=== PATIENT | male | born 1960 | race Hispanic/Latino ===

== ENCOUNTER 2019-04-07 22:22 | Emergency (ER) | payer SELFPAY ==
--- OUTSIDE RECORDS SUMMARY | 2019-04-07 22:24 | XMS REPORT ---
:1960 [facility] [address] [place] [address] Dr. Leavitt [address] [place] [id number] Care Team Providers Name Role Phone Unavailable Unavailable Unavailable Problems This patient has no known problems. Allergies, Adverse Reactions, Alerts This patient has no known allergies or adverse reactions. Medications This patient has no known medications.
[2019-04-07 23:08] LABS: Basophils % 1.3 % (0-1.3); Eosinophils % 6.5 % (0-4.4); Hematocrit 42.6 % (39.6-49.0); Lymphocytes % 19.8 % (15.3-44.8); MPV 9.8 fL (7.6-11.3); Monocytes % 11.9 % (3.3-12.3); RBC Red Blood Cell Count 4.45 M/uL (4.33-5.43)
[2019-04-07 23:18] LABS: Albumin 2.7 g/dL (3.4-5.0); Bilirubin Direct 0.5 mg/dL (0-0.2); Bilirubin Total 1.1 mg/dL (0.2-1.0); Potassium 3.8 mmol/L (3.5-5.1); Protein, Total 8.1 g/dL (6.4-8.2)
[2019-04-07] MEDS ORDERED: ONDANSETRON 4 MG/2 ML VIAL ONE (23:46)
[2019-04-07] MEDS ORDERED: MORPHINE 4 MG/ML SYR ONE (23:46)
[2019-04-08 00:07] LABS: Blood Morphology Comment NOT SEEN (NOT SEEN); Platelet Estimate DECR; Urine White Blood Cell Casts OK
--- NOTE | 2019-04-08 01:29 | ER ---
Nurse's Notes [facility] Name: Jas Styles Age: 59 yrs Sex: Male : 1960 Arrival Date: 04/07/2019 Time: 22:25 Bed 19 Private MD: Diagnosis: 8 mm stone at left UVJ with moderate left hydroutrteronephrosis. 4 cm mass right hepatic lobe Presentation: 04/07 22:28 Presenting complaint: EMS states: patient was newly diagnosed 3 months ago with liver mg2 CA (2 spots). now he is complaining of bilateral LQ pain but more on the right. Transition of care: patient was not received from another setting of care. Onset of symptoms was January 2019. Risk Assessment: Do you want to hurt yourself or someone else? Patient reports no desire to harm self or others. Initial Sepsis Screen: Does the patient meet any 2 criteria? No. Patient's initial sepsis screen is negative. Does the patient have a suspected source of infection? No. Patient's initial sepsis screen is negative. Care prior to arrival: None. 22:28 Method Of Arrival: EMS: [facility] mg2 22:28 Acuity: SADE 3 mg2 Historical: - Allergies: 22:32 No Known Allergies; mg2 - Home Meds: 22:32 None [Active]; mg2 - PMHx: 22:32 liver CA; liver cirrhosis; hepatitis B and C; mg2 - PSHx: 22:32 spinal surgery-cadaver bone was placement; mg2 - Immunization history:: Flu vaccine is not up to date. - Social history:: Smoking status: Patient/guardian denies using tobacco, Patient uses alcohol, only on a social basis. Patient/guardian denies using street drugs, IV drugs. - Ebola Screening: : No symptoms or risks identified at this time. Screenin:48 Abuse screen: Denies threats or abuse. Nutritional screening: No deficits noted. tl2 Tuberculosis screening: No symptoms or risk factors identified. Fall Risk None identified. Assessment: 22:48 General: Appears in no apparent distress. comfortable, Behavior is calm, cooperative, tl2 appropriate for age. Pain: Complains of pain in right upper quadrant and right lower quadrant. Neuro: Level of Consciousness is awake, alert, obeys commands, Oriented to person, place, time, situation. Respiratory: Airway is patent Respiratory effort is even, unlabored, Respiratory pattern is regular, symmetrical. GI: Bowel sounds present X 4 quads. Abd is soft Abdomen is tender to palpation in right upper quadrant and right lower quadrant. : No signs and/or symptoms were reported regarding the genitourinary system. Derm: Skin is pink, warm \T\ dry. 04/08 00:00 Reassessment: Patient appears in no apparent distress at this time. Patient and/or tl2 family updated on plan of care and expected duration. Pain level reassessed. Patient is alert, oriented x 3, equal unlabored respirations, skin warm/dry/pink. Patient states feeling better. 01:43 Reassessment: Patient appears in no apparent distress at this time. Patient and/or tl2 family updated on plan of care and expected duration. Pain level reassessed. Patient is alert, oriented x 3, equal unlabored respirations, skin warm/dry/pink. pt verbalized understanding of discharge instructions, need for follow up and prescription usage. Vital Signs: 04/07 22:30 BP 148 / 92; Pulse 74; Resp 18; Temp 98.8; Pulse Ox 96% ; Weight 95.25 kg; Height 5 ft. mg2 10 in. (177.80 cm); Pain 8/10; 04/08 00:16 BP 139 / 83; Pulse 75; Resp 18; Pulse Ox 96% on R/A; tl2 01:43 BP 130 / 88; Pulse 78; Resp 18; Pulse Ox 97% on R/A; tl2 04/07 22:30 Body Mass Index 30.13 (95.25 kg, 177.80 cm) mg2 ED Course: 04/07 22:25 Patient arrived in ED. tl2 22:30 Triage completed. mg2 22:32 Arm band placed on. mg2 22:47 Megha Mcfarland, ASHELY is Primary Nurse. tl2 22:48 Patient has correct armband on for positive identification. Bed in low position. Call tl2 light in reach. Side rails up X 1. 22:48 Inserted saline lock: 22 gauge in right antecubital area, using aseptic technique. tl2 Blood collected. 23:09 Russell Carroll MD is Attending Physician. reginaldo 04/08 00:10 CT completed. Patient tolerated procedure well. Patient moved to CT via stretcher. Patient moved back from CT. 01:23 Barbara Fitch MD is Referral Physician. pkl 01:43 No provider procedures requiring assistance completed. IV discontinued, intact, tl2 bleeding controlled, No redness/swelling at site. Pressure dressing applied. Administered Medications: 04/07 23:34 Drug: morphine 4 mg Route: IVP; Site: right antecubital; mg2 04/08 00:00 Follow up: Response: No adverse reaction; Pain is decreased tl2 04/07 23:34 Drug: Zofran 4 mg Route: IVP; Site: right antecubital; mg2 04/08 00:00 Follow up: Response: No adverse reaction tl2 Outcome: 01:27 Discharge ordered by MD. pkl 01:43 Discharged to home ambulatory, with family. tl2 01:43 Condition: stable 01:43 Discharge instructions given to patient, Instructed on discharge instructions, follow up and referral plans. medication usage, Demonstrated understanding of instructions, follow-up care, medications, Prescriptions given X 2. 01:44 Patient left the ED. tl2 Signatures: Russell Carroll MD MD pkl Kulwinder Arora Megha Mcfarland RN RN tl2 Harpreet Russo RN RN mg2
--- NOTE | 2019-04-08 01:30 | EDPHYS ---
Physician Documentation [facility] Name: Jas Styles Age: 59 yrs Sex: Male : 1960 Arrival Date: 04/07/2019 Time: 22:25 Bed 19 Private MD: ED Physician Russell Carroll HPI: 04/07 23:26 This 59 yrs old Male presents to ER via EMS with complaints of Abd Pain > 50 pkl y/o. 23:26 The patient presents with abdominal pain in the lower abdomen. Onset: The pkl symptoms/episode began/occurred today. Patient diagnosed 3 months with liver cancer. 23:35 The symptoms do not radiate. Associated signs and symptoms: none. pkl Historical: - Allergies: 22:32 No Known Allergies; mg2 - Home Meds: 22:32 None [Active]; mg2 - PMHx: 22:32 liver CA; liver cirrhosis; hepatitis B and C; mg2 - PSHx: 22:32 spinal surgery-cadaver bone was placement; mg2 - Immunization history:: Flu vaccine is not up to date. - Social history:: Smoking status: Patient/guardian denies using tobacco, Patient uses alcohol, only on a social basis. Patient/guardian denies using street drugs, IV drugs. - Ebola Screening: : No symptoms or risks identified at this time. ROS: 23:35 Eyes: Negative for injury, pain, redness, and discharge, ENT: Negative for injury, pkl pain, and discharge, Neck: Negative for injury, pain, and swelling, Cardiovascular: Negative for chest pain, palpitations, and edema, Respiratory: Negative for shortness of breath, cough, wheezing, and pleuritic chest pain. 23:35 Abdomen/GI: Positive for abdominal pain, of the right lower quadrant and left lower quadrant. 23:35 Back: Negative for acute changes. 23:35 : Negative for urinary symptoms. 23:35 MS/extremity: Negative for acute changes. 23:35 Skin: Negative for rash. 23:35 Neuro: Negative for altered mental status. Exam: 23:35 Head/Face: Normocephalic, atraumatic. Eyes: Pupils equal round and reactive to light, pkl extra-ocular motions intact. Lids and lashes normal. Conjunctiva and sclera are non-icteric and not injected. Cornea within normal limits. Periorbital areas with no swelling, redness, or edema. ENT: Nares patent. No nasal discharge, no septal abnormalities noted. Tympanic membranes are normal and external auditory canals are clear. Oropharynx with no redness, swelling, or masses, exudates, or evidence of obstruction, uvula midline. Mucous membranes moist. Neck: Trachea midline, no thyromegaly or masses palpated, and no cervical lymphadenopathy. Supple, full range of motion without nuchal rigidity, or vertebral point tenderness. No Meningismus. Chest/axilla: Normal chest wall appearance and motion. Nontender with no deformity. No lesions are appreciated. Cardiovascular: Regular rate and rhythm with a normal S1 and S2. No gallops, murmurs, or rubs. Normal PMI, no JVD. No pulse deficits. Respiratory: Lungs have equal breath sounds bilaterally, clear to auscultation and percussion. No rales, rhonchi or wheezes noted. No increased work of breathing, no retractions or nasal flaring. 23:35 Abdomen/GI: Bowel sounds: normal, Palpation: soft, mild abdominal tenderness, in the right lower quadrant and left lower quadrant. 23:35 Back: Exam negative for acute changes. 23:35 : Exam negative for acute changes. 23:35 Musculoskeletal/extremity: Exam is negative for acute changes. 23:35 Skin: Exam negative for rash. 23:35 Neuro: Orientation: is normal, Mentation: is normal, Cranial nerves: grossly normal, Motor: is normal. Vital Signs: 22:30 BP 148 / 92; Pulse 74; Resp 18; Temp 98.8; Pulse Ox 96% ; Weight 95.25 kg; Height 5 ft. mg2 10 in. (177.80 cm); Pain 8/10; 04/08 00:16 BP 139 / 83; Pulse 75; Resp 18; Pulse Ox 96% on R/A; tl2 01:43 BP 130 / 88; Pulse 78; Resp 18; Pulse Ox 97% on R/A; tl2 04/07 22:30 Body Mass Index 30.13 (95.25 kg, 177.80 cm) mg2 MDM: 04/07 23:09 Patient medically screened. pkl 04/08 01:22 Data reviewed: vital signs, nurses notes, lab test result(s), radiologic studies, CT pkl scan. 04/07 22:47 Order name: Basic Metabolic Panel; Complete Time: 23:22 tl2 04/07 22:47 Order name: CBC with Diff; Complete Time: 00:31 tl2 04/07 22:47 Order name: Creatinine for Radiology; Complete Time: 23:22 tl2 04/07 22:47 Order name: Hepatic Function; Complete Time: 23:22 tl2 04/07 22:47 Order name: Lipase; Complete Time: 23:22 tl2 04/07 23:11 Order name: CBC Smear Scan; Complete Time: 00:31 EDMS 04/07 22:47 Order name: IV Saline Lock; Complete Time: 22:48 tl2 04/07 22:47 Order name: Labs collected and sent; Complete Time: 22:48 tl2 04/07 23:24 Order name: CT Abd/Pelvis - IV Contrast Only pkl Administered Medications: 04/07 23:34 Drug: morphine 4 mg Route: IVP; Site: right antecubital; mg2 04/08 00:00 Follow up: Response: No adverse reaction; Pain is decreased tl2 04/07 23:34 Drug: Zofran 4 mg Route: IVP; Site: right antecubital; mg2 04/08 00:00 Follow up: Response: No adverse reaction tl2 Disposition: 04/08/19 01:27 Discharged to Home. Impression: 8 mm stone at left UVJ with moderate left hydroutrteronephrosis. 4 cm mass right hepatic lobe. - Condition is Stable. - Prescriptions for Tylenol- Codeine #3 300-30 mg Oral Tablet - take 2 tablet by ORAL route every 6 hours As needed; 30 tablet. Flomax 0.4 mg Oral Capsule, Sust. Release 24 hr - take 1 capsule by ORAL route once daily 1/2 hour following the same meal each day; 15 capsule. - Medication Reconciliation Form, Thank You Letter, Antibiotic Education, Prescription Opioid Use form. - Follow up: Barbara Fitch MD; When: 2 - 3 days; Reason: Re-evaluation by your physician. - Problem is new. - Symptoms have improved. Signatures: Dispatcher [employer] Russell Ross MD MD pkl Knox, Taylor, RN RN tl2 Harpreet Russo RN RN mg2 Corrections: (The following items were deleted from the chart) 01:44 01:27 04/08/2019 01:27 Discharged to Home. Impression: 8 mm stone at left UVJ with tl2 moderate left hydroutrteronephrosis. 4 cm mass right hepatic lobe. Condition is Stable. Forms are Medication Reconciliation Form, Thank You Letter, Antibiotic Education, Prescription Opioid Use. Follow up: Barbara Fitch; When: 2 - 3 days; Reason: Re-evaluation by your physician. Problem is new. Symptoms have improved. pkl
[2019-04-08 04:05] VITALS: TEMP 98.8
[2019-04-08 04:07] VITALS: BP 130/88; O2SAT 97
--- NOTE | 2019-04-08 11:07 | RAD REPORT ---
EXAM DESCRIPTION: CT ABDOMEN PELVIS WITH IV CONTRAST CLINICAL HISTORY: Abdominal pain. Recent history of liver cancer. COMPARISON: None. TECHNIQUE: CT scan of the abdomen and pelvis was performed with IV contrast. This exam was performed according to our departmental dose-optimization program, which includes automated exposure control, adjustment of the mA and/or kV according to patient size and/or use of iterative reconstruction techn ique. FINDINGS: The lung bases are clear without pleural or pericardial effusions. There is a small hiatal hernia. The liver has a cirrhotic morphology with a 4 cm mass in the right hepatic lobe. Spleen is enlarged m easuring 15 cm. Gastric varices are noted. Multiple gallstones are present. The pancreas, adrenal gla nds, and right kidney are normal. There is a 8 mm obstructing stone at the left UVJ with moderate lef t hydroureteronephrosis and forniceal rupture. There is also a mildly delayed left-sided nephrogram. Additional punctate nonobstructing stones in both kidneys. The pelvic organs are normal. No small bowel obstruction. The appendix is normal. There is no evidence of diverticulitis. No intrap eritoneal free fluid or free air is identified. Multiple prominent retroperitoneal lymph nodes. Degenerative changes throughout the spine with ankylosis of L1-L2 and L3-L4. Partial ankylosis of the right sacroiliac joint. No aortic dissection. Small fat-containing umbilical hernia. IMPRESSION: 1. 8 mm stone at the left UVJ with moderate left-sided obstruction with forniceal rupt ure. 2. Cirrhotic liver with 4 cm mass in the right hepatic lobe. 3. Sequela of portal hypertension including splenomegaly and gastric varices Electronically signed by: Elvis Romero MD 04/08/2019 12:46 AM CDT Due to temporary technical issues with the PACS/Fluency reporting system, reports are being signed by the in house radiologist as a courtesy to ensure prompt reporting. The interpreting radiologist is f ully responsible for the content of the report.
== END 2019-04-08 01:44 | disposition home or self-care (01) ==
LOC: ER 22:22
DX: N13.2 Hydronephrosis with renal and ureteral calculous obstruction (principal); C22.8 Malignant neoplasm of liver, primary, unspecified as to type; R16.0 Hepatomegaly, not elsewhere classified
CPT/HCPCS: 36415; 74177; 80048; 80076; 83690; 85025; 96374; 96375; 99284; J2405; Q9967

== ENCOUNTER 2019-07-12 01:55 | Emergency (ER) | payer SELFPAY ==
[2019-07-12] MEDS ORDERED: NA CHLORIDE 0.9% 500 ML ONE (03:15)
[2019-07-12] MEDS ORDERED: ONDANSETRON 4 MG/2 ML VIAL ONE (03:15)
[2019-07-12] MEDS ORDERED: NA CHLORIDE 0.9% 1,000 ML ONE (03:15)
[2019-07-12] MEDS ORDERED: MORPHINE 4 MG/ML SYR ONE (03:15)
[2019-07-12] MEDS ORDERED: FAMOTIDINE 20 MG/2 ML VIAL IV ONE (03:15)
[2019-07-12 03:46] LABS: Protime INR 1.26
[2019-07-12 03:51] LABS: Absolute Lymphocytes (CBC) 0.5 K/uL (0.7-4.9); Basophils % 0.6 % (0-1.3); Hematocrit 37.9 % (39.6-49.0); Lymphocytes % 18.5 % (15.3-44.8); MPV 9.9 fL (7.6-11.3); RBC Red Blood Cell Count 3.94 M/uL (4.33-5.43)
[2019-07-12 04:03] LABS: ALT/SGPT 105 U/L (12-78); AST/SGOT 97 U/L (15-37); Albumin 2.9 g/dL (3.4-5.0); Alkaline Phosphatase 251 U/L (45-117); BUN Blood Urea Nitrogen 18 mg/dL (7-18); Bicarbonate 26 mmol/L (21-32); Bilirubin Total 1.7 mg/dL (0.2-1.0); Glucose Level 127 mg/dL (74-106); Lipase 369 U/L (73-393); Magnesium 1.9 mg/dL (1.8-2.4); NT PRO-BNP 69 pg/mL (<125); Potassium 3.1 mmol/L (3.5-5.1); Protein, Total 7.5 g/dL (6.4-8.2); Sodium Level 145 mmol/L (136-145); Troponin (Emerg Dept Use Only) < 0.02 ng/mL (0.0-0.045)
[2019-07-12] MEDS ORDERED: POTASSIUM 25 MEQ EFFERV TAB ONE (04:25)
[2019-07-12 04:49] LABS: Blood Morphology Comment NOT SEEN (NOT SEEN); Platelet Estimate DECR; Urine White Blood Cell Casts OK
--- NOTE | 2019-07-12 06:06 | ER ---
Nurse's Notes [facility] Name: Jas Styles Age: 59 yrs Sex: Male : 1960 Arrival Date: 07/12/2019 Time: 02:03 Bed 7 Private MD: Diagnosis: Abdominal tenderness;Unspecified cirrhosis of liver-hepatitis b and c, liver cancer, hepatocellular carcinoma;Cholecystitis;Hypokalemia Presentation: 07/12 02:03 Presenting complaint: Patient states: that he is having upper abd pain that started fc approx 3 hrs ago. Denies any nausea or vomiting. Hx of liver CA. Transition of care: patient was not received from another setting of care. Onset of symptoms was July 11, 2019 at 23:00. Risk Assessment: Do you want to hurt yourself or someone else? Patient reports no desire to harm self or others. Initial Sepsis Screen: Does the patient meet any 2 criteria? No. Patient's initial sepsis screen is negative. Does the patient have a suspected source of infection? No. Patient's initial sepsis screen is negative. Care prior to arrival: None. 02:03 Method Of Arrival: EMS: [facility] 02:03 Acuity: SADE 3 fc Historical: - Allergies: 02:07 No Known Allergies; fc - Home Meds: 02:07 None [Active]; fc - PMHx: 02:07 hepatitis B and C; LIVER CA; Liver cirrhosis; fc - PSHx: 02:07 spinal surgery-cadaver bone was placement; fc - Immunization history:: Last tetanus immunization: unknown, Flu vaccine is not up to date. - Social history:: Smoking status: Patient uses tobacco products, denies chronic smoking, but will smoke occasionally, Patient uses alcohol, only on a social basis. street drugs, cocaine. - Ebola Screening: : Patient negative for fever greater than or equal to 101.5 degrees Fahrenheit, and additional compatible Ebola Virus Disease symptoms Patient denies exposure to infectious person Patient denies travel to an Ebola-affected area in the 21 days before illness onset. - Family history:: not pertinent. Screenin:06 Abuse screen: Denies threats or abuse. Nutritional screening: No deficits noted. fc Tuberculosis screening: No symptoms or risk factors identified. Fall Risk None identified. Assessment: 02:07 General: Appears in no apparent distress. Behavior is calm, cooperative, appropriate ea for age. Pain: Complains of pain in right upper quadrant and left upper quadrant. Neuro: Level of Consciousness is awake, alert, obeys commands, Oriented to person, place, time, situation. Cardiovascular: Patient's skin is warm and dry. Respiratory: Airway is patent Respiratory effort is even, unlabored, Respiratory pattern is regular, symmetrical. Derm: Skin is dry, Skin is normal, Skin temperature is warm. Musculoskeletal: Circulation, motion, and sensation intact. 02:07 Reassessment: Pt requested that we contact his daughter Pavithra at [phone]. This fc was done and a message left. 03:30 Reassessment: Patient and/or family updated on plan of care and expected duration. Pain ea level reassessed. Patient is alert, oriented x 3, equal unlabored respirations, skin warm/dry/pink. 04:33 Reassessment: Patient and/or family updated on plan of care and expected duration. Pain ea level reassessed. Patient is alert, oriented x 3, equal unlabored respirations, skin warm/dry/pink. Pt taken to CT. 05:11 Reassessment: Patient and/or family updated on plan of care and expected duration. Pain ea level reassessed. Patient is alert, oriented x 3, equal unlabored respirations, skin warm/dry/pink. 06:25 Reassessment: Patient and/or family updated on plan of care and expected duration. Pain ea level reassessed. Attempted to call Pavithra at [phone], voice message left, awaiting for call back. 07:20 Reassessment: Patient appears in no apparent distress at this time. Patient and/or sg family updated on plan of care and expected duration. Pain level reassessed. Patient is alert, oriented x 3, equal unlabored respirations, skin warm/dry/pink. pt reports " did the [facility] nurse talk to my daughter? I know she said she had to leave a message but what did my daughter say?" pt informed that a voicemail was left, no conversation was had between the daughter and the nurse at this time, awaiting a call back. pt stated understanding. 07:35 Reassessment: pt daughter contacted, left a voicemail, pt awaiting transportation to home. 07:40 Reassessment: Patient appears in no apparent distress at this time. Patient and/or sg family updated on plan of care and expected duration. Pain level reassessed. Patient is alert, oriented x 3, equal unlabored respirations, skin warm/dry/pink. Reassessment: pt reports " the doctor never told me what was wrong. informed pt that is now gone for the day." pt given discharge information and given thorough instructions on medication usage, follow up, decrease use of ETOH/[facility]. pt stated understanding, reports " what time is it? My daughter should be up for work already." pt informed another Voicemail for Pavithra was left and that no call back at this time. pt requesting to wait for transport in the lobby. pt ambulatory to ER [facility] with pharmacy technician inpatient Chari. Pt observed having a steady gait at this time. General: Appears in no apparent distress. Behavior is cooperative, appropriate for age. Neuro: Level of Consciousness is awake, alert, obeys commands, Oriented to person, place, time, situation. Derm: Skin is dry, Skin is normal, Skin temperature is warm. Musculoskeletal: Circulation, motion, and sensation intact. Range of motion: intact in all extremities. Vital Signs: 02:03 BP 105 / 72; Pulse 70; Resp 18; Temp 98.0(TE); Pulse Ox 100% on R/A; Weight 86.18 kg fc (R); Height 5 ft. 10 in. (177.80 cm) (R); Pain 10/10; 04:33 BP 146 / 99; Pulse 69; Resp 18; Pulse Ox 99% on R/A; ea 05:40 BP 136 / 93; Pulse 58; Resp 18; Pulse Ox 99% on R/A; ea 06:35 BP 119 / 98; Pulse 60; Resp 18; Pulse Ox 98% on R/A; ea 07:24 BP 129 / 79; Pulse 70; Resp 16; Pulse Ox 100% on R/A; sg 02:03 Body Mass Index 27.26 (86.18 kg, 177.80 cm) ED Course: 02:03 Patient arrived in ED. fc 02:03 Arm band placed on Patient placed in an exam room, on a stretcher. fc 02:04 Ellie Khan, ASHELY is Primary Nurse. ea 02:05 Triage completed. fc 02:06 Patient has correct armband on for positive identification. Placed in gown. Bed in low fc position. Call light in reach. Side rails up X2. Pulse ox on. NIBP on. 02:40 Robi Jaime MD is Attending Physician. denise 03:09 Lipase Sent. ea 03:35 Inserted saline lock: 20 gauge in right antecubital area, using aseptic technique. oe Blood collected. 03:51 XRAY Chest (1 view) In Process Unspecified. EDMS 05:13 CT Abd/Pelvis - PO and IV Contrast In Process Unspecified. EDMS 06:05 Dave Banks MD is Referral Physician. denise 07:36 No provider procedures requiring assistance completed. IV discontinued, intact, sg bleeding controlled, No redness/swelling at site. Pressure dressing applied. Administered Medications: 03:30 Drug: Zofran 4 mg Route: IVP; Site: right antecubital; ea 04:21 Follow up: Response: No adverse reaction; Nausea is decreased ea 03:38 Drug: NS 0.9% 500 ml Route: IV; Rate: bolus; Site: right antecubital; ea 07:00 Follow up: Response: No adverse reaction; IV Status: Completed infusion; IV Intake: sg 500ml 03:38 Drug: NS 0.9% 1000 ml Route: IV; Rate: 125 ml/hr; Site: right antecubital; ea 07:37 Follow up: Response: No adverse reaction; IV Status: Order to discontinue infusion; IV sg Intake: 375ml 03:38 Drug: Pepcid 20 mg Route: IVP; Site: right antecubital; ea 04:20 Follow up: Response: No adverse reaction ea 03:38 Drug: morphine 4 mg {Note: RASS 0.} Route: IVP; Site: right antecubital; ea 04:21 Follow up: Response: No adverse reaction; Pain is decreased; RASS: Alert and Calm (0) ea 04:29 Drug: Potassium Effervescent Tablet 25 mEq Route: PO; ea 06:25 Follow up: Response: No adverse reaction ea Intake: 07:00 IV: 500ml; Total: 500ml. sg 07:37 IV: 375ml; Total: 875ml. sg Outcome: 06:05 Discharge ordered by . denise 07:36 Discharged to home ambulatory. sg 07:36 Condition: good 07:36 Discharge instructions given to patient, Instructed on discharge instructions, follow up and referral plans. medication usage, safety practices, Demonstrated understanding of instructions, follow-up care, medications, Prescriptions given X 4. 07:40 Patient left the ED. sg Signatures: Dispatcher [employer] EDMarlon Dumont RN RN Robi Schafer MD MD cha Chretien, Felicia, RN RN fc Espinosa, Orlando oe Antunez, Elena, RN RN ea
--- NOTE | 2019-07-12 06:06 | EDPHYS ---
Physician Documentation [facility] Name: Jas Styles Age: 59 yrs Sex: Male : 1960 Arrival Date: 07/12/2019 Time: 02:03 Bed 7 Private MD: ED Physician Robi Jaime HPI: 07/12 03:02 This 59 yrs old Male presents to ER via EMS with complaints of Liver pain. [facility] 03:02 The patient presents with abdominal pain in the upper abdomen, abdominal distention in denise the upper abdomen, in the lower abdomen. Onset: The symptoms/episode began/occurred 3 day(s) ago. The symptoms do not radiate. Associated signs and symptoms: Pertinent positives: right upper quad pain. The symptoms are described as crampy, steady. Modifying factors: The symptoms are alleviated by nothing, the symptoms are aggravated by nothing. Severity of pain: At its worst the pain was moderate in the emergency department the pain is unchanged. The patient has not experienced similar symptoms in the past. Historical: - Allergies: 02:07 No Known Allergies; fc - Home Meds: 02:07 None [Active]; fc - PMHx: 02:07 hepatitis B and C; LIVER CA; Liver cirrhosis; fc - PSHx: 02:07 spinal surgery-cadaver bone was placement; fc - Immunization history:: Last tetanus immunization: unknown, Flu vaccine is not up to date. - Social history:: Smoking status: Patient uses tobacco products, denies chronic smoking, but will smoke occasionally, Patient uses alcohol, only on a social basis. street drugs, cocaine. - Ebola Screening: : Patient negative for fever greater than or equal to 101.5 degrees Fahrenheit, and additional compatible Ebola Virus Disease symptoms Patient denies exposure to infectious person Patient denies travel to an Ebola-affected area in the 21 days before illness onset. - Family history:: not pertinent. ROS: 03:02 Constitutional: Negative for fever, chills, and weight loss, Eyes: Negative for injury, denise pain, redness, and discharge, ENT: Negative for injury, pain, and discharge, Neck: Negative for injury, pain, and swelling, Cardiovascular: Negative for chest pain, palpitations, and edema, Respiratory: Negative for shortness of breath, cough, wheezing, and pleuritic chest pain, Back: Negative for injury and pain, : Negative for injury, bleeding, discharge, and swelling, MS/Extremity: Negative for injury and deformity, Skin: Negative for injury, rash, and discoloration, Neuro: Negative for headache, weakness, numbness, tingling, and seizure, Psych: Negative for depression, anxiety, suicide ideation, homicidal ideation, and hallucinations, Allergy/Immunology: Negative for hives, rash, and allergies, Endocrine: Negative for neck swelling, polydipsia, polyuria, polyphagia, and marked weight changes, Hematologic/Lymphatic: Negative for swollen nodes, abnormal bleeding, and unusual bruising. 03:02 Abdomen/GI: Positive for abdominal pain, of the epigastric area and right upper quadrant. Exam: 03:02 Constitutional: This is a well developed, well nourished patient who is awake, alert, denise and in no acute distress. Head/Face: Normocephalic, atraumatic. Eyes: Pupils equal round and reactive to light, extra-ocular motions intact. Lids and lashes normal. Conjunctiva and sclera are non-icteric and not injected. Cornea within normal limits. Periorbital areas with no swelling, redness, or edema. ENT: Nares patent. No nasal discharge, no septal abnormalities noted. Tympanic membranes are normal and external auditory canals are clear. Oropharynx with no redness, swelling, or masses, exudates, or evidence of obstruction, uvula midline. Mucous membranes moist. Neck: Trachea midline, no thyromegaly or masses palpated, and no cervical lymphadenopathy. Supple, full range of motion without nuchal rigidity, or vertebral point tenderness. No Meningismus. Chest/axilla: Normal chest wall appearance and motion. Nontender with no deformity. No lesions are appreciated. Cardiovascular: Regular rate and rhythm with a normal S1 and S2. No gallops, murmurs, or rubs. Normal PMI, no JVD. No pulse deficits. Respiratory: Lungs have equal breath sounds bilaterally, clear to auscultation and percussion. No rales, rhonchi or wheezes noted. No increased work of breathing, no retractions or nasal flaring. Back: No spinal tenderness. No costovertebral tenderness. Full range of motion. Male : Normal genitalia with no discharge or lesions. Skin: Warm, dry with normal turgor. Normal color with no rashes, no lesions, and no evidence of cellulitis. MS/ Extremity: Pulses equal, no cyanosis. Neurovascular intact. Full, normal range of motion. Neuro: Awake and alert, GCS 15, oriented to person, place, time, and situation. Cranial nerves II-XII grossly intact. Motor strength 5/5 in all extremities. Sensory grossly intact. Cerebellar exam normal. Normal gait. Psych: Awake, alert, with orientation to person, place and time. Behavior, mood, and affect are within normal limits. 03:02 Abdomen/GI: Inspection: abdomen appears normal, Bowel sounds: normal, Palpation: mild abdominal tenderness, moderate abdominal tenderness, in the right upper quadrant. Vital Signs: 02:03 BP 105 / 72; Pulse 70; Resp 18; Temp 98.0(TE); Pulse Ox 100% on R/A; Weight 86.18 kg fc (R); Height 5 ft. 10 in. (177.80 cm) (R); Pain 10/10; 04:33 BP 146 / 99; Pulse 69; Resp 18; Pulse Ox 99% on R/A; ea 05:40 BP 136 / 93; Pulse 58; Resp 18; Pulse Ox 99% on R/A; ea 06:35 BP 119 / 98; Pulse 60; Resp 18; Pulse Ox 98% on R/A; ea 07:24 BP 129 / 79; Pulse 70; Resp 16; Pulse Ox 100% on R/A; sg 02:03 Body Mass Index 27.26 (86.18 kg, 177.80 cm) MDM: 02:40 Patient medically screened. [facility] 03:05 Data reviewed: vital signs, nurses notes, lab test result(s), EKG, radiologic studies, [facility] CT scan, plain films. 07/12 03:01 Order name: Basic Metabolic Panel; Complete Time: 04:19 [facility] 07/12 03:01 Order name: CBC with Diff; Complete Time: 06:04 [facility] 07/12 03:01 Order name: LFT's; Complete Time: 04:19 [facility] 07/12 03:01 Order name: Magnesium; Complete Time: 04:19 [facility] 07/12 03:01 Order name: NT PRO-BNP; Complete Time: 04:19 [facility] 07/12 03:01 Order name: PT-INR; Complete Time: 04:19 [facility] 07/12 03:01 Order name: Troponin (emerg Dept Use Only); Complete Time: 04:19 [facility] 07/12 03:01 Order name: XRAY Chest (1 view) [facility] 07/12 03:01 Order name: Lipase; Complete Time: 04:19 [facility] 07/12 03:02 Order name: AMMONIA; Complete Time: 04:19 [facility] 07/12 03:02 Order name: CT Abd/Pelvis - PO and IV Contrast 07/12 04:50 Order name: CBC Smear Scan; Complete Time: 06:04 EDMS 07/12 03:01 Order name: EKG; Complete Time: 03:02 [facility] 07/12 03:01 Order name: Cardiac monitoring; Complete Time: 03:53 [facility] 07/12 03:01 Order name: EKG - Nurse/Tech; Complete Time: 04:45 [facility] 07/12 03:01 Order name: IV Saline Lock; Complete Time: 03:52 [facility] 07/12 03:01 Order name: Labs collected and sent; Complete Time: 03:39 [facility] 07/12 03:01 Order name: O2 Per Protocol; Complete Time: 03:39 [facility] 07/12 03:01 Order name: O2 Sat Monitoring; Complete Time: 03:39 [facility] 07/12 04:21 Order name: PO challenge: juice/oj; Complete Time: 04:35 [facility] Administered Medications: 03:30 Drug: Zofran 4 mg Route: IVP; Site: right antecubital; ea 04:21 Follow up: Response: No adverse reaction; Nausea is decreased ea 03:38 Drug: NS 0.9% 500 ml Route: IV; Rate: bolus; Site: right antecubital; ea 07:00 Follow up: Response: No adverse reaction; IV Status: Completed infusion; IV Intake: sg 500ml 03:38 Drug: NS 0.9% 1000 ml Route: IV; Rate: 125 ml/hr; Site: right antecubital; ea 07:37 Follow up: Response: No adverse reaction; IV Status: Order to discontinue infusion; IV sg Intake: 375ml 03:38 Drug: Pepcid 20 mg Route: IVP; Site: right antecubital; ea 04:20 Follow up: Response: No adverse reaction ea 03:38 Drug: morphine 4 mg {Note: RASS 0.} Route: IVP; Site: right antecubital; ea 04:21 Follow up: Response: No adverse reaction; Pain is decreased; RASS: Alert and Calm (0) ea 04:29 Drug: Potassium Effervescent Tablet 25 mEq Route: PO; ea 06:25 Follow up: Response: No adverse reaction ea Disposition: 07/12/19 06:05 Discharged to Home. Impression: Abdominal tenderness, Unspecified cirrhosis of liver - hepatitis b and c, liver cancer, hepatocellular carcinoma, Cholecystitis, Hypokalemia. - Condition is Stable. - Discharge Instructions: Abdominal Pain, Adult, Potassium Content of Foods, Hepatitis B, Hepatitis C, Nausea and Vomiting, Adult, Abdominal Pain, Adult, [id number], Hepatitis B, Ptqx-ax-Lhaa, Hepatitis C, Tqjm-po-Qama, Hepatomegaly, Hypokalemia, Hepatomegaly, Nkkk-[id number]-Lsvm, Liver Cancer. - Prescriptions for Bentyl 20 mg Oral Tablet - take 1 tablet by ORAL route every 6 hours As needed; 20 tablet. Pepcid 20 mg Oral Tablet - take 1 tablet by ORAL route every 12 hours for 10 days; 20 tablet. Tylenol- Codeine #3 300-30 mg Oral Tablet - take 2 tablets by ORAL route every 6 hours As needed; 20 tablet. Zofran 4 mg Oral Tablet - take 1 tablet by ORAL route every 12 hours As needed; 20 tablet. Lactulose 10 gram/15 mL Oral Solution - take 20 milliliter by ORAL route once daily; 200 milliliter. - Medication Reconciliation Form, Thank You Letter, Antibiotic Education, Prescription Opioid Use form. - Follow up: Private Physician; When: 2 - 3 days; Reason: Recheck today's complaints, Continuance of care, Re-evaluation by your physician. Follow up: Dave Banks MD; When: 2 - 3 days; Reason: Recheck today's complaints, Continuance of care, Re-evaluation by your physician. - Problem is new. - Symptoms have improved. Signatures: Dispatcher [employer] EDMS Marlon Houston RN RN sg Anderson, Corey, MD MD cha Chretien, Felicia, RN RN fc Antunez, Elena, RN RN ea Corrections: (The following items were deleted from the chart) 07:40 06:05 07/12/2019 06:05 Discharged to Home. Impression: Abdominal tenderness; sg Unspecified cirrhosis of liver - hepatitis b and c, liver cancer, hepatocellular carcinoma; Cholecystitis; Hypokalemia. Condition is Stable. Discharge Instructions: Abdominal Pain, Adult, Nausea and Vomiting, Adult, Abdominal Pain, Adult, Mzaq-dt-Sszg, Hepatomegaly, Hepatomegaly, Apfb-[id number], Liver Cancer, Potassium Content of Foods, Hypokalemia. Prescriptions for Bentyl 20 mg Oral Tablet - take 1 tablet by ORAL route every 6 hours As needed; 20 tablet, Pepcid 20 mg Oral Tablet - take 1 tablet by ORAL route every 12 hours for 10 days; 20 tablet, Tylenol-Codeine #3 300-30 mg Oral Tablet - take 2 tablets by ORAL route every 6 hours As needed; 20 tablet, Zofran 4 mg Oral Tablet - take 1 tablet by ORAL route every 12 hours As needed; 20 tablet. and Forms are Medication Reconciliation Form, Thank You Letter, Antibiotic Education, Prescription Opioid Use. Follow up: Private Physician; When: 2 - 3 days; Reason: Recheck today's complaints, Continuance of care, Re-evaluation by your physician. Follow up: Dave Banks; When: 2 - 3 days; Reason: Recheck today's complaints, Continuance of care, Re-evaluation by your physician. Problem is new. Symptoms have improved. denise
[2019-07-12 07:46] VITALS: TEMP 98
[2019-07-12 07:50] VITALS: BP 129/79; O2SAT 100
--- NOTE | 2019-07-12 07:50 | EKG ---
Test Date: 2019-07-12 Test Time: 03:58:24 Survey Party Chief: RUT MEASUREMENT RESULTS: Intervals: Rate: 79 OR: 140 QRSD: 86 QT: 440 QTc: 504 [place]: P: 52 OR: 140 QRS: 5 T: 13 INTERPRETIVE STATEMENTS: Sinus rhythm with occasional premature atrial complexes Prolonged QT Abnormal ECG Compared to ECG 08/29/2015 19:59:41 Prolonged QT interval now present Electronically Signed On 07-12-19 07:49:56 CDT by Micheal Lisa
--- NOTE | 2019-07-12 08:19 | RAD REPORT ---
EXAM DESCRIPTION: Dion Single View07/12/2019 3:51 am CLINICAL HISTORY: Cough COMPARISON: 2014 FINDINGS: The lungs appear clear of acute infiltrate. The heart is normal size IMPRESSION: No acute abnormalities displayed
--- NOTE | 2019-07-12 10:08 | RAD REPORT ---
EXAM DESCRIPTION: CT - Abdomen Pelvis W Contrast - 07/12/2019 7:06 am CLINICAL HISTORY: ABD PAIN COMPARISON: None. TECHNIQUE: CT ABDOMEN PELVIS WITH IV CONTRAST on 07/12/2019 3:02 AM CDT This exam was performed according to our departmental dose-optimization program, which includes autom ated exposure control, adjustment of the mA and/or kV according to patient size and/or use of iterati ve reconstruction technique. FINDINGS: Lower lungs are clear. Abdomen: Liver is cirrhotic in morphology. There is a low-density indeterminate lesion involving the right lobe of the liver measuring 4.0 cm. There is no biliary dilatation. There is a small hiatal her federico. Gallbladder contains multiple gallstones. Spleen is enlarged measuring 15.1 cm. Adrenal glands a re normal. Left kidney contains at least three punctate calculi without hydronephrosis. Right kidney contains five calculi measuring up to 2 mm. There is minimal dilatation of the right renal collecting system without a clear obstructing lesion. There are distal paraesophageal varices. Abdominal aorta is normal in course and caliber without aneurysm. There is no free air. There is no r etroperitoneal adenopathy. Pelvis: There is no bowel obstruction. Urinary bladder is unremarkable. There is no free fluid. Appen mgay is normal. Skeleton: There are no acute osseous findings. No suspicious bony lesions. IMPRESSION: Bilateral nephrolithiasis with mild fullness of the right renal collecting system with n o clear obstructing lesion. Hepatic cirrhosis with an indeterminate 4 cm right hepatic lobe mass. Recommend MRI. Cholelithiasis and splenomegaly. Electronically signed by: Isac Valencia MD 07/12/2019 5:25 AM CDT Due to temporary technical issues with the PACS/Fluency reporting system, reports are being signed by the in house radiologist as a courtesy to ensure prompt reporting. The interpreting radiologist is f ully responsible for the content of the report.
== END 2019-07-12 07:40 | disposition home or self-care (01) ==
LOC: ER 01:55
DX: K81.9 Cholecystitis, unspecified (principal); E87.6 Hypokalemia; B19.10 Unspecified viral hepatitis B without hepatic coma; B19.20 Unspecified viral hepatitis C without hepatic coma; C22.7 Other specified carcinomas of liver; C22.0 Liver cell carcinoma; Z72.0 Tobacco use
CPT/HCPCS: 36415; 71045; 74177; 80048; 80076; 82140; 83690; 83735; 83880; 84484; 85025; 85610; 93005; 96361; 96374; 96375; 99284; J2405; J7030; J7040; Q9967

== ENCOUNTER 2019-10-31 14:35 | Emergency (ER) | payer OTHER, SELFPAY ==
[2019-10-31] MEDS ORDERED: MORPHINE 4 MG/ML SYR ONE (15:21)
[2019-10-31] MEDS ORDERED: ONDANSETRON 4 MG/2 ML VIAL ONE (15:21)
[2019-10-31] MEDS ORDERED: NA CHLORIDE 0.9% 1,000 ML ONE (15:21)
[2019-10-31 16:02] LABS: Basophils % 0.7 % (0-1.3); Hematocrit 41.2 % (39.6-49.0); Lymphocytes % 23.3 % (15.3-44.8); MPV 10.3 fL (7.6-11.3); RBC Red Blood Cell Count 4.42 M/uL (4.33-5.43)
[2019-10-31 16:24] LABS: ALT/SGPT 95 U/L (12-78); AST/SGOT 99 U/L (15-37); Albumin 2.6 g/dL (3.4-5.0); Alkaline Phosphatase 306 U/L (45-117); BUN Blood Urea Nitrogen 13 mg/dL (7-18); Bicarbonate 29 mmol/L (21-32); Bilirubin Direct 0.5 mg/dL (0-0.2); Glucose Level 90 mg/dL (74-106); Lipase 352 U/L (73-393); Potassium 3.9 mmol/L (3.5-5.1); Protein, Total 7.8 g/dL (6.4-8.2); Sodium Level 148 mmol/L (136-145)
--- NOTE | 2019-10-31 17:04 | RAD REPORT ---
EXAM DESCRIPTION: CTAbdomen Pelvis W Contrast - 10/31/2019 4:48 pm CLINICAL HISTORY: Abdominal pain. ABD PAIN COMPARISON: Abdomen Pelvis W Contrast dated 07/12/2019; Abdomen Pelvis W Contrast dated 9 TECHNIQUE: Biphasic CT imaging of the abdomen and pelvis was performed with 100 ml non-ionic IV cont rast. All CT scans are performed using dose optimization technique as appropriate and may include automated exposure control or mA/KV adjustment according to patient size. FINDINGS: The lung bases are clear.Trace left pleural effusion. Small hiatal hernia. Esophageal vari renetta also evident. Prominent liver cirrhosis pattern is present. A circumscribed rounded mass is identified in the super olateral right lobe of the liver measuring 4.3 x 4.0 cm. Additional vague slightly hyperdense mass in the right lobe of the liver slightly more anteriorly measuring 3.3 x 2.9 cm is present. Rounded slig htly hyperdense mass is identified inferior right lobe liver measuring 3.3 x 3.0 cm. Cholelithiasis. Prominent splenomegaly is noted. Pancreas is within normal limits. Nodularity left adrenal gland is s een, unchanged. The right adrenal gland is normal. Punctate bilateral nephrolithiasis is seen without hydronephrosis. No bowel obstruction, free air, free fluid or abscess. Mildly thickened and small bowel loops along t he left abdomen noted. Mild sigmoid diverticulosis coli without diverticulitis. The appendix is sabi l. No evidence of significant lymphadenopathy. No suspicious bony findings. IMPRESSION: Moderate hepatic cirrhosis is present with multiple liver lesions identified. These may represent regenerating nodules, however correlation with alpha fetoprotein levels would be advised. Cholelithiasis. Punctate bilateral renal calculi without hydronephrosis. Splenomegaly. Mildly thickened small bowel loops on the left abdomen may represent enteritis or portal enteropathy.
[2019-10-31 17:07] LABS: Blood Morphology Comment NOTED (NOT SEEN); Platelet Estimate DECR; Poikilocytosis 1+; Urine White Blood Cell Casts OK
--- NOTE | 2019-10-31 17:24 | ER ---
Nurse's Notes [facility] Name: Jas Styles Age: 59 yrs Sex: Male : 1960 Arrival Date: 10/31/2019 Time: 14:41 Bed 7 Private MD: Diagnosis: Cholelithiasis;Unspecified cirrhosis of liver;Liver cancer Presentation: 10/31 14:53 Presenting complaint: Patient states: Epigastric pain x 2 hours ago. Denies fever, NVD. rb1 Transition of care: patient was not received from another setting of care. Onset of symptoms was October 31, 2019 at 13:00. Risk Assessment: Do you want to hurt yourself or someone else? Patient reports no desire to harm self or others. 14:53 Method Of Arrival: Ambulatory rb1 14:53 Acuity: SADE 3 rb1 15:10 Initial Sepsis Screen: Does the patient meet any 2 criteria? No. Patient's initial hb sepsis screen is negative. Does the patient have a suspected source of infection? No. Patient's initial sepsis screen is negative. Care prior to arrival: None. Triage Assessment: 14:55 General: Appears in no apparent distress. comfortable, Behavior is calm, cooperative. rb1 Pain: Complains of pain in epigastric area Pain does not radiate. Pain currently is 9 out of 10 on a pain scale. Neuro: Level of Consciousness is awake, alert, obeys commands, Oriented to person, place, time, situation. Respiratory: Airway is patent Respiratory effort is even, unlabored, Respiratory pattern is regular, symmetrical. GI: No signs and/or symptoms were reported involving the gastrointestinal system. Derm: Skin is pink, warm \T\ dry. Historical: - Allergies: 14:55 No Known Allergies; rb1 - PMHx: 14:55 hepatitis B and C; LIVER CA; Liver cirrhosis; rb1 - PSHx: 14:55 spinal surgery-cadaver bone was placement; rb1 - Immunization history:: Adult Immunizations not up to date. - Coronavirus screen:: The patient has NOT traveled to [place], [place], or [place] in the past 14 days. The patient has NOT had contact with known/suspected case of Coronavirus?. - Social history:: Smoking status: Patient reports the use of cigarette tobacco products, smokes one-half pack cigarettes per day. - Ebola Screening: : Patient negative for fever greater than or equal to 101.5 degrees Fahrenheit, and additional compatible Ebola Virus Disease symptoms. Screenin:00 Abuse screen: Denies threats or abuse. Denies injuries from another. Nutritional hb screening: No deficits noted. Tuberculosis screening: No symptoms or risk factors identified. Fall Risk None identified. Assessment: 15:00 General: Appears in no apparent distress. Behavior is calm, cooperative. Pain: Pain hb currently is 9 out of 10 on a pain scale. Neuro: Level of Consciousness is awake, alert, obeys commands, Oriented to person, place, time, situation. Cardiovascular: Heart tones S1 S2 present Capillary refill < 3 seconds Patient's skin is warm and dry. Respiratory: Airway is patent Respiratory effort is even, unlabored, Respiratory pattern is regular, symmetrical, Breath sounds are clear bilaterally. GI: Abdomen is non-distended, Bowel sounds present X 4 quads. Abd is soft and non tender X 4 quads. Reports upper abdominal pain. : No signs and/or symptoms were reported regarding the genitourinary system. EENT: No signs and/or symptoms were reported regarding the EENT system. Derm: Skin is intact, is healthy with good turgor, Skin is pink, warm \T\ dry. Musculoskeletal: No signs and/or symptoms reported regarding the musculoskeletal system. 16:00 Reassessment: Patient appears in no apparent distress at this time. Patient and/or hb family updated on plan of care and expected duration. Pain level reassessed. Patient is alert, oriented x 3, equal unlabored respirations, skin warm/dry/pink. 17:00 Reassessment: Patient appears in no apparent distress at this time. Patient and/or hb family updated on plan of care and expected duration. Pain level reassessed. Patient is alert, oriented x 3, equal unlabored respirations, skin warm/dry/pink. Vital Signs: 14:55 BP 123 / 74; Pulse 64; Resp 19; Temp 97.3(TE); Pulse Ox 100% on R/A; Weight 83.91 kg rb1 (R); Height 5 ft. 10 in. (177.80 cm) (R); Pain 9/10; 16:00 BP 119 / 76; Pulse 63; Resp 17; Pulse Ox 99% on R/A; hb 17:00 BP 126 / 84; Pulse 64; Resp 15; Pulse Ox 98% on R/A; hb 14:55 Body Mass Index 26.54 (83.91 kg, 177.80 cm) rb1 ED Course: 14:41 Patient arrived in ED. as 14:54 Triage completed. rb1 14:55 Arm band placed on right wrist. rb1 15:00 Robi Vásquez PA is PHCP. cp 15:00 Isaac Avalos MD is Attending Physician. cp 15:00 Patient has correct armband on for positive identification. Bed in low position. Call hb light in reach. Side rails up X 1. 15:13 Pavithra Garcia, RN is Primary Nurse. hb 15:26 Missed attempt(s): 20 gauge in left antecubital area. Bleeding controlled, band aid hb applied, catheter tip intact. 15:29 Radiology exam delayed due to lab results not completed at this time. (BUN/Creatinine). bq 16:04 Initial lab(s) drawn, by me, sent to lab. Inserted saline lock: 22 gauge in left jp3 antecubital area, using aseptic technique. Blood collected. 16:21 Radiology exam delayed due to lab results not completed at this time. (BUN/Creatinine). mw3 16:47 CT completed. Patient tolerated procedure well. Patient moved back from CT. bq 16:49 CT Abd/Pelvis - IV Contrast Only In Process Unspecified. EDMS 17:52 No provider procedures requiring assistance completed. IV discontinued, intact, hb bleeding controlled, No redness/swelling at site. Pressure dressing applied. Administered Medications: 15:57 Drug: NS 0.9% 1000 ml Route: IV; Rate: 1 bolus; Site: left antecubital; hb 17:15 Follow up: Response: No adverse reaction; IV Status: Completed infusion; IV Intake: hb 1000ml 15:57 Drug: morphine 2 mg Route: IVP; Site: left antecubital; hb 15:57 Drug: Zofran 4 mg Route: IVP; Site: left antecubital; hb 16:35 Follow up: Response: No adverse reaction hb 16:25 Drug: morphine 2 mg Route: IVP; Site: left antecubital; hb 17:02 Follow up: Response: No adverse reaction hb Intake: 17:15 IV: 1000ml; Total: 1000ml. hb Outcome: 17:22 Discharge ordered by . cp 17:52 Discharged to home ambulatory. hb 17:52 Condition: stable 17:52 Discharge instructions given to patient, Instructed on discharge instructions, follow up and referral plans. medication usage, Demonstrated understanding of instructions, follow-up care, medications, Prescriptions given X 2. 17:54 Patient left the ED. Signatures: Dispatcher [employer] EDMS Bre Garcia Amelia as Page, Corey, PA PA cp Barber, Rebecca, RN RN rb1 Pavithra Garcia RN RN Abby Kerns mw3 Jay Jay Riojas jp3
--- NOTE | 2019-10-31 17:24 | EDPHYS ---
Physician Documentation [facility] Name: Jas Styles Age: 59 yrs Sex: Male : 1960 Arrival Date: 10/31/2019 Time: 14:41 Bed 7 Private MD: ED Physician Isaac Avalos HPI: 10/31 15:07 This 59 yrs old Male presents to ER via Ambulatory with complaints of cp Epigastric Pain - liver ca. 15:07 The patient presents with abdominal pain in the right upper quadrant. Onset: The cp symptoms/episode began/occurred today, 2 hour(s) ago. The symptoms do not radiate. Associated signs and symptoms: Pertinent negatives: anorexia, chest pain, constipation, diarrhea, dysuria, fever, vomiting. The symptoms are described as achy. Historical: - Allergies: 14:55 No Known Allergies; rb1 - PMHx: 14:55 hepatitis B and C; LIVER CA; Liver cirrhosis; rb1 - PSHx: 14:55 spinal surgery-cadaver bone was placement; rb1 - Immunization history:: Adult Immunizations not up to date. - Coronavirus screen:: The patient has NOT traveled to [place], [place], or [place] in the past 14 days. The patient has NOT had contact with known/suspected case of Coronavirus?. - Social history:: Smoking status: Patient reports the use of cigarette tobacco products, smokes one-half pack cigarettes per day. - Ebola Screening: : Patient negative for fever greater than or equal to 101.5 degrees Fahrenheit, and additional compatible Ebola Virus Disease symptoms. ROS: 15:20 Constitutional: Negative for body aches, chills, fever, poor PO intake. cp 15:20 Eyes: Negative for injury, pain, redness, and discharge. cp Exam: 15:25 Constitutional: The patient appears in no acute distress, alert, awake, cp non-diaphoretic, non-toxic, well developed, well nourished. 15:25 Head/Face: Normocephalic, atraumatic. cp 15:25 Eyes: Periorbital structures: appear normal, Conjunctiva: normal, no exudate, no injection, Sclera: no appreciated abnormality, Lids and lashes: appear normal, bilaterally. 15:25 ENT: External ear(s): are unremarkable, Nose: is normal, Mouth: Lips: moist, Oral mucosa: pink and intact, moist, Posterior pharynx: is normal, airway is patent, no erythema, no exudate. 15:25 Chest/axilla: Inspection: normal, Palpation: is normal, no crepitus, no tenderness. 15:25 Cardiovascular: Rate: normal, Rhythm: regular, Edema: is not appreciated, JVD: is not appreciated. 15:25 Respiratory: the patient does not display signs of respiratory distress, Respirations: normal, no use of accessory muscles, no retractions, labored breathing, is not present, Breath sounds: are clear throughout, no decreased breath sounds. 15:25 Abdomen/GI: Inspection: abdomen appears normal, Bowel sounds: active, all quadrants, Palpation: soft, in all quadrants, moderate abdominal tenderness, in the epigastric area, rebound tenderness, is not appreciated, involuntary guarding, is not appreciated. 15:25 Back: pain, is absent, ROM is normal. Vital Signs: 14:55 BP 123 / 74; Pulse 64; Resp 19; Temp 97.3(TE); Pulse Ox 100% on R/A; Weight 83.91 kg rb1 (R); Height 5 ft. 10 in. (177.80 cm) (R); Pain 9/10; 16:00 BP 119 / 76; Pulse 63; Resp 17; Pulse Ox 99% on R/A; hb 17:00 BP 126 / 84; Pulse 64; Resp 15; Pulse Ox 98% on R/A; hb 14:55 Body Mass Index 26.54 (83.91 kg, 177.80 cm) rb1 MDM: 15:01 Patient medically screened. cp 16:00 Differential diagnosis: cholecystitis, Cholelithiasis, gastritis, gastroesophageal cp reflux disease, GI Bleed, pancreatitis, Peptic Ulcer Disease, Perf. Duodenal Ulcer, Perf. Gastric Ulcer. 17:21 Data reviewed: vital signs, nurses notes, lab test result(s), radiologic studies, CT cp scan, I have discussed the patient's presentation/case with the attending Emergency Department Physician; and as a result, I will discharge patient. 17:22 Counseling: I had a detailed discussion with the patient and/or guardian regarding: the cp historical points, exam findings, and any diagnostic results supporting the discharge/admit diagnosis, lab results, radiology results, the need for outpatient follow up, for definitive care, a general surgeon, oncology, to return to the emergency department if symptoms worsen or persist or if there are any questions or concerns that arise at home. 17:22 Response to treatment: the patient's symptoms have markedly improved after treatment, cp and as a result, I will discharge patient. Special discussion: Based on the patient's Hx, exam, and Dx evaluation, there is no indication for emergent surgery or inpatient Tx. It is understood by the patient/guardian that if the Sx's persist or worsen they need to return immediately for re-evaluation. 02 15:06 Order name: Basic Metabolic Panel; Complete Time: 16:26 cp 10/31 16:27 Interpretation: Normal except: NA 148; CL 115; CA 8.3. cp 10/31 15:06 Order name: CBC with Diff; Complete Time: 17:12 cp 10/31 17:12 Interpretation: Normal except: WBC 4.2; MCV 93.2; PLT 78; EOSINOPHIL % 16.5; EOSA 0.7. cp 10/31 15:06 Order name: Creatinine for Radiology; Complete Time: 16:26 cp 10/31 15:06 Order name: Hepatic Function; Complete Time: 16:26 cp 10/31 16:27 Interpretation: Normal except: AST 99; ALT 95; ALK 306; BILID 0.5; ALB 2.6; GLOB 5.2; cp A/G 0.5. 10/31 15:06 Order name: Lipase; Complete Time: 16:26 cp 10/31 16:27 Interpretation: LIP 352; Reviewed. cp 10/31 15:06 Order name: IV Saline Lock; Complete Time: 15:57 cp 10/31 15:06 Order name: Labs collected and sent; Complete Time: 15:57 cp 10/31 15:06 Order name: CT Abd/Pelvis - IV Contrast Only; Complete Time: 17:12 cp 10/31 17:08 Order name: CBC Smear Scan; Complete Time: 17:12 EDMS 10/31 17:18 Order name: PO challenge; Complete Time: 17:50 cp Administered Medications: 15:57 Drug: NS 0.9% 1000 ml Route: IV; Rate: 1 bolus; Site: left antecubital; hb 17:15 Follow up: Response: No adverse reaction; IV Status: Completed infusion; IV Intake: hb 1000ml 15:57 Drug: morphine 2 mg Route: IVP; Site: left antecubital; hb 15:57 Drug: Zofran 4 mg Route: IVP; Site: left antecubital; hb 16:35 Follow up: Response: No adverse reaction hb 16:25 Drug: morphine 2 mg Route: IVP; Site: left antecubital; hb 17:02 Follow up: Response: No adverse reaction hb Disposition: 18:30 Co-signature as Attending Physician, Isaac Avalos MD. rn Disposition: 10/31/19 17:22 Discharged to Home. Impression: Cholelithiasis, Unspecified cirrhosis of liver, Liver cancer. - Condition is Stable. - Discharge Instructions: Biliary Colic, Adult, Cholelithiasis. - Prescriptions for Zofran 4 mg Oral Tablet - take 1 tablet by ORAL route every 12 hours As needed; 20 tablet. Tramadol 50 mg Oral Tablet - take 1 tablet by ORAL route every 8 hours as needed; 20 tablet. - Medication Reconciliation Form, Thank You Letter, Antibiotic Education, Prescription Opioid Use form. - Follow up: Private Physician; When: 2 - 3 days; Reason: Recheck today's complaints. - Problem is an ongoing problem. - Symptoms have improved. Signatures: Dispatcher [employer] EDIsaac Marshall MD MD rn Robi Vásquez PA PA cp Kaitlynn Riddle RN RN rb1 Pavithra Garcia RN RN hb Corrections: (The following items were deleted from the chart) 16:27 16:26 Normal except: NA 148; CL 115. cp cp 17:12 16:27 Normal except: WBC 4.2; MCV 93.2; PLT 78; EOSINOPHIL % 16.5. cp cp 17:24 17:22 10/31/2019 17:22 Discharged to Home. Impression: Cholelithiasis. Condition is cp Stable. Forms are Medication Reconciliation Form, Thank You Letter, Antibiotic Education, Prescription Opioid Use. Follow up: Private Physician; When: 2 - 3 days; Reason: Recheck today's complaints. Problem is an ongoing problem. Symptoms have improved. cp 17:54 17:24 10/31/2019 17:22 Discharged to Home. Impression: Cholelithiasis; Unspecified hb cirrhosis of liver; Liver cancer. Condition is Stable. Discharge Instructions: Biliary Colic, Adult, Cholelithiasis. Forms are Medication Reconciliation Form, Thank You Letter, Antibiotic Education, Prescription Opioid Use. Follow up: Private Physician; When: 2 - 3 days; Reason: Recheck today's complaints. Problem is an ongoing problem. Symptoms have improved. cp
[2019-10-31 18:04] VITALS: TEMP 97.3
[2019-10-31 18:07] VITALS: BP 126/84; O2SAT 98
== END 2019-10-31 17:54 | disposition home or self-care (01) ==
LOC: ER 14:35
DX: K74.60 Unspecified cirrhosis of liver (principal); C22.9 Malignant neoplasm of liver, not specified as primary or secondary; K80.20 Calculus of gallbladder without cholecystitis without obstruction; B19.10 Unspecified viral hepatitis B without hepatic coma; B19.20 Unspecified viral hepatitis C without hepatic coma
CPT/HCPCS: 96361; 85025; 80048; 36415; 80076; 83690; 74177; 96375; 96374; 99284; Q9967; J7030; J2405

== ENCOUNTER 2019-11-19 | Emergency (ER) | payer SELFPAY ==
--- NOTE | 2019-11-19 02:46 | ER ---
Nurse's Notes [facility] Name: Jas Styles Age: 59 yrs Sex: Male : 1960 Arrival Date: 11/19/2019 Time: 02:36 Bed 6 Private MD: Diagnosis: Presentation: 11/19 02:38 Chief complaint: EMS states: PATIENT STARTED HAVING PAIN AT 2130 YESTERDAY. DENIES ANY rv NAUSEA AND VOMITING. HE THINKS IT HIS GALL BLADDER. PAIN IS POSITIONAL. Coronavirus screen: The patient has NOT traveled to [place] in the past 14 days. Proceed with normal triage procedures. The patient has NOT had contact with known and/or suspected case of Coronavirus. Proceed with normal triage procedures. Ebola Screen: No symptoms or risks identified at this time. Initial Sepsis Screen: Does the patient meet any 2 criteria? No. Patient's initial sepsis screen is negative. Does the patient have a suspected source of infection? No. Patient's initial sepsis screen is negative. Risk Assessment: Do you want to hurt yourself or someone else? Patient reports no desire to harm self or others. 02:38 Method Of Arrival: EMS: [facility] rv 02:38 Acuity: SADE 3 rv Historical: - Allergies: 02:42 No Known Allergies; rv - Home Meds: 02:42 None [Active]; rv - PMHx: 02:42 hepatitis B and C; LIVER CA; Liver cirrhosis; rv - PSHx: 02:42 None; rv - Immunization history:: Adult Immunizations unknown. - Social history:: Smoking status: Patient reports the use of cigarette tobacco products, denies chronic smoking, but will smoke occasionally, Patient uses alcohol, occasionally. street drugs, cocaine. Screenin:44 Abuse screen: Denies threats or abuse. Denies injuries from another. Nutritional rv screening: No deficits noted. Tuberculosis screening: No symptoms or risk factors identified. Fall Risk None identified. Assessment: 02:42 General: Appears in no apparent distress. Behavior is calm, cooperative. Pain: rv Complains of pain in abdomen Pain currently is 8 out of 10 on a pain scale. Neuro: Level of Consciousness is awake, alert, obeys commands, Oriented to person, place, time, situation. Cardiovascular: Patient's skin is warm and dry. Respiratory: Airway is patent. GI: Bowel sounds present X 4 quads. Abd is soft and non tender X 4 quads. 02:43 Reassessment: PATIENT ELOPED WITHOUT SIGNING THE AMA FORM FOR UNKNOWN REASON. rv Vital Signs: 02:37 BP 132 / 82; Pulse 81; Resp 18; Temp 98.8; Pulse Ox 100% ; Weight 90.72 kg; Height 5 rv ft. 10 in. (177.80 cm); Pain 8/10; 02:37 Body Mass Index 28.70 (90.72 kg, 177.80 cm) rv ED Course: 02:36 Patient arrived in ED. ds1 02:37 Darci James, RN is Primary Nurse. rv 02:41 Triage completed. rv 02:42 Arm band placed on Patient placed in the treatment room, on a stretcher, Patient rv notified of wait time. 02:44 Patient has correct armband on for positive identification. Pulse ox on. NIBP on. rv 02:44 No provider procedures requiring assistance completed. Patient did not have IV access rv during this emergency room visit. Administered Medications: No medications were administered Outcome: 02:44 Eloped from patient exam room, after seeing physician Time discovered patient gone: rv November 19, 2019 at 02:44 02:44 Condition: unchanged 02:44 Eloped from patient exam room, after seeing physician Time discovered patient gone: sg November 19, 2019 at 02:45 02:44 Condition: unchanged 02:45 Patient left the ED. rv Signatures: Marlon Houston RN RN GoldenLeatha bragg ds1 Darci James, ASHELY RN rv
== END 2019-11-19 02:45 | disposition left against medical advice (07) ==
DX: R10.9 Unspecified abdominal pain (principal)
CPT/HCPCS: 99283

== ENCOUNTER 2020-02-28 00:12 | Inpatient (IN) | payer SELFPAY ==
[2020-02-28 00:49] LABS: Basophils % 0.8 % (0-1.3); Hematocrit 38.7 % (39.6-49.0); Lymphocytes % 29.4 % (15.3-44.8); MPV 10.1 fL (7.6-11.3); RBC Red Blood Cell Count 4.17 M/uL (4.33-5.43)
[2020-02-28 00:50] LABS: Protime INR 1.25
[2020-02-28 01:02] LABS: ALT/SGPT 125 U/L (12-78); AST/SGOT 148 U/L (15-37); Albumin 2.4 g/dL (3.4-5.0); Alkaline Phosphatase 220 U/L (45-117); BUN Blood Urea Nitrogen 14 mg/dL (7-18); Bicarbonate 22 mmol/L (21-32); Bilirubin Direct 0.6 mg/dL (0-0.2); Bilirubin Total 1.1 mg/dL (0.2-1.0); Glucose Level 107 mg/dL (74-106); Lipase 325 U/L (73-393); Magnesium 1.8 mg/dL (1.8-2.4); NT PRO-BNP 16 pg/mL (<125); Potassium 3.5 mmol/L (3.5-5.1); Protein, Total 7.4 g/dL (6.4-8.2); Sodium Level 142 mmol/L (136-145); Troponin (Emerg Dept Use Only) < 0.02 ng/mL (0.0-0.045)
[2020-02-28] MEDS ORDERED: MORPHINE 2 MG/ML SYR ONE (01:08)
[2020-02-28] MEDS ORDERED: FAMOTIDINE 20 MG/2 ML VIAL IV ONE (01:09)
[2020-02-28 01:24] LABS: Blood Morphology Comment NOT SEEN (NOT SEEN); Platelet Estimate DECR; Urine White Blood Cell Casts OK
[2020-02-28 03:04] LABS: Urine Blood NEGATIVE (NEG); Urine Glucose NEGATIVE (NEG); Urine Protein NEGATIVE (NEG); Urine Specific Gravity 1.015 (1.005-1.030)
[2020-02-28] MEDS ORDERED: PIPER/TAZO/NS 3.375gm 3.375 GM/100 ML BAG ONE (03:28)
--- NOTE | 2020-02-28 03:29 | ER ---
Nurse's Notes [facility] Name: Jsa Styles Age: 60 yrs Sex: Male : 1960 Arrival Date: 02/28/2020 Time: 00:13 Bed 2 Private MD: Diagnosis: Acute appendicitis Presentation: 02/27 00:14 Chief complaint: EMS states: CHEST PAIN STARTED 11PM LAST NIGHT. PATIENT SITTING rv COMFORTABLY ON THE COUCH WHEN CHEST PAIN STARTED. NON RADIATING. DESCRIBED CONSTANT AND SHARP, 9/10 PAIN SCALE. Coronavirus screen: Proceed with normal triage. Ebola Screen: No symptoms or risks identified at this time. Initial Sepsis Screen: Does the patient meet any 2 criteria? No. Patient's initial sepsis screen is negative. Does the patient have a suspected source of infection? No. Patient's initial sepsis screen is negative. Risk Assessment: Do you want to hurt yourself or someone else? Patient reports no desire to harm self or others. Onset of symptoms was February 27, 2020 at 23:00. 00:14 Method Of Arrival: EMS: [facility] rv 00:14 Acuity: SADE 3 rv Triage Assessment: 00:19 General: Appears comfortable, Behavior is calm, cooperative. Pain: Complains of pain in rv chest Pain does not radiate. Pain currently is 8 out of 10 on a pain scale. Quality of pain is described as sharp, Pain began 1 hour ago. EENT: No signs and/or symptoms were reported regarding the EENT system. Neuro: Level of Consciousness is awake, alert, obeys commands, Oriented to person, place, time, situation. Cardiovascular: Patient's skin is warm and dry. Rhythm is regular. Respiratory: Airway is patent Respiratory effort is even, unlabored, Respiratory pattern is regular, symmetrical, Breath sounds are clear bilaterally. Derm: Skin is intact. Historical: - Allergies: 00:19 No Known Allergies; rv - Home Meds: 00:19 EPCLUSA 400MG/100MG ONCE DAILY [Active]; hydroxyzine HCl 25 mg Oral tab 1 tab 4 times rv per day [Active]; propranolol 20 mg Oral tab 1 tab 2 times per day [Active]; pantoprazole 40 mg oral TbEC 1 tab 2 times per day [Active]; Nexavar 200 mg oral tab [Active]; - PMHx: 00:19 hepatitis B and C; LIVER CA; Liver cirrhosis; rv - PSHx: 00:19 None; rv - Immunization history:: Flu vaccine is up to date. - Social history:: Smoking status: Patient reports the use of cigarette tobacco products, denies chronic smoking, but will smoke occasionally. Screenin:21 Abuse screen: Denies threats or abuse. Denies injuries from another. Nutritional rv screening: No deficits noted. Tuberculosis screening: No symptoms or risk factors identified. Fall Risk None identified. Assessment: 00:30 General: Appears in no apparent distress. comfortable, Behavior is calm, cooperative, jb4 appropriate for age. 00:30 Pain: Complains of pain in diaphragm Pain does not radiate. Pain currently is 8 out of jb4 10 on a pain scale. Quality of pain is described as pressure, Pain began 2300 Is continuous. Neuro: Level of Consciousness is awake, alert, obeys commands, Oriented to person, place, time, situation. Cardiovascular: Patient's skin is warm and dry. Rhythm is sinus rhythm. Respiratory: Airway is patent Respiratory effort is even, unlabored, Respiratory pattern is regular, symmetrical. GI: Reports upper abdominal pain. : No signs and/or symptoms were reported regarding the genitourinary system. EENT: No signs and/or symptoms were reported regarding the EENT system. Derm: Skin is intact, Skin is pink, warm \T\ dry. Musculoskeletal: Circulation, motion, and sensation intact. Range of motion: intact in all extremities. 01:15 Reassessment: Patient appears in no apparent distress at this time. Patient and/or jb4 family updated on plan of care and expected duration. Pain level reassessed. Patient is alert, oriented x 3, equal unlabored respirations, skin warm/dry/pink. 01:25 Reassessment: pt to CT. jb4 02:15 Reassessment: Patient appears in no apparent distress at this time. Patient and/or jb4 family updated on plan of care and expected duration. Pain level reassessed. Patient is alert, oriented x 3, equal unlabored respirations, skin warm/dry/pink. 03:30 Reassessment: Patient appears in no apparent distress at this time. Patient and/or jb4 family updated on plan of care and expected duration. Pain level reassessed. Patient is alert, oriented x 3, equal unlabored respirations, skin warm/dry/pink. Patient denies pain at this time. 04:30 Reassessment: Patient appears in no apparent distress at this time. Patient and/or jb4 family updated on plan of care and expected duration. Pain level reassessed. Patient is alert, oriented x 3, equal unlabored respirations, skin warm/dry/pink. Patient denies pain at this time. 04:57 Reassessment: report called to ASHELY Clark. jb4 Vital Signs: 00:14 BP 136 / 100; Pulse 70; Resp 17; Temp 99.3; Pulse Ox 100% ; Weight 86.18 kg; Height 5 rv ft. 8 in. (172.72 cm); Pain 8/10; 00:39 BP 128 / 90; Pulse 67; Resp 16; Pulse Ox 97% on R/A; rv 01:15 BP 121 / 85; Pulse 67; Resp 17; Pulse Ox 97% on R/A; jb4 02:15 BP 116 / 76; Pulse 71; Resp 11; Pulse Ox 100% on R/A; jb4 03:30 BP 125 / 85; Pulse 64; Resp 18; Pulse Ox 99% on R/A; Pain 0/10; jb4 04:30 BP 136 / 86; Pulse 69; Resp 18; Pulse Ox 98% on R/A; jb4 05:00 BP 123 / 77; Pulse 65; Resp 16; Temp 97.3(TE); Pulse Ox 98% on R/A; Pain 0/10; jb4 00:14 Body Mass Index 28.89 (86.18 kg, 172.72 cm) rv ED Course: 00:13 Patient arrived in ED. rv 00:14 Freddie Dennis MD is Attending Physician. mh7 00:15 Triage completed. rv 00:21 Arm band placed on Patient placed in the treatment room, on a stretcher, Patient rv notified of wait time. 00:21 Patient has correct armband on for positive identification. Bed in low position. Call rv light in reach. Side rails up X 1. nurse monitoring on. Pulse ox on. NIBP on. 00:21 No provider procedures requiring assistance completed. Patient maintains SpO2 rv saturation greater than 95% on room air. 00:21 Maintain EMS IV. Dressing intact. Good blood return noted. Site clean \T\ dry. Gauge \T\ rv site: G18 RIGHT AC. IV is patent, with fluids infusing freely, with good blood return. 00:23 Chauncey Lowery RN is Primary Nurse. jb4 00:36 Initial lab(s) drawn, by ED staff, sent to lab. EKG done, by ED staff, reviewed by aldo Dennis MD. 00:37 Primary Nurse role handed off by Chauncey Lowery, RN rv 00:37 Darci James RN is Primary Nurse. rv 00:41 XRAY Chest (1 view) In Process Unspecified. EDMS 01:15 Chauncey Lowery RN is Primary Nurse. jb4 01:[address] rv 01:[address]. rv 01:49 CT Abd/Pelvis - IV Contrast Only In Process Unspecified. EDMS 03:28 Juan Iglesias MD is Hospitalizing Provider. mh7 04:58 Patient admitted, IV remains in place. jb4 Administered Medications: 01:04 Drug: morphine 2 mg {Note: rass 0.} Route: IVP; Site: right antecubital; rv 01:30 Follow up: Response: No adverse reaction; Pain is decreased; RASS: Alert and Calm (0) jb4 01:04 Drug: Pepcid 20 mg Route: IVP; Site: right antecubital; rv 01:30 Follow up: Response: No adverse reaction jb4 03:30 Drug: Zosyn 3.375 grams Route: IVPB; Infused Over: 60 mins; Site: right antecubital; jb4 04:30 Follow up: Response: No adverse reaction; IV Status: Completed infusion jb4 Outcome: 03:29 Decision to Hospitalize by Provider. [facility] 04:57 Admitted to Med/surg accompanied by tech, via stretcher, room 220, with chart, Report jb4 called to ASHELY Clark 04:57 Condition: stable 04:57 Discharge instructions given to patient, Instructed on the need for admit, Demonstrated understanding of instructions. 05:04 Patient left the ED. jb4 Signatures: Dispatcher [employer] EDMS Chauncey Lowery RN RN jb4 Darci James RN RN rv Holmes, Maurice, MD MD 7
--- NOTE | 2020-02-28 03:30 | EDPHYS ---
Physician Documentation [facility] Name: Jas Styles Age: 60 yrs Sex: Male : 1960 Arrival Date: 02/28/2020 Time: 00:13 Bed 2 Private MD: ED Physician Freddie Dennis HPI: 02/27 00:37 This 60 yrs old Male presents to ER via EMS with complaints of Chest Pain. mh7 00:37 The patient or guardian reports chest pain that is located primarily in the epigastric mh7 area. Onset: today. The pain does not radiate. Associated signs and symptoms: Pertinent positives: abdominal pain, Pertinent negatives: cough, diaphoresis, dizziness, headache, lower extremity pain, lower extremity swelling, lightheadedness, nausea, near syncope, palpitations, recent travel, shortness of breath, syncope, vomiting. 00:40 The patient presents with abdominal pain in the epigastric area, in the upper abdomen. mh7 Onset: The symptoms/episode began/occurred today. The symptoms do not radiate. Associated signs and symptoms: Pertinent negatives: nausea, vomiting, and diarrhea, anorexia, blood in stools, chest pain, constipation, diarrhea, dysuria, fever, headache, hematuria, nausea, palpitations, shortness of breath, testicular pain, vomiting, vomiting blood. The symptoms are described as intermittent, vague, waxing/waning. Modifying factors: The symptoms are alleviated by nothing, the symptoms are aggravated by nothing. Severity of pain: At its worst the pain was moderate today, in the emergency department the pain has improved moderately. The patient has experienced similar episodes in the past, multiple times. Historical: - Allergies: 00:19 No Known Allergies; rv - Home Meds: 00:19 EPCLUSA 400MG/100MG ONCE DAILY [Active]; hydroxyzine HCl 25 mg Oral tab 1 tab 4 times rv per day [Active]; propranolol 20 mg Oral tab 1 tab 2 times per day [Active]; pantoprazole 40 mg oral TbEC 1 tab 2 times per day [Active]; Nexavar 200 mg oral tab [Active]; - PMHx: 00:19 hepatitis B and C; LIVER CA; Liver cirrhosis; rv - PSHx: 00:19 None; rv - Immunization history:: Flu vaccine is up to date. - Social history:: Smoking status: Patient reports the use of cigarette tobacco products, denies chronic smoking, but will smoke occasionally. ROS: 00:40 Constitutional: Negative for fever, chills, and weight loss, Eyes: Negative for injury, mh7 pain, redness, and discharge, ENT: Negative for injury, pain, and discharge, Neck: Negative for injury, pain, and swelling, Cardiovascular: Negative for chest pain, palpitations, and edema, Respiratory: Negative for shortness of breath, cough, wheezing, and pleuritic chest pain, Back: Negative for injury and pain, : Negative for injury, bleeding, discharge, and swelling, MS/Extremity: Negative for injury and deformity, Skin: Negative for injury, rash, and discoloration, Neuro: Negative for headache, weakness, numbness, tingling, and seizure, Psych: Negative for depression, anxiety, suicide ideation, homicidal ideation, and hallucinations, Allergy/Immunology: Negative for hives, rash, and allergies, Endocrine: Negative for neck swelling, polydipsia, polyuria, polyphagia, and marked weight changes, Hematologic/Lymphatic: Negative for swollen nodes, abnormal bleeding, and unusual bruising. Exam: 00:40 Constitutional: This is a well developed, well nourished patient who is awake, alert, mh7 and in no acute distress. Head/Face: Normocephalic, atraumatic. Eyes: Pupils equal round and reactive to light, extra-ocular motions intact. Lids and lashes normal. Conjunctiva and sclera are non-icteric and not injected. Cornea within normal limits. Periorbital areas with no swelling, redness, or edema. ENT: Nares patent. No nasal discharge, no septal abnormalities noted. Tympanic membranes are normal and external auditory canals are clear. Oropharynx with no redness, swelling, or masses, exudates, or evidence of obstruction, uvula midline. Mucous membranes moist. Neck: Trachea midline, no thyromegaly or masses palpated, and no cervical lymphadenopathy. Supple, full range of motion without nuchal rigidity, or vertebral point tenderness. No Meningismus. Chest/axilla: Normal chest wall appearance and motion. Nontender with no deformity. No lesions are appreciated. Cardiovascular: Regular rate and rhythm with a normal S1 and S2. No gallops, murmurs, or rubs. Normal PMI, no JVD. No pulse deficits. Respiratory: Lungs have equal breath sounds bilaterally, clear to auscultation and percussion. No rales, rhonchi or wheezes noted. No increased work of breathing, no retractions or nasal flaring. 00:40 Back: No spinal tenderness. No costovertebral tenderness. Full range of motion. Skin: Warm, dry with normal turgor. Normal color with no rashes, no lesions, and no evidence of cellulitis. MS/ Extremity: Pulses equal, no cyanosis. Neurovascular intact. Full, normal range of motion. Neuro: Awake and alert, GCS 15, oriented to person, place, time, and situation. Cranial nerves II-XII grossly intact. Motor strength 5/5 in all extremities. Sensory grossly intact. Cerebellar exam normal. Normal gait. Psych: Awake, alert, with orientation to person, place and time. Behavior, mood, and affect are within normal limits. 00:40 Abdomen/GI: Inspection: obese Bowel sounds: normal, in all quadrants, Palpation: mild abdominal tenderness, in the epigastric area, right upper quadrant and left upper quadrant, Rectal exam: the exam is deferred, because of patient request, Indicators: McBurney's point is not tender, Conway's sign is negative, Rovsing's sign is negative, Obturator sign is negative, Psoas sign is negative, Liver: is enlarged, Hernia: not appreciated. Vital Signs: 00:14 BP 136 / 100; Pulse 70; Resp 17; Temp 99.3; Pulse Ox 100% ; Weight 86.18 kg; Height 5 rv ft. 8 in. (172.72 cm); Pain 8/10; 00:39 BP 128 / 90; Pulse 67; Resp 16; Pulse Ox 97% on R/A; rv 01:15 BP 121 / 85; Pulse 67; Resp 17; Pulse Ox 97% on R/A; jb4 02:15 BP 116 / 76; Pulse 71; Resp 11; Pulse Ox 100% on R/A; jb4 03:30 BP 125 / 85; Pulse 64; Resp 18; Pulse Ox 99% on R/A; Pain 0/10; jb4 04:30 BP 136 / 86; Pulse 69; Resp 18; Pulse Ox 98% on R/A; jb4 05:00 BP 123 / 77; Pulse 65; Resp 16; Temp 97.3(TE); Pulse Ox 98% on R/A; Pain 0/10; jb4 00:14 Body Mass Index 28.89 (86.18 kg, 172.72 cm) rv MDM: 00:28 Patient medically screened. mh7 03:26 Differential diagnosis: appendicitis, bowel obstruction, cholecystitis, Cholelithiasis, mh7 diverticulitis, gastritis, Irritable bowel syndrome, pancreatitis, Peptic Ulcer Disease, Pyelonephritis, urinary tract infection. Data reviewed: vital signs, nurses notes, EMS record, lab test result(s), cardiac enzymes, CBC, electrolytes, urinalysis, EKG, radiologic studies, CT scan, plain films. Counseling: I had a detailed discussion with the patient and/or guardian regarding: the historical points, exam findings, and any diagnostic results supporting the discharge/admit diagnosis, lab results, radiology results, the need for further work-up and treatment in the hospital. Physician consultation: Chauncey Florence MD regarding admission, patient's condition, and will see patient in inpatient room, would like admission per Dr. Juan Iglesias MD. 03:51 Data interpreted: athletic monitor: rate is 64 beats/min, rhythm is normal sinus rhythm, mh7 regular, Interpretation: normal rate, normal rhythm, Pulse oximetry: on room air is 99 %. Interpretation: normal. 02/27 00:20 Order name: Basic Metabolic Panel rv 02/27 00:20 Order name: CBC with Diff rv 02/27 00:20 Order name: LFT's rv 02/27 00:20 Order name: Magnesium rv 02/27 00:20 Order name: NT PRO-BNP; Complete Time: : rv 02/27 00:20 Order name: PT-INR; Complete Time: : rv 02/27 00:20 Order name: Troponin (emerg Dept Use Only); Complete Time: 01:11 rv 02/27 00:21 Order name: Basic Metabolic Panel; Complete Time: : EDCA 02/27 00:23 Order name: CBC with Automated Diff; Complete Time: 01:59 EDMS 02/27 00:23 Order name: Liver (Hepatic) Function; Complete Time: 01:11 EDMS 02/27 00:23 Order name: Magnesium; Complete Time: : EDCA 02/27 00:43 Order name: Lipase; Complete Time: : EDCA 02/27 00:58 Order name: CBC Smear Scan; Complete Time: 01:59 EDMS 02/27 00:20 Order name: XRAY Chest (1 view) 02/27 00:20 Order name: EKG; Complete Time: 00:23 02/27 01:15 Order name: CT Abd/Pelvis - IV Contrast Only [facility] 02/27 02:34 Order name: Urine Dipstick--Ancillary (enter results); Complete Time: 03:11 2 02/27 04:41 Order name: CONS Pharmacy Consult EDMS 02/27 04:41 Order name: CONS Physician Consult EDMS 02/27 04:41 Order name: CBC with Automated Diff EDMS 02/27 04:41 Order name: Comprehensive Metabolic Panel EDMS 02/27 04:41 Order name: Comprehensive Metabolic Panel EDMS 02/27 04:41 Order name: Protime (+INR) EDMS 02/27 04:41 Order name: Protime (+INR) EDMS 02/27 04:41 Order name: PTT, Activated Partial Thromb EDMS 02/27 04:41 Order name: PTT, Activated Partial Thromb EDMS 02/27 00:20 Order name: Cardiac monitoring; Complete Time: 00:34 02/27 00:20 Order name: EKG - Nurse/Tech; Complete Time: 00:34 02/27 00:20 Order name: IV Saline Lock; Complete Time: 00:34 02/27 00:20 Order name: Labs collected and sent; Complete Time: 00:34 02/27 00:20 Order name: O2 Per Protocol; Complete Time: 00:34 02/27 00:20 Order name: O2 Sat Monitoring; Complete Time: 00:35 02/27 02:01 Order name: Urine Dipstick-Ancillary (obtain specimen); Complete Time: 02:40 [facility] 02/27 04:41 Order name: Heart Healthy EDCA 02/27 04:41 Order name: NPO EDMS Administered Medications: 01:04 Drug: morphine 2 mg {Note: rass 0.} Route: IVP; Site: right antecubital; rv 01:30 Follow up: Response: No adverse reaction; Pain is decreased; RASS: Alert and Calm (0) [facility] 01:04 Drug: Pepcid 20 mg Route: IVP; Site: right antecubital; rv 01:30 Follow up: Response: No adverse reaction jb4 03:30 Drug: Zosyn 3.375 grams Route: IVPB; Infused Over: 60 mins; Site: right antecubital; jb4 04:30 Follow up: Response: No adverse reaction; IV Status: Completed infusion jb4 Disposition: 02/28/20 03:29 Hospitalization ordered by Juan Iglesias for Observation. Preliminary diagnosis is Acute appendicitis. - Bed requested for Telemetry/MedSurg (observation). - Status is Observation. jb4 - Condition is Stable. - Problem is new. - Symptoms have improved. Signatures: Dispatcher [employer] EDCA Sofi Dela Cruz RN RN Chauncey Lowery RN RN jb4 Darci James RN RN Freddie Dennis MD MD mh7 Corrections: (The following items were deleted from the chart) 00:41 00:30 LIPASE+C.LAB.BRZ ordered. EDCA EDCA 03:33 03:29 Hospitalization Ordered by Juan Iglesias MD for Observation. Preliminary diagnosis is Acute appendicitis. Bed requested for Telemetry/MedSurg (observation). Status is Observation. Condition is Stable. Problem is new. Symptoms have improved. mh7 05:04 03:33 02/28/2020 03:29 Hospitalization Ordered by Juan Iglesias MD for Observation. jb4 Preliminary diagnosis is Acute appendicitis. Bed requested for Telemetry/MedSurg (observation). Status is Observation. Condition is Stable. Problem is new. Symptoms have improved.
[2020-02-28] MEDS ORDERED: MORPHINE 2 MG/ML SYR IV PRN (04:36)
[2020-02-28] MEDS ORDERED: ONDANSETRON 4 MG/2 ML VIAL IV PRN (04:36)
[2020-02-28] MEDS ORDERED: ACETAMINOPHEN 500 MG TAB PO PRN (04:36)
[2020-02-28] MEDS ORDERED: NA CHLORIDE 0.9% 1,000 ML IV SCH (05:00)
[2020-02-28] MEDS ORDERED: PIPER/TAZO/NS 3.375gm 3.375 GM/100 ML BAG IVPB SCH ×2 (06:00→09:00)
--- NOTE | 2020-02-28 07:45 | EKG ---
Test Date: 2020-02-28 Test Time: 00:28:01 Visual Merchandiser: RV MEASUREMENT RESULTS: Intervals: Rate: 67 WY: 112 QRSD: 92 QT: 418 QTc: 441 [place]: P: -68 WY: 112 QRS: 17 T: 29 INTERPRETIVE STATEMENTS: Unusual P axis and short [place], probable junctional rhythm Abnormal ECG Compared to ECG 07/12/2019 03:58:24 Sinus rhythm no longer present Atrial premature complex(es) no longer present Prolonged QT interval no longer present Electronically Signed On 02-28-20 07:44:30 CDT by Milton Shine
[2020-02-28 07:48] VITALS: BMI 27.3
--- NOTE | 2020-02-28 08:29 | RAD REPORT ---
EXAM DESCRIPTION: RAD - Chest Single View - 02/28/2020 12:41 am CLINICAL HISTORY: CHEST PAIN Chest pain. COMPARISON: Chest Single View dated 07/12/2019; CHEST SINGLE VIEW dated 08/29/2015; CHEST SINGLE VIEW dated 11/09/2013 FINDINGS: Portable technique limits examination quality. The lungs are grossly clear. The heart is normal in size. No displaced fractures.Cervical spine hardw are is noted. IMPRESSION: No acute intrathoracic process suspected.
--- NOTE | 2020-02-28 08:50 | RAD REPORT ---
EXAM DESCRIPTION: CT ABDOMEN PELVIS WITH IV CONTRAST CLINICAL HISTORY: ABD PAIN TECHNIQUE: Contiguous axial images obtained through the abdomen and pelvis following the uneventful administration of IV contrast. Coronal and sagittal reformatted images were provided. This exam was performed according to our departmental dose-optimization program, which includes autom ated exposure control, adjustment of the mA and/or kV according to patient size and/or use of iterati ve reconstruction technique. COMPARISON: 11/10/2019 FINDINGS: Lung bases: Minimal bibasilar subsegmental atelectasis/pleural parenchymal scar. Liver: Diffuse surface contour nodularity compatible with cirrhosis. 3 heterogeneous lesions within t he right anterior and right posterior hepatic lobes measuring 3.3 cm, 4.3 cm and 3.8 cm without signi ficant interval change. Gallbladder and biliary system: Gallstones are present. Mild gallbladder wall thickening similar to t he prior. Pancreas: Unremarkable Spleen: The spleen is mildly enlarged measuring up to 15 in maximum dimension similar to the prior. Adrenals: Unremarkable Kidneys: Normal renal cortical enhancement. Small bilateral calculi. No hydronephrosis. Bowel: Moderate stool. No obstruction. No appreciable mucosal thickening. Appendix: The appendix is enlarged measuring up to 12 mm in maximum diameter (previously 7 mm). Minim al infiltrative changes within the surrounding fat. Urinary bladder: The urinary bladder is partially decompressed. Reproductive: Unremarkable as visualized Lymph nodes: No pathologically enlarged lymph nodes. Peritoneum: No focal fluid collection. No free air. Vessels: Mild atherosclerotic disease. No abdominal aortic aneurysm. Paraesophageal varices. Recanali zation of the umbilical vein. Left abdominal varices. The main portal, splenic and superior mesenteri c veins are patent. Abdominal wall: Small bilateral fat-containing inguinal hernias. Bones: Multilevel spondylosis. Fusion at L1-L2 and L3-L4 again demonstrated. No acute fracture. IMPRESSION: 1. Findings suggestive of acute appendicitis. Minimal surrounding inflammation. No dis crete fluid collection or extraluminal gas foci. 2. Cholelithiasis. Stable mild nonspecific gallbladder wall thickening, a finding which can be seen in hepatic dysfunction, immunocompromise, hypoalbuminemia, acute or chronic cholecystitis among the diagnostic possibilities. 3. Stable indeterminate hepatic lesions as above. In the setting of cirrhosis, these may be related to regenerative nodules. The possibility of underlying malignancy is not excluded. 4. Other findings as above. THIS REPORT CONTAINS FINDINGS THAT MAY BE CRITICAL TO PATIENT CARE: The findings were verbally discu ssed via telephone conference with Dr. Freddie Dennis on 02/28/2020 2:46 AM CDT. The results were ackno wledged and understood. Electronically signed by: Henri George MD 02/28/2020 2:51 AM CDT Due to temporary technical issues with the PACS/Fluency reporting system, reports are being signed by the in house radiologist without review as a courtesy to ensure prompt reporting. The interpreting r adiologist is fully responsible for the content of the report.
[2020-02-28] MEDS ORDERED: METRONIDAZOLE 500mg IVPB 500 MG/100 ML BAG IV SCH (09:26)
[2020-02-28] MEDS ORDERED: propofoL 200 MG/20 ML VIAL IV ONE (10:16)
[2020-02-28] MEDS ORDERED: ROCURONIUM 50 MG/5 ML VIAL IV ONE (10:17)
[2020-02-28] MEDS ORDERED: MIDAZOLAM HCL 2 MG/2 ML INJ ONE (10:17)
[2020-02-28] MEDS ORDERED: FENTANYL CITR 100 MCG/2 ML ONE ×2 (10:17→12:02)
[2020-02-28] MEDS ORDERED: LIDOCAINE 1% MPF 5 ML VIAL ONE (10:17)
--- NOTE | 2020-02-28 10:59 | P.HP ---
Date of Service: 02/28/20 PC: This 60-year-old male presented with severe right lower quadrant abdominal pain for diagnosis and treatment. HPC: Patient has been having abdominal pain since yesterday. It was located in the upper portion of his abdomen but now has migrated to the right lower quadrant. PMH: Hepatitis, cirrhosis, liver cancer PSHx: NAD SOC: No known allergies SYS REVIEW: No cough, wheeze, shortness of breath. No chest pain or palpitations. Denies any urinary complaints. Good exercise tolerance O/E awake alert vital signs are stable HEENT: Not clinically jaundiced Chest: Chest movement equal bilaterally ABD: The guarding in the right lower quadrant LOCO: Intact DATA: CT scan demonstrates acute appendicitis IMPRESSION: Acute abdomen with acute appendicitis PLAN: I will take her the operating room for laparoscopic possible open appendectomy. The risks of this procedure have been discussed. The possibility of bleeding, infection, injury to bowel and surrounding structures was explained. He understands and wants to proceed.
[2020-02-28] MEDS ORDERED: KETOROLAC 30 MG/ML INJ ONE (11:03)
[2020-02-28] MEDS ORDERED: GLYCOPYRROLATE 0.2 MG/ML SYR ONE (11:03)
[2020-02-28] MEDS ORDERED: dexAMETHasone 10 MG/ML VIAL ONE (11:03)
[2020-02-28] MEDS ORDERED: NEOSTIGMINE 1 MG/ML -5 ML ONE (11:05)
[2020-02-28] MEDS ORDERED: ONDANSETRON 4 MG/2 ML VIAL ONE (11:05)
[2020-02-28] MEDS ORDERED: EPHEDRINE SULF 50 MG/ML VIAL ONE (11:05)
[2020-02-28] MEDS ORDERED: NS 0.9% VIAL 10 ML ONE (11:05)
--- NOTE | 2020-02-28 11:45 | P.OP ---
Preoperative diagnosis: Acute abdomen with appendicitis Postoperative diagnosis: The same Primary procedure: Laparoscopic appendectomy Anesthesia: General Estimated blood loss: Less than 10 cc Specimen: Appendix Operative Technique: The patient was brought to the operating room, placed supine on the table. After the induction of adequate general endotracheal anesthesia, the area of the abdomen was prepped with a DuraPrep solution, and she was draped in the usual aseptic manner. A subumbilical incision was made. This was brought down through the skin and subcutaneous tissue. The Visiport was used to create a pneumoperitoneum to approximately 12 mm of mercury. Under direct vision a 5 mm trocar was placed in the lower midline and another 5 mm in the right upper quadrant. The patient was then positioned in Trendelenburg and rolled to the left side. We were able to visualize right lower quadrant. We could see a mildly inflamed appendix with some surrounding adhesions blunt sharp dissection. The appendix was then gently dissected from the surrounding structures. The junction of the appendix with the with the cecum was identified. An opening was made in the mesentery of the appendix. The 10 mm trocar was now converted to a 12 with the camera moved to the right upper port with a 5 mm view. The linear Stapler was introduced into the peritoneal cavity. It was placed across the base of the appendix and fired. A vascular reload was then placed into the Stapler. The mesentery of the appendix was then taken down. The appendix having been was placed into an Endo-Catch, brought out through the umbilical port site. Attention was turned back towards the right lower quadrant. The area was gently irrigated with the saline solution. The effluent was aspirated. 0.25% Marcaine was aerosolize into the right lower quadrant. Attention was turned towards the umbilical trocar. Using the endo-close, 2 absorbable sutures were placed to close the defect. The patient was now returned to the neutral position on the OR table. The pneumoperitoneum was collapsed, the umbilical sutures tied, and pritesh applied to the skin. At the end of the procedure the patient was in stable condition and sent to the recovery room. Needle sponge and instrument count were correct. 1 specimen was sent for histopathology. Sterile dressings had been applied. Complications: None Transferred to: Recovery Room Condition: Good
[2020-02-28] MEDS ORDERED: NA CHLORIDE 0.9% 1,000 ML ONE (11:46)
[2020-02-28] MEDS ORDERED: HYDROCODONE/APAP 7.5/325 MG TAB PO PRN (12:02)
[2020-02-28 12:23] VITALS: O2SAT 99
--- NOTE | 2020-02-28 13:43 | P.HP ---
Certification for Inpatient Patient admitted to: Inpatient With expected LOS: >2 Midnights Patient will require the following post-hospital care: None Practitioner: I am a practitioner with admitting privileges, knowledge of patient current condition, hospital course, and medical plan of care. Services: Services provided to patient in accordance with Admission requirements found in Title 42 Section 412.3 of the Code of Federal Regulations Patient History Date of Service: 02/28/20 Reason for admission: Acute appendicitis History of Present Illness: Patient is a 60-year-old gentleman who came into the hospital with right lower quadrant abdominal pain. Pain was radiating into his umbilicus. Patient has a history of hepatocellular carcinoma with hepatitis. Patient has been following up in [place], [place], where his outpatient treatment have been occurring with oncology. Pt came into the emergency roomAs he was having severe right lower quadrant pain. He recently moved back to [place], [place]. He is getting his care transferred to [facility]. At this time, the worse the room spoke with surgery and they wanted to admit the patient for evaluation for possible laparoscopic appendectomy. Allergies No Known Allergies Allergy (Verified 02/28/20 05:45) Home Medications: Pantoprazole [Protonix Tab] 40 mg PO BID 02/28/20 Propranolol HCl 20 mg PO BID 02/28/20 Sofosbuvir/Velpatasvir [Epclusa 400 mg-100 mg Tablet] 1 each PO DAILY 02/28/20 Sorafenib Tosylate [Nexavar] 2 tab PO BID 02/28/20 hydrOXYzine HCL [Atarax] 25 mg PO QID PRN 02/28/20 - Past Medical/Surgical History Has patient received pneumonia vaccine in the past: No Diabetic: No -: hepatitis B and C -: Liver cancer -: liver cirrhosis -: neck surgery -: EGD - Family History Father Family History: Reviewed- Non-Contributory - Social History Smoking Status: Never smoker Alcohol use: No CD- Drugs: No Caffeine use: Yes Place of Residence: Home Review of Systems 10-point ROS is otherwise unremarkable Physical Examination - Vital Signs Temperature: 97.2 F Blood Pressure: 115/69 Pulse: 73 Respirations: 16 Pulse Ox (%): 98 - Physical Exam General: Alert, In no apparent distress, Oriented x3 HEENT: Atraumatic, PERRLA, Mucous membr. moist/pink, EOMI, Sclerae nonicteric Neck: Supple, 2+ carotid pulse no bruit, No LAD, Without JVD or thyroid abnormality Respiratory: Clear to auscultation bilaterally, Normal air movement Cardiovascular: Regular rate/rhythm, Normal S1 S2, No murmurs Gastrointestinal: Normal bowel sounds, Soft and benign, Non-distended, No tenderness Musculoskeletal: No clubbing, No swelling, No tenderness Integumentary: No rashes Neurological: Normal gait, Normal speech, Normal strength at 5/5 x4 extr, Normal tone, Sensation intact, Cranial nerves 3-12 intact, Normal affect Lymphatics: No axilla or inguinal lymphadenopathy - Studies Laboratory Data (last 24 hrs) 02/28/20 00:30: PT 14.7 H, INR 1.25 02/28/20 00:30: WBC 3.3 L, Hgb 13.1 L, Hct 38.7 L, Plt Count 58 L 02/28/20 00:30: Sodium 142, Potassium 3.5, BUN 14, Creatinine 0.85, Glucose 107 H, Magnesium 1.8, Total Bilirubin 1.1 H, AST 148 H, ALT 125 H, Alkaline Phosphatase 220 H, Lipase 325 02/28/20 00:29: Lipase Cancelled Assessment & Plan - Problems (Diagnosis) (1) Acute appendicitis Current Visit: Yes Status: Acute Qualifiers: Appendicitis gangrene presence: without gangrene Appendicitis perforation presence: without perforation Appendicitis abscess presence: unspecified whether abscess present (2) Hepatocellular carcinoma Current Visit: Yes Status: Acute (3) History of hepatitis Current Visit: Yes Status: Acute - Plan PLAN: -aggressive IV hydration -IV antibiotics -pain controlled -monitor for possible perforation -surgery consultation -CT abdomen pelvis pending Discharge Plan: Home Plan to discharge in: Greater than 2 days - Advance Directives Does patient have a Living Will: No Does patient have a Durable POA for Healthcare: No - Code Status/Comfort Care Code Status Assessed: Yes Code Status: Full Code Critical Care: No Time Spent Managing PTS Care (In Minutes): 45
--- NOTE | 2020-02-28 17:05 | P.DS ---
Admission Date: 02/28/20 Discharge Date: 02/28/20 Disposition: ROUTINE DISCHARGE Reason for Admission: Acute appendicitis - Problems (1) Acute appendicitis Current Visit: Yes Status: Acute Qualifiers: Appendicitis gangrene presence: without gangrene Appendicitis perforation presence: without perforation Appendicitis abscess presence: unspecified whether abscess present (2) History of hepatitis Current Visit: Yes Status: Acute Brief History of Present Illness: History of Present Illness: Patient is a 60-year-old gentleman who came into the hospital with right lower quadrant abdominal pain. Pain was radiating into his umbilicus. Patient has a history of hepatocellular carcinoma with hepatitis. Patient has been following up in [place], [place], where his outpatient treatment have been occurring with oncology. Pt came into the emergency roomAs he was having severe right lower quadrant pain. He recently moved back to [place], [place]. He is getting his care transferred to [facility]. At this time, the worse the room spoke with surgery and they wanted to admit the patient for evaluation for possible laparoscopic appendectomy. Allergies No Known Allergies Allergy (Verified 02/28/20 05:45) Home Medications: Pantoprazole [Protonix Tab] 40 mg PO BID 02/28/20 Propranolol HCl 20 mg PO BID 02/28/20 Sofosbuvir/Velpatasvir [Epclusa 400 mg-100 mg Tablet] 1 each PO DAILY 02/28/20 Sorafenib Tosylate [Nexavar] 2 tab PO BID 02/28/20 hydrOXYzine HCL [Atarax] 25 mg PO QID PRN 02/28/20 Hospital Course: Patient admitted for acute appendicitis, underwent lap appendectomy by Dr. chong. Tolerated procedure well with no immediate complication. He is tolerating p.o. now he will be discharged home with antibiotics for the next 3-5 days. Vital Signs/Physical Exam: Temp Pulse Resp BP Pulse Ox 97.2 F 73 18 115/69 95 02/28/20 13:42 02/28/20 13:42 02/28/20 15:44 02/28/20 13:42 02/28/20 15:44 General: In no apparent distress, Oriented x3 HEENT: Atraumatic, Normocephalic Neck: Supple, 2+ carotid pulse no bruit Respiratory: Clear to auscultation bilaterally, Normal air movement Musculoskeletal: No clubbing, No swelling Laboratory Data at Discharge: WBC 3.3 K/uL (4.3-10.9) L 02/28/20 00:30 Hgb 13.1 g/dL (13.6-17.9) L 02/28/20 00:30 Hct 38.7 % (39.6-49.0) L 02/28/20 00:30 Plt Count 58 K/uL (152-406) L 02/28/20 00:30 PT 14.7 SECONDS (9.5-12.5) H 02/28/20 00:30 INR 1.25 02/28/20 00:30 Sodium 142 mmol/L (136-145) 02/28/20 00:30 Potassium 3.5 mmol/L (3.5-5.1) 02/28/20 00:30 BUN 14 mg/dL (7-18) 02/28/20 00:30 Creatinine 0.85 mg/dL (0.55-1.3) 02/28/20 00:30 Glucose 107 mg/dL (74-106) H 02/28/20 00:30 Magnesium 1.8 mg/dL (1.8-2.4) 02/28/20 00:30 Total Bilirubin 1.1 mg/dL (0.2-1.0) H 02/28/20 00:30 AST 148 U/L (15-37) H 02/28/20 00:30 ALT 125 U/L (12-78) H 02/28/20 00:30 Alkaline Phosphatase 220 U/L (45-117) H 02/28/20 00:30 Lipase 325 U/L (73-393) 02/28/20 00:30 Home Medications: Levofloxacin [Levaquin] 250 mg PO BID #10 tablet 02/28/20 RX: Pantoprazole [Protonix Tab*] 40 mg PO BID 02/28/20 RX: Propranolol HCl 20 mg PO BID 02/28/20 RX: Sofosbuvir/Velpatasvir [Epclusa 400 mg-100 mg Tablet] 1 each PO DAILY 02/28/20 RX: Sorafenib Tosylate [Nexavar] 2 tab PO BID 02/28/20 RX: hydrOXYzine HCL [Atarax*] 25 mg PO QID PRN 02/28/20 metroNIDAZOLE [Flagyl] 500 mg PO BID #10 capsule 02/28/20 New Medications: metroNIDAZOLE [Flagyl] 500 mg PO BID #10 capsule Levofloxacin [Levaquin] 250 mg PO BID #10 tablet Diet: Regular Activity: Ad ciara Time spent managing pt's care (in minutes): 35
[2020-02-28 18:09] VITALS: BP 116/71; TEMP 97.6
== END 2020-02-28 18:03 | disposition home or self-care (01) | DRG 342 ==
LOC: ER 00:12 → ERHOLD 04:43 → 2ND 04:58
PROVIDERS: ADMIT Family Medicine; ATTEND Family Medicine
PROC: 0DTJ4ZZ Resection of Appendix, Percutaneous Endoscopic Approach (ICD-10-PCS; principal; 2020-02-28 10:30)
DX: K35.80 Unspecified acute appendicitis (principal); C22.7 Other specified carcinomas of liver; B19.20 Unspecified viral hepatitis C without hepatic coma; Z85.05 Personal history of malignant neoplasm of liver; Z79.899 Other long term (current) drug therapy
CPT/HCPCS: 36415; 71045; 74177; 80048; 80076; 81003; 83605; 83690; 83735; 83880; 84484; 85025; 85610; 88304; 93005; 96365; 96375; 99285; J1100; J2250; J2270; J2405; J2543; J2704; J2710; J3010; J7030; Q9967

== ENCOUNTER 2021-01-29 08:51 | Emergency (ER) | payer SELFPAY ==
--- OUTSIDE RECORDS SUMMARY | 2021-01-29 08:53 | XMS REPORT | Continuity of Care Document ---
:1960 Author Organization [facility] t Address [address] [place] [address] Care Team Providers Name Role Phone Monica Severino LMSW Attending Clinician Unavailable Doctor Unassigned, Name Attending Clinician Unavailable Care, Primary Attending Clinician Unavailable Jama Dang Attending Clinician Problems This patient has no known problems. Allergies, Adverse Reactions, Alerts This patient has no known allergies or adverse reactions. Medications This patient has no known medications. Procedures This patient has no known procedures. Encounters Start End Encounter Admission Attending Care Care Encounter Source Date/Time Date/Time Type Type Clinicians Facility Department ID 2020-03-02 2020-03-02 Patient TIFFANIE Severino [id number] 00:00:00 00:00:00 Outreach Trent Mccann [id number] [facility] [id number] 2019-05-27 2019-05-27 Orders Doctor MADELEINE [id number] 00:00:00 00:00:00 Only Unassigned, DENNIS [id number] [place] [facility] [id number] 2019-04-29 2019-05-05 Office Care, Mc HERNANDEZ 1.2.840.114 [id number] 14:02:18 10:27:35 Visit [facility] [id number] [facility] [id number] UNIT [id number] 2019-05-05 2019-05-05 Telephone Effie Anthony [id number] 00:00:00 00:00:00 [facility] [id number] [facility] [phone] [id number] 2019-04-29 2019-04-29 Orders Doctor MADELEINE [id number] 00:00:00 00:00:00 Only UnassignedDENNIS [id number]2.7.2.686 [id number] 2019-04-23 2019-04-23 Orders Doctor MADELEINE [id number] 00:00:00 00:00:00 Only UnassignedDENNIS [id number] [phone] [id number] Results This patient has no known results.
[2021-01-29 10:55] LABS: Absolute Lymphocytes (CBC) 0.7 K/uL (0.7-4.9); Basophils % 0.7 % (0-1.3); Hematocrit 37.5 % (39.6-49.0); Lymphocytes % 22.7 % (15.3-44.8); MPV 10.7 fL (7.6-11.3); RBC Red Blood Cell Count 4.03 M/uL (4.33-5.43)
[2021-01-29 11:12] LABS: Protime INR 1.1
[2021-01-29 11:29] LABS: Urine Blood 1+ (Negative); Urine Glucose Negative (Negative); Urine Protein Negative (Negative); Urine pH 6.5 (5.0-7.0)
[2021-01-29 11:36] LABS: ALT/SGPT 152 U/L (12-78); AST/SGOT 178 U/L (15-37); Albumin 2.6 g/dL (3.4-5.0); Alkaline Phosphatase 200 U/L (45-117); BUN Blood Urea Nitrogen 16 mg/dL (7-18); Bicarbonate 24 mmol/L (21-32); Bilirubin Direct 0.8 mg/dL (0-0.2); Bilirubin Total 1.7 mg/dL (0.2-1.0); Glucose Level 100 mg/dL (74-106); Potassium 3.4 mmol/L (3.5-5.1); Protein, Total 7.5 g/dL (6.4-8.2); Sodium Level 142 mmol/L (136-145)
--- NOTE | 2021-01-29 11:46 | ER ---
Nurse's Notes [facility] Name: Jas Styles Age: 61 yrs Sex: Male : 1960 Arrival Date: 01/29/2021 Time: 08:54 Bed 28 Private MD: Diagnosis: Urinary tract infection, site not specified;Hematuria, unspecified Presentation: 01/29 08:59 Chief complaint: Patient states: "I have been fighting liver cancer for the last 2 jd3 years. and here recently I have been seeing a lot more blood in my urine.". Coronavirus screen: At this time, the client does not indicate any symptoms associated with coronavirus-19. Ebola Screen: Patient negative for fever greater than or equal to 101.5 degrees Fahrenheit, and additional compatible Ebola Virus Disease symptoms. Initial Sepsis Screen: Does the patient meet any 2 criteria? No. Patient's initial sepsis screen is negative. Does the patient have a suspected source of infection? No. Patient's initial sepsis screen is negative. Risk Assessment: Do you want to hurt yourself or someone else? Patient reports no desire to harm self or others. Onset of symptoms was January 14, 2021. 08:59 Method Of Arrival: Ambulatory jd3 08:59 Acuity: SADE 3 jd3 09:01 Note recently stopped cancer and medication treatments. jd3 Historical: - Allergies: 09:01 No Known Allergies; jd3 - Home Meds: 09:01 None [Active]; jd3 - PMHx: 09:01 hepatitis B and C; LIVER CA; Liver cirrhosis; jd3 - PSHx: 09:01 None; jd3 - Immunization history:: Adult Immunizations up to date. - Social history:: Smoking status: Patient reports the use of cigarette tobacco products, denies chronic smoking, but will smoke occasionally. Screenin:32 Abuse screen: Denies threats or abuse. Denies injuries from another. Nutritional ca1 screening: No deficits noted. Tuberculosis screening: No symptoms or risk factors identified. Fall Risk IV access (20 points). Assessment: 10:32 Reassessment: Pt was from his car. Walked pt to his room. General: Appears in no ca1 apparent distress. comfortable, Behavior is calm, cooperative, appropriate for age. Pain: Denies pain. Neuro: Level of Consciousness is awake, alert, obeys commands, Oriented to person, place, time, situation. : Reports bloody urine. 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 Bloody urine been worse for 3 - 4 weeks. Derm: Skin is intact, is healthy with good turgor, Skin is normal. Musculoskeletal: Circulation, motion, and sensation intact. Capillary refill < 3 seconds. 11:30 Reassessment: Patient appears in no apparent distress at this time. Patient is alert, ca1 oriented x 3, equal unlabored respirations, skin warm/dry/pink. 11:30 Reassessment:. ca1 11:47 Reassessment: Patient was trying to go outside to get food. I explained that he can not kg leave and come back in because he has an IV. He stated that he just wanted to leave then. I informed the provider who talked to him and tried to tell him he has a UTI and needs antibiotics. Pt refused and stated that he just wanted to leave. I removed his IV. Pt refused to sign AMA paper and left. . Vital Signs: 09:01 BP 118 / 71; Pulse 79; Resp 17 S; Temp 98.0(TE); Pulse Ox 100% on R/A; Weight 83.91 kg jd3 (R); Height 5 ft. 10 in. (177.80 cm) (R); Pain 0/10; 10:35 BP 118 / 78; Pulse 76; Resp 16 S; Pulse Ox 97% ; ca1 09:01 Body Mass Index 26.54 (83.91 kg, 177.80 cm) jd3 ED Course: 08:54 Patient arrived in ED. am2 09:00 Triage completed. jd3 09:02 Arm band placed on. jd3 09:44 Robert Fulton, LORI is PHCP. pm1 09:44 Isaac Avlaos MD is Attending Physician. pm1 09:56 Tere Lou, ASHELY is Primary Nurse. ca1 10:32 Patient has correct armband on for positive identification. Bed in low position. Call ca1 light in reach. Side rails up X 1. Pulse ox on. NIBP on. Warm blanket given. 10:49 Initial lab(s) drawn, by me, sent to lab. Inserted saline lock: 20 gauge in left ca1 antecubital area, using aseptic technique. Blood collected. 11:49 IV discontinued, intact, bleeding controlled, No redness/swelling at site. Pressure kg dressing applied. Administered Medications: No medications were administered Outcome: 11:49 Patient left the ED. kg Addendum: 02/01/2021 08:53 Addendum: Culture Results: Positive urine culture. Patient was not prescribed s v antibiotics at discharge. Report given to ALEXANDER for further evaluation and then to regional production manager for follow up with patient. Phone call Attempt #1 left voicemail. Signatures: Fanny Amaya RN RN Robert Babb NP ASSISTANT MEDIA BUYER pm1 Destinee Chew am2 Terrence Bates RN RN jd3 Tere Lou RN RN ca1 Lilian Hermosillo kg Corrections: (The following items were deleted from the chart) 01/29 09:03 09:01 Pulse 79bpm; Resp 17bpm; Spontaneous; Pulse Ox 100% RA; Temp 98.0F Temporal; jd3 83.91 kg Reported; Height 5 ft. 10 in. Reported; BMI: 26.5; Pain 0/10; jd3
--- NOTE | 2021-01-29 11:46 | EDPHYS ---
Physician Documentation [facility] Name: Jas Styles Age: 61 yrs Sex: Male : 1960 Arrival Date: 01/29/2021 Time: 08:54 Bed 28 Private MD: ED Physician Isaac Avalos HPI: 01/29 10:35 This 61 yrs old Male presents to ER via Ambulatory with complaints of blood in pm1 urine. 10:35 The patient presents with urinary symptoms, Hematuria. Onset: The symptoms/episode pm1 began/occurred Present since diagnosis of liver cancer diagnosis 2 years ago. Reports worse the past few days. Modifying factors: The symptoms are alleviated by nothing, the symptoms are aggravated by nothing. Associated signs and symptoms: Pertinent negatives: abdominal pain, constipation, diarrhea, fever, nausea, vomiting, burning with urination. Severity of symptoms: in the emergency department the symptoms are actually worse. The patient has not recently seen a physician, Patient has not been getting any treatment for his cancer since diagnosis 2 years ago. He reports anxiety about going for treatment due to his drug abuse and addiction. Patient is abusing cocaine and reports last using it last night. Historical: - Allergies: 09:01 No Known Allergies; jd3 - Home Meds: 09:01 None [Active]; jd3 - PMHx: 09:01 hepatitis B and C; LIVER CA; Liver cirrhosis; jd3 - PSHx: 09:01 None; jd3 - Immunization history:: Adult Immunizations up to date. - Social history:: Smoking status: Patient reports the use of cigarette tobacco products, denies chronic smoking, but will smoke occasionally. ROS: 10:35 Constitutional: Negative for fever, chills, and weight loss, Eyes: Negative for injury, pm1 pain, redness, and discharge, ENT: Negative for injury, pain, and discharge, Neck: Negative for injury, pain, and swelling, Cardiovascular: Negative for chest pain, palpitations, and edema, Respiratory: Negative for shortness of breath, cough, wheezing, and pleuritic chest pain, Abdomen/GI: Negative for abdominal pain, nausea, vomiting, diarrhea, and constipation, Back: Negative for injury and pain. 10:35 MS/Extremity: Negative for injury and deformity, Skin: Negative for injury, rash, and discoloration. 10:35 Neuro: Negative for headache, weakness, numbness, tingling, and seizure. 10:35 : Positive for hematuria, Negative for flank pain. Exam: 10:35 Constitutional: This is a well developed, well nourished patient who is awake, alert, pm1 and in no acute distress. Head/Face: Normocephalic, atraumatic. Eyes: Pupils equal round and reactive to light, extra-ocular motions intact. Lids and lashes normal. Conjunctiva and sclera are non-icteric and not injected. Cornea within normal limits. Periorbital areas with no swelling, redness, or edema. 10:35 Back: No spinal tenderness. No costovertebral tenderness. Full range of motion. Skin: Warm, dry with normal turgor. Normal color with no rashes, no lesions, and no evidence of cellulitis. MS/ Extremity: Pulses equal, no cyanosis. Neurovascular intact. Full, normal range of motion. 10:35 Cardiovascular: Rate: normal, Rhythm: regular, Pulses: no pulse deficits are appreciated, Edema: is not appreciated. 10:35 Respiratory: Exam negative for acute changes, respiratory distress, shortness of breath, Breath sounds: are clear throughout. 10:35 Abdomen/GI: Inspection: abdomen appears normal, Palpation: abdomen is soft and non-tender, in all quadrants. 10:35 Neuro: Orientation: is normal, Mentation: is normal, Motor: is normal, moves all fours, Sensation: is normal, no obvious gross deficits, Gait: is steady, at a normal pace, without difficulty. Vital Signs: 09:01 BP 118 / 71; Pulse 79; Resp 17 S; Temp 98.0(TE); Pulse Ox 100% on R/A; Weight 83.91 kg jd3 (R); Height 5 ft. 10 in. (177.80 cm) (R); Pain 0/10; 10:35 BP 118 / 78; Pulse 76; Resp 16 S; Pulse Ox 97% ; ca1 09:01 Body Mass Index 26.54 (83.91 kg, 177.80 cm) jd3 MDM: 09:57 Patient medically screened. pm1 10:26 ED course: Patient was not present in the room until now. Patient was outside the ER. pm1 11:29 Data reviewed: vital signs. Data interpreted: Pulse oximetry: on room air is 97 %. pm1 Interpretation: normal. 11:40 Counseling: I had a detailed discussion with the patient and/or guardian regarding: lab pm1 results, Patient wants to leave the ER now because he wants to get food. I informed the patient that he has a urinary tract infection and offered to give him antibiotic treatment and a prescription. The patient refused and wants to go home now. 11:40 Refusal of service: The patient/guardian displays adequate decision making capability pm1 and despite a detailed discussion of alternatives, benefits, risks, and consequences refuses: CT Scan, Medications, further treatment and evaluation in the hospital based on ER work up. He wants to get his food and eat now. 01/29 10:35 Order name: Urine Microscopic Only pm1 01/29 10:35 Order name: Basic Metabolic Panel; Complete Time: 11:39 pm1 01/29 10:35 Order name: CBC with Diff pm1 01/29 10:35 Order name: Hepatic Function; Complete Time: 11:39 pm1 01/29 10:35 Order name: PT-INR; Complete Time: 11:30 pm1 01/29 11:00 Order name: CBC Smear Scan EDMS 01/29 10:35 Order name: Urine Dipstick-Ancillary (obtain specimen); Complete Time: 11:28 pm1 01/29 10:35 Order name: IV Saline Lock; Complete Time: 10:49 pm1 01/29 10:35 Order name: Labs collected and sent; Complete Time: 10:49 pm1 01/29 11:29 Order name: Urine Dipstick-Ancillary; Complete Time: 11:30 EDMS Administered Medications: No medications were administered Disposition: 15:57 Co-signature as Attending Physician, Isaac Avalos MD. rn Disposition: 01/29/21 11:45 Patient has left against medical advice. Impression: Urinary tract infection, site not specified, Hematuria, unspecified. - Patients states they are going to Home. - Condition is Undetermined. - Discharge Instructions: Urinary Tract Infection, Adult. Follow up: Emergency Department; When: As needed; Reason: Worsening of condition. Follow up: Private Physician; When: Upon discharge from the Emergency Department; Reason: Recheck today's complaints, Continuance of care, Re-evaluation by your physician. - Problem is new. - Symptoms are unchanged. Signatures: Dispatcher [employer] EDIsaac Marshall MD MD rn Marinas, Robert, MEDICATION AID MEDICATION AID pm1 Terrence Bates, RN RN jd3 Lilian Hermosillo kg Corrections: (The following items were deleted from the chart) 11:46 11:45 01/29/2021 11:45 Patients has left against medical advice. Impression: Urinary pm1 tract infection, site not specified. Patient states they are going to Home. Condition is Undetermined. Follow up: Emergency Department; When: As needed; Reason: Worsening of condition. Follow up: Private Physician; When: Upon discharge from the Emergency Department; Reason: Recheck today's complaints, Continuance of care, Re-evaluation by your physician. Problem is new. Symptoms are unchanged. pm1 11:49 11:46 01/29/2021 11:45 Patients has left against medical advice. Impression: Urinary kg tract infection, site not specified; Hematuria, unspecified. Patient states they are going to Home. Condition is Undetermined. Follow up: Emergency Department; When: As needed; Reason: Worsening of condition. Follow up: Private Physician; When: Upon discharge from the Emergency Department; Reason: Recheck today's complaints, Continuance of care, Re-evaluation by your physician. Problem is new. Symptoms are unchanged. pm1
[2021-01-29 12:01] VITALS: TEMP 98
[2021-01-29 12:02] VITALS: BP 118/78; O2SAT 97
[2021-01-29 12:06] LABS: Urine Bacteria >50 /HPF (NONE SEEN); Urine RBC 20-50 /HPF (NONE SEEN)
[2021-01-29 12:59] LABS: Blood Morphology Comment NOT SEEN (NOT SEEN); Platelet Estimate DECR; White Blood Cell Scan OK (OK)
== END 2021-01-29 11:49 | disposition left against medical advice (07) ==
LOC: ER 08:51
DX: N39.0 Urinary tract infection, site not specified (principal); F17.210 Nicotine dependence, cigarettes, uncomplicated; Z85.05 Personal history of malignant neoplasm of liver
CPT/HCPCS: 36415; 80048; 80076; 81003; 81015; 85025; 85610; 87077; 87086; 87088; 87186; 99283

== ENCOUNTER 2021-02-07 21:51 | Emergency (ER) | payer SELFPAY ==
--- OUTSIDE RECORDS SUMMARY | 2021-02-07 21:54 | XMS REPORT | Continuity of Care Document ---
:1960 Author Organization [facility] t Address [address] [place] [address] Care Team Providers Name Role Phone Mark ONEAL Attending Clinician Monica Severino LMSW Attending Clinician Unavailable Doctor [...] Date/Time Type Type Clinicians Facility Department ID 2021-01-29 2021-01-29 Emergency [facility] 1.2.840.114 [id number] 12:56:00 16:04:00 Lilliana Steve [id number] [place] [id number] [place] [id number] 2020-03-02 2020-03-02 Patient Maycol TIFFANIE [id number] 00:00:00 00:00:00 Outreach Trent Mccann [id number] [facility] [id number] [id number] 2019-05-27 2019-05-27 Orders Doctor SALVADOR 1.2.840.114 [id number] 00:00:00 00:00:00 Only Unassigned, DENNIS [id number] [facility] [id number] 2019-04-29 2019-05-05 Office Care, Mc HERNANDEZ [id number] 14:02:18 10:27:35 Visit [facility] [id number] [facility] [id number] UNIT [id number] 2019-05-05 2019-05-05 Telephone Effie Anthony [id number] 00:00:00 00:00:00 [facility] [id number] [facility]ALTH [id number] UNIT [id number] 2019-04-29 2019-04-29 Orders Doctor MADELEINE [id number] 00:00:00 00:00:00 Only Unassigned, DENNIS [id number] [facility] [id number] 2019-04-23 2019-04-23 Orders Doctor MADELEINE [id number] 00:00:00 00:00:00 Only Unassigned, DENNIS [id number] [facility] [id number] Results This patient has no known results.
--- NOTE | 2021-02-07 23:30 | ER ---
Nurse's Notes [facility] Name: Jas Styles Age: 61 yrs Sex: Male : 1960 Arrival Date: 02/07/2021 Time: 21:57 Bed Waiting Private MD: Diagnosis: Presentation: 02/07 22:26 Chief complaint: Patient states: has been having abd pains all day long , RUQ pain, has iw hx of liver cancer, untreated for over year, had chemo but there were a lot of side effects he didn't like. Coronavirus screen: At this time, the client does not indicate any symptoms associated with coronavirus-19. Ebola Screen: Patient negative for fever greater than or equal to 101.5 degrees Fahrenheit, and additional compatible Ebola Virus Disease symptoms Patient denies exposure to infectious person. Patient denies travel to an Ebola-affected area in the 21 days before illness onset. No symptoms or risks identified at this time. Initial Sepsis Screen: Does the patient meet any 2 criteria? No. Patient's initial sepsis screen is negative. Does the patient have a suspected source of infection? No. Patient's initial sepsis screen is negative. Risk Assessment: Do you want to hurt yourself or someone else? Patient reports no desire to harm self or others. Onset of symptoms was February 07, 2021. 22:26 Method Of Arrival: Ambulatory iw 22:26 Acuity: SADE 3 iw Historical: - Allergies: 22:31 No Known Allergies; iw - Home Meds: 22:31 None [Active]; iw - PMHx: 22:31 LIVER CA; hepatitis B and C; Liver cirrhosis; iw - PSHx: 22:31 upper spine infection; iw - Immunization history:: Adult Immunizations not up to date, Client reports having NOT received the Covid vaccine. - Social history:: Smoking status: Patient reports the use of cigarette tobacco products, denies chronic smoking, but will smoke occasionally, Patient uses alcohol, on a daily basis. street drugs, cocaine. Assessment: 23:07 Reassessment: pt not in lobby when called. iw Vital Signs: 22:26 BP 138 / 82; Pulse 81; Resp 16; Pulse Ox 100% on R/A; Weight 75.75 kg; Height 5 ft. 10 iw in. (177.80 cm); Pain 8/10; 22:26 Body Mass Index 23.96 (75.75 kg, 177.80 cm) iw ED Course: 21:57 Patient arrived in ED. bp1 22:30 Triage completed. iw 22:31 Arm band placed on. iw Administered Medications: No medications were administered Outcome: 23:30 Patient left the ED. iw Signatures: Madison Vora RN RN iw Huong Jones bp1
[2021-02-07 23:44] VITALS: BP 138/82; O2SAT 100
== END 2021-02-07 23:30 | disposition left against medical advice (07) ==
LOC: ER 21:51
DX: Z02.9 Encounter for administrative examinations, unspecified (principal)
CPT/HCPCS: 99281

== ENCOUNTER 2022-11-02 09:20 | Emergency (ER) | payer SELFPAY ==
--- OUTSIDE RECORDS SUMMARY | 2022-11-02 09:27 | XMS REPORT | Continuity of Care Document ---
:1960 Author Organization [facility] t Address [address] [place] [address] Care Team Providers Name Role Phone Effie Dang Primary Care Physician NICOLE SANTO RP Attending Clinician Unavailable Nicole Santo MD, Rp Attending Clinician 2, [facility] Infusion Chair Attending Clinician Unavailable [facility] Attending Clinician Unavailable Susu Greenberg NP Attending Clinician Doctor Unassigned, [place] Attending Clinician Unavailable SUSU GREENBERG Attending Clinician Unavailable Trent Severino LMSW Attending Clinician Unavailable Lilliana Tyler Attending Clinician Care, [facility] Primary Attending Clinician Unavailable Effie Dang E Attending Clinician SUSU GREENBERG Admitting Clinician Unavailable Payers Payer Name Policy Type Policy Number Effective Date Expiration Date Gary finn [facility] [id number] 2019 CARE 00:00:00 [facility] 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 Hepatitis Hepatitis Disease Active 2008-09 Uni vers C C 10-02 ity of 00:00: [place] 00 Medical Branch Back pain Back pain Disease Active 2008-09 Uni vers 10-02 ity of 00:00: [place] [address] [facility] Allergies, Adverse Reactions, Alerts Allergy Allergy Status Severity Reaction(s) Onset Inactive Treating Comm ents Source Name Type Date Date Clinician NO KNOWN Drug Active Univers ALLERGIE Class ity of S [facility] Social History Social Habit Start Date Stop Date Quantity Comments Source History of Current smoker [place] of tobacco use [facility] Exposure to 2022-10-08 2022-10-18 Not sure [facility] SARS-CoV-2 00:00:00 08:32:00 [facility] (event) [place] Alcohol intake 2021-06-29 2021-06-29 Current drinker Unive rsity of 00:00:00 00:00:00 of alcohol [facility] (finding) [place] Sex Ass[birth year] At [birth year] Universit y of 00:00:00 00:00:00 [facility] Smoking Status Start Date Stop Date Source Ex-smoker 2021-06-29 00:00:00 2021-06-29 00:00:00 [facility] Medications Ordered Filled Start Stop Current Ordering Indication Dosage Frequency Signature Comments Components Source Medication Medication Date Date Medication? Clinician (SIG) Name Name bevacizumab 2022- No [id number] 15mg/kg 1,200 mg [facility] -bvzr 10-18 (rounded ity of (ZIRABEV) 20:45: 22:00 from [place] 1,200 mg in 00 :00 1,204.5 mg Me dical NaCl 0.9% = 15 mg/kg Bran ch (NS) 100 mL ?80.3 kg infusion Order-spec [facility] weight), IV Infusion, ONCE, Administer over 90 Minutes, On Fri10/18/22 at 1445, For 1 dose
Sh ould be diluted in 0.9% Sodium Chloride, not D5W. May store diluted solution in refrigerat or for up to 8 hours.&nbs p;Infuse 1st infusion for 90 minutes; 2nd infusion for 60 minutes; subsequent infusions for 30 minutes if well tolerated.
atezolizuma 2022- No [id number] 1200mg 1,200 mg, Univers b 10-18 IV ity of (TECENTRIQ) 19:30: 20:29 Infusion, [place] 1,200 mg in 00 :00 ONCE, Medical NaCl 0.9% Administer Bran ch (NS) 250 mL over 60 infusion Minutes, On Fri10/18/22 at 1330, For 1 dose
In fuse the initial dose over 60 minutes, if tolerated, may infuse subsequent doses over 30 minutes.&a mp;nbsp;&n bsp; Atezolizum ab should be infused first.&nbs p; Af ter completion of infusion, wait at least 5 minutes prior to bevacizuma b infusion.< br> atropine 2022- Yes [id number] .25mg 0.25 mg, Univers injection 10-18 IV Push, ity o f 0.25 mg 19:16: 19:15 PRN, [place] 37 :37 Starting Medical on Fri Branch 10/18/22 at 1316, Until 10/19/22 at 1315, Routine, Stomach cramping, acute flushing. albuterol 2022- Yes [id number] 2.5mg 2.5 mg, Univers (PROVENTIL) 10-18 Inhalation i ty of 2.5 mg /3 19:16: 19:15 , PRN - [place] mL (0.083 37 :37 SEE Medical %) INSTRUCTIO Branch nebulizer NS, solution Starting 2.5 mg on Fri10/18/22 at 1316, Until 10/19/22 at 1315, Routine, Shortness of Breath, Wheezing, As needed for chemothera py reactions methylpredn 2022- Yes [id number] 125mg 125 mg, Univers isolone sod 10-18 Slow IV ity of succ 19:16: 19:15 Push, [place] (SOLU-MEDRO 37 :37 Administer Me dical L) over 3 Branch injection Minutes, 125 mg PRN - SEE INSTRUCTIO NS, Starting on 10/18/22 at 1316, Until 10/19/22 at 1315, Routine, As needed for chemothera py reactions EPINEPHrine 2022- Yes [id number] .3mg 0.3 mg, Univers (EPIPEN 10-18 Intramuscu ity o f AUTO-INJECT 19:16: 19:15 lar, PRN - [place] OR) 0.3 37 :37 SEE Medical mg/0.3 mL INSTRUCTIO Bran ch injection NS, 0.3 mg Starting on 10/18/22 at 1316, Until 10/19/22 at 1315, Routine, As needed for chemothera py reactions diphenhydrA 2022- Yes [id number] 50mg 50 mg, Univers MINE 10-18 Slow IV ity of (BENADRYL) 19:16: 19:15 Push, [place] injection 37 :37 Administer Medi sharon 50 mg over 2 Branch Minutes, PRN - SEE INSTRUCTIO NS, Starting on 10/18/22 at 1316, Until 10/19/22 at 1315, Routine, As needed for chemothera py reactions< br>INDICAT ION: ANAPHYLAXI S heparin 2022- Yes [id number] 500U 500 Units, Univers lock flush 10-18 IV Push, ity of (HEPARIN 19:16: 19:15 PRN, [place] LOCKFLUSH(P 37 :37 Starting Medi shaorn ORCINE)(PF) on Fri Branch ) 100 10/18/22 at unit/mL 1316, injection Until Sat 500 Units 10/19/22 at 1315, Routine FENTanyl PF 2022- No Slow IV Un john paul (SUBLIMAZE 10-10 Push, PRN, it y of (PF)) 16:28: 16:28 Starting [place] injection 49 :49 on [place] [facility] 10/10/22 at Branch 1028, Until Discontinu ed, Routine FENTanyl PF 2022- No Slow IV Un john paul (SUBLIMAZE 10-10 Push, PRN, it y of (PF)) 16:28: 16:28 Starting [place] injection 49 :49 on [facility] 10/10/22 at Branch 1028, Until Discontinu ed, Routine midazolam 2022- No IV Push, Uni vers (VERSED) 10-10 PRN, ity of injection 16:28: 16:28 Starting [place] as 42 :42 on [facility] 10/10/22 at Branch 1028, Until Discontinu ed, Routine midazolam 2022- No IV Push, Uni vers (VERSED) 10-10 PRN, ity of injection 16:28: 16:28 Starting [place]ailesh as 42 :42 on [facility] 10/10/22 at Branch 1028, Until Discontinu ed, Routine ceFAZolin 2022- No Slow IV Univ ers (ANCEF) 10-10 Push, PRN, ity o f injection 16:15: 16:15 Starting [place]ailesh as 13 :13 on [facility] 10/10/22 at Branch 1015, Until Discontinu ed, CHRIS ceFAZolin 2022- No Slow IV Univ ers (ANCEF) 10-10 Push, PRN, ity o f injection 16:15: 16:15 Starting Shailesh as 13 :13 on [facility] 10/10/22 at Branch 1015, Until Discontinu ed, CHRIS IBUPROFEN 2021-09 Yes 1{tbl} Take 1 Univ ers ORAL 2-16 tablet by ity of 10:43: mouth 2 [place] [address] ([facility]) [facility] times [place] daily as needed. omeprazole 2021-09 Yes 10mg Take 10 mg U nivers 10 mg 2-16 by mouth ity of capsule 10:43: daily. [address] IBUPROFEN 2021-09 Yes 1{tbl} Take 1 Univ ers ORAL 2-16 tablet by ity of 10:43: mouth 2 [place] [address] ([facility]) Medical times [place] daily as needed. omeprazole 2021-09 Yes 10mg Take 10 mg U nivers 10 mg 2-16 by mouth ity of capsule 10:43: daily. [address] IBUPROFEN 2021-09 Yes 1{tbl} Take 1 Univ ers ORAL 2-16 tablet by ity of 10:43: mouth 2 [place] [address] ([facility]) Medical times [place] daily as needed. omeprazole 2021-09 Yes 10mg Take 10 mg U nivers 10 mg 2-16 by mouth ity of capsule 10:43: daily. [address] IBUPROFEN 2021-09 Yes 1{tbl} Take 1 Univ ers ORAL 2-16 tablet by ity of 10:43: mouth 2 [place] [address] (two) Medical times Branch daily as needed. omeprazole 2021-09 Yes 10mg Take 10 mg U nivers 10 mg 2-16 by mouth ity of capsule 10:43: daily. [address] IBUPROFEN 2021-09 Yes 1{tbl} Take 1 Univ ers ORAL 2-16 tablet by ity of 10:43: mouth 2 [place] [address] (two) Medical times [place] daily as needed. omeprazole 2021-09 Yes 10mg Take 10 mg U nivers 10 mg 2-16 by mouth ity of capsule 10:43: daily. [address] IBUPROFEN 2021-09 Yes 1{tbl} Take 1 Univ ers ORAL 2-16 tablet by ity of 10:43: mouth 2 [place] [address] ([facility]) Medical times [place] daily as needed. omeprazole 2021-09 Yes 10mg Take 10 mg U nivers 10 mg 2-16 by mouth ity of capsule 10:43: daily. [address] IBUPROFEN 2021-09 Yes 1{tbl} Take 1 Univ ers ORAL 2-16 tablet by ity of 10:43: mouth 2 [place] [address] ([facility]) Medical times [place] daily as needed. omeprazole 2021-09 Yes 10mg Take 10 mg U nivers 10 mg 2-16 by mouth ity of capsule 10:43: daily. [address] IBUPROFEN 2021-09 Yes 1{tbl} Take 1 Univ ers ORAL 2-16 tablet by ity of 10:43: mouth 2 [place] [address] (two) Medical times [place] daily as needed. omeprazole 2021-09 Yes 10mg Take 10 mg U nivers 10 mg 2-16 by mouth ity of capsule 10:43: daily. [address] IBUPROFEN 2021-09 Yes 1{tbl} Take 1 Univ ers ORAL 2-16 tablet by ity of 10:43: mouth 2 [place] [address] (two) Medical times Branch daily as needed. omeprazole 2021-09 Yes 10mg Take 10 mg U nivers 10 mg 2-16 by mouth ity of capsule 10:43: daily. [address] IBUPROFEN 2021-09 Yes 1{tbl} Take 1 Univ ers ORAL 2-16 tablet by ity of 10:43: mouth 2 [place] [address] (two) Medical times Branch daily as needed. omeprazole 2021-09 Yes 10mg Take 10 mg U nivers 10 mg 2-16 by mouth ity of capsule 10:43: daily. [address] IBUPROFEN 2021-09 Yes 1{tbl} Take 1 Univ ers ORAL 2-16 tablet by ity of 10:43: mouth 2 [place] [address] (two) Medical times Branch daily as needed. omeprazole 2021-09 Yes 10mg Take 10 mg U nivers 10 mg 2-16 by mouth ity of capsule 10:43: daily. [address] iopamidol 2022- No [id number] 80mL 80 mL, Univers (ISOVUE 05-31 Intravenou ity o f 370-500 mL) 13:33: 13:34 s, ONCE, 1 [place] injection 00 :00 dose, On Medica l 80 mL 05/31/22 Branch at 0845, Routine omeprazole 2020-09 Yes 10mg Take 10 mg U nivers 10 mg 0-08 by mouth ity of capsule 13:06: daily. [address] omeprazole 2020-09 Yes 10mg Take 10 mg U nivers 10 mg 0-08 by mouth ity of capsule 13:06: daily. [address] omeprazole 2020-09 Yes 10mg Take 10 mg U nivers 10 mg 0-08 by mouth ity of capsule 13:06: daily. [address] omeprazole 2020-09 Yes 10mg Take 10 mg U nivers 10 mg 0-08 by mouth ity of capsule 13:06: daily. [address] omeprazole 2020-09 Yes 10mg Take 10 mg U nivers 10 mg 0-08 by mouth ity of capsule 13:06: daily. [address] omeprazole 2020-09 Yes 10mg Take 10 mg U nivers 10 mg 0-08 by mouth ity of capsule 13:06: daily. [address] IBUPROFEN 2020-09 Yes 1{tbl} Take 1 Univ ers ORAL 0-08 tablet by ity of 13:00: mouth 2 [place] [address] (two) Medical times [place] daily as needed. IBUPROFEN 2020-09 Yes 1{tbl} Take 1 Univ ers ORAL 0-08 tablet by ity of 13:00: mouth 2 [place] [address] (two) Medical times [place] daily as needed. IBUPROFEN 2020-09 Yes 1{tbl} Take 1 Univ ers ORAL 0-08 tablet by ity of 13:00: mouth 2 [place] 22 (two) Medical times Branch daily as needed. IBUPROFEN 2020-09 Yes 1{tbl} Take 1 Univ ers ORAL 0-08 tablet by ity of 13:00: mouth 2 [place] 22 (two) Medical times Branch daily as needed. IBUPROFEN 2020-09 Yes 1{tbl} Take 1 Univ ers ORAL 0-08 tablet by ity of 13:00: mouth 2 [place] 22 (two) Medical times Branch daily as needed. IBUPROFEN 2020-09 Yes 1{tbl} Take 1 Univ ers ORAL 0-08 tablet by ity of 13:00: mouth 2 [place] 22 (two) Medical times Branch daily as needed. Immunizations Ordered Filled Immunization Date Status Comments [facility] e Immunization Name Name PPD (TB) 2009-08-28 Completed University of 00:00:00 [facility] PPD (TB) 2009-08-28 Completed University of 00:00:00 [facility] PPD (TB) 2009-08-28 Completed University of 00:00:00 [facility] PPD (TB) 2009-08-28 Completed University of 00:00:00 [facility] PPD (TB) 2009-08-28 Completed University of 00:00:00 [facility] PPD (TB) 2009-08-28 Completed University of 00:00:00 [facility] PPD (TB) 2009-08-28 Completed University of 00:00:00 [facility] PPD (TB) 2009-08-28 Completed University of 00:00:00 [facility] PPD (TB) 2009-08-28 Completed University of 00:00:00 [facility] PPD (TB) 2009-08-28 Completed University of 00:00:00 [facility] PPD (TB) 2009-08-28 Completed University of 00:00:00 [facility] PPD (TB) 2009-08-28 Completed University of 00:00:00 [facility] PPD (TB) 2009-08-28 Completed University of 00:00:00 [facility] PPD (TB) 2009-08-28 Completed University of 00:00:00 [facility] PPD (TB) 2009-08-28 Completed University of 00:00:00 [facility] PPD (TB) 2009-08-28 Completed University of 00:00:00 [facility] PPD (TB) 2009-08-28 Completed University of 00:00:00 [facility] Pneumococcal 2009-08-27 Completed University o f Polysaccharide, 00:00:00 [place] Med ical PPSV23 (PNEUMOVAX) Branch Pneumococcal 2009-08-27 Completed University o f Polysaccharide, 00:00:00 [place] Med ical PPSV23 (PNEUMOVAX) Branch Pneumococcal 2009-08-27 Completed University o f Polysaccharide, 00:00:00 [place] Med ical PPSV23 (PNEUMOVAX) Branch Pneumococcal 2009-08-27 Completed University o f Polysaccharide, 00:00:00 [place] Med ical PPSV23 (PNEUMOVAX) Branch Pneumococcal 2009-08-27 Completed University o f Polysaccharide, 00:00:00 [place] Med ical PPSV23 (PNEUMOVAX) Branch Pneumococcal 2009-08-27 Completed University o f Polysaccharide, 00:00:00 [place] Med ical PPSV23 (PNEUMOVAX) Branch Pneumococcal 2009-08-27 Completed University o f Polysaccharide, 00:00:00 [place] Med ical PPSV23 (PNEUMOVAX) Branch Pneumococcal 2009-08-27 Completed University o f Polysaccharide, 00:00:00 [place] Med ical PPSV23 (PNEUMOVAX) Branch Pneumococcal 2009-08-27 Completed University o f Polysaccharide, 00:00:00 [place] Med ical PPSV23 (PNEUMOVAX) Branch Pneumococcal 2009-08-27 Completed University o f Polysaccharide, 00:00:00 [place] Med ical PPSV23 (PNEUMOVAX) Branch Pneumococcal 2009-08-27 Completed University o f Polysaccharide, 00:00:00 [place] Med ical PPSV23 (PNEUMOVAX) Branch Pneumococcal 2009-08-27 Completed University o f Polysaccharide, 00:00:00 [place] Med ical PPSV23 (PNEUMOVAX) Branch Pneumococcal 2009-08-27 Completed University o f Polysaccharide, 00:00:00 [place] Med ical PPSV23 (PNEUMOVAX) Branch Pneumococcal 2009-08-27 Completed University o f Polysaccharide, 00:00:00 [place] Med ical PPSV23 (PNEUMOVAX) Branch Pneumococcal 2009-08-27 Completed University o f Polysaccharide, 00:00:00 [place] Med ical PPSV23 (PNEUMOVAX) Branch Pneumococcal 2009-08-27 Completed University o f Polysaccharide, 00:00:00 [place] Med ical PPSV23 (PNEUMOVAX) Branch Pneumococcal 2009-08-27 Completed University o f Polysaccharide, 00:00:00 [place] Med ical PPSV23 (PNEUMOVAX) Branch Influenza Virus 2009-08-02 Completed Universit y of Vaccine 00:00:00 [facility] Influenza Virus 2009-08-02 Completed Universit y of Vaccine 00:00:00 [facility] Influenza Virus 2009-08-02 Completed Universit y of Vaccine 00:00:00 [facility] Influenza Virus 2009-08-02 Completed Universit y of Vaccine 00:00:00 [facility] Influenza Virus 2009-08-02 Completed Universit y of Vaccine 00:00:00 [facility] Influenza Virus 2009-08-02 Completed Universit y of Vaccine 00:00:00 [facility] Influenza Virus 2009-08-02 Completed Universit y of Vaccine 00:00:00 [facility] Influenza Virus 2009-08-02 Completed Universit y of Vaccine 00:00:00 [facility] Influenza Virus 2009-08-02 Completed Universit y of Vaccine 00:00:00 [facility] Influenza Virus 2009-08-02 Completed Universit y of Vaccine 00:00:00 [facility] Influenza Virus 2009-08-02 Completed Universit y of Vaccine 00:00:00 [facility] Influenza Virus 2009-08-02 Completed Universit y of Vaccine 00:00:00 [facility] Influenza Virus 2009-08-02 Completed Universit y of Vaccine 00:00:00 [facility] Influenza Virus 2009-08-02 Completed Universit y of Vaccine 00:00:00 [facility] Influenza Virus 2009-08-02 Completed Universit y of Vaccine 00:00:00 [facility] Influenza Virus 2009-08-02 Completed Universit y of Vaccine 00:00:00 [facility] Influenza Virus 2009-08-02 Completed Universit y of Vaccine 00:00:00 [facility] Vital Signs Vital Name Observation Time Observation Value Comments Source Systolic blood 2022-10-18 132 mm[Hg] University of pressure 19:13:00 [facility] Diastolic blood 2022-10-18 89 mm[Hg] University o f pressure 19:13:00 [facility] Heart rate 2022-10-18 83 /min University of 19:13:00 [facility] Body temperature 2022-10-18 36.78 Liliane University of 19:13:00 [facility] Respiratory rate 2022-10-18 18 /min University of 19:13:00 [facility] Body height 2022-10-18 170.6 cm HGT and WGT University of 19:13:00 verified [facility] RN/MP Body weight 2022-10-18 82.9 kg HGT and WGT University of :13:00 verified [facility] RN/MP BMI 2022-10-18 28.48 kg/m2 University of 19:13:00 [facility] Oxygen saturation 2022-10-18 98 /min University of in Arterial blood 19:13:00 [facility] by Pulse oximetry Branch Systolic blood 2022-10-10 129 mm[Hg] University of pressure 17:05:00 [facility] Branch Diastolic blood 2022-10-10 76 mm[Hg] University o f pressure 17:05:00 [facility] Heart rate 2022-10-10 77 /min University of 17:05:00 [facility] Respiratory rate 2022-10-10 14 /min University of 17:05:00 [facility] Oxygen saturation 2022-10-10 100 /min University of in Arterial blood 17:05:00 [facility] by Pulse oximetry Branch Body temperature 2022-10-10 36.94 Liliane University of 15:07:00 [facility] Systolic blood 2022-09-06 119 mm[Hg] University of pressure 16:43:00 [facility] Branch Diastolic blood 2022-09-06 79 mm[Hg] University o f pressure 16:43:00 [facility] Heart rate 2022-09-06 73 /min University of 16:43:00 [facility] Body temperature 2022-09-06 35.83 Liliane University of 16:43:00 [facility] Respiratory rate 2022-09-06 18 /min University of 16:43:00 [facility] Body height 2022-09-06 177.8 cm University of 16:43:00 [facility] Oxygen saturation 2022-09-06 100 /min University of in Arterial blood 16:43:00 [facility] by Pulse oximetry Branch Systolic blood 2022-05-24 125 mm[Hg] University of pressure 15:05:00 [facility] Branch Diastolic blood 2022-05-24 86 mm[Hg] University o f pressure 15:05:00 [facility] Heart rate 2022-05-24 69 /min University of 15:05:00 [facility] Body temperature 2022-05-24 36.56 Liliane University of 15:05:00 [facility] Respiratory rate 2022-05-24 17 /min University 15:05:00 [facility] Body height 2022-05-24 177.8 cm University 15:05:00 [facility] Body weight 2022-05-24 80.468 kg [facility] 15:05:00 [facility] BMI 2022-05-24 25.45 kg/m2 University 15:05:00 [facility] Oxygen saturation 2022-05-24 97 /min [facility] in Arterial blood 15:05:00 [facility] by Pulse oximetry Branch Procedures Procedure Date / Time Performing Clinician Source Performed DISCLOSURE AND CONSENT, 2022-10-18 06:01:00 Doctor Unassigned, N o [facility] MEDICAL AND SURGICAL Name Medical [facility] PROCEDURES IR CENTRALLY INSERTED 2022-10-10 17:18:18 Yari Susu [facility] DEVICE TUNNELED CATHETER [facility] WITH PORT 5 OR OLDER BASIC METABOLIC PANEL 2022-10-10 15:30:00 [facility] (NA, K, CL, CO2, [facility] GLUCOSE, BUN, CREATININE, CA) CBC WITHOUT DIFF 2022-10-10 15:30:00 Josiah, [facility] PROTHROMBIN TIME / INR 2022-10-10 15:30:00 [facility] FERRITIN SERUM 2022-09-06 18:00[facility]00 [facility] 2022-09-06 18:00:00 Susu Greenberg [facility] CAPACITY [facility] COMP. METABOLIC PANEL 2022-09-06 18:00:00 Susu Greenberg [facility] ([id number]) [facility] ALPHA FETOPROTEIN 2022-09-06 18:00[facility] 2022-09-06 18:00:00 Susu Greenberg [facility] CT ABDOMEN PELVIS W WO 2022-05-31 13:44:33 Susu Greenberg [facility] CONTRAST [facility] CT THORAX W CONTRAST 2022-05-31 13:43:14 Susu Greenberg [facility] URINALYSIS 2022-05-24 16:34:00 Susu Greenberg [facility] LACTATE DEHYDROGENASE 2022-05-24 16:11:00 Susu Greenberg [facility] FERRITIN SERUM 2022-05-24 16:11:00 Yari [facility] VITAMIN B12, LEVEL 2022-05-24 16:11:00 Susu Greenberg [facility] FOLATE 2022-05-24 16:11:00 Yari [facility] TOTAL IRON BINDING 2022-05-24 16:11:00 Susu Greenberg [facility] COMP. METABOLIC PANEL 2022-05-24 16:11:00 Yari [facility] ([id number]) [facility] ALPHA FETOPROTEIN 2022-05-24 16:11:00 Yari [facility] CBC WITH DIFF 2022-05-24 16:11:00 Yari [facility] DISCLOSURE AND CONSENT, 2021-10-18 06:01:00 Doctor Unassigned, N o [facility] MEDICAL AND SURGICAL Name Medical Bra [facility] PROCEDURES Encounters Start End Encounter Admission Attending Care Care Encounter Source Date/Time Date/Time Type Type Clinicians Facility Department ID 2021-07-22 Emergency [facility] [id number] Univers 18:08:41 ity [facility] 2022-11-11 2022-11-11 Outpatient R NICOLE SANTO [facility] [id number] Univers 08:00:00 08:00:00 ity [facility] 2022-10-31 2022-10-31 Telephone Nicole Santo [id number] Univers 00:00:00 00:00:00 Rp H [id number] it y of BUILDING [id number] Shailesh as [id number] [facility] sharon 080 Branch 2022-10-18 2022-10-18 Nurse 2, [facility] Infusion Chair UNIVERSIT [id number] Univers 10:30:00 13:30:00 Visit Nicole Santo Rp Y HEALTH [id number] ity of CLINICS [id number] [place] [id number] [facility] sharon [address] 2022-10-18 2022-10-18 Outpatient R JIM NICOLE [facility] [id number] Univers 10:30:00 10:30:00 ity of [facility] 2022-10-18 2022-10-18 Therapeutic Sales Specialist [facility] UNIVERSIT 1.2.840.114 [id number] Univers 08:00:00 08:15:00 Visit Susu Greenberg Y HEALTH 350.1.13.10 ity of [place] [phone] [facility] [address] 2022-10-18 2022-10-18 Orders Doctor MADELEINE 1.2.840.114 [id number] Univers 00:00:00 00:00:00 Only Unassigned, DENNIS 350.1.13.10 ity of [place] [facility] 4.2.7.2.686 Shailesh as [phone] [facility] [address] 2022-10-10 2022-10-10 Outpatient R YARI SUSU [facility] [id number] Univers 08:36:29 23:59:00 ity of [facility] 2022-10-10 2022-10-10 Hospital Susu Greenberg UNIVERSIT 1.2.840.114 [id number] Univers 08:30:00 23:59:00 Encounter Y HEALTH 350.1.13.10 [place] [phone] [facility] [address] 2022-09-27 2022-09-27 Outpatient R JIM ARGENTINARosa [facility] [id number] Univers 08:00:00 08:00:00 ity of [facility] 2022-09-10 2022-09-10 Nichole Santo Argentinarosa MORENO 1.2.840.114 [id number] Univers 00:00:00 00:00:00 Rp H 350.1.13.10 it y of BUILDING 4.2.7.2.686 Shailesh as [id number] [facility] [address] [place] 2022-09-06 2022-09-06 Outpatient R JIM ARGENTINARosa [facility] [id number] Univers 10:20:00 12:04:10 ity of [facility] 2022-09-06 2022-09-06 Office Nicole Santo 1.2.840.114 [id number] Univers 10:20:00 12:04:10 Visit Rp H 350.1.13.10 it y of [facility] 4.2.7.2.686 Shailesh as [phone] [address] 2022-07-05 2022-07-05 Outpatient R JIM [facility] 1042 [id number] Univers 09:20:00 09:20:00 ity of [facility] 2022-06-18 2022-06-18 Patient Maycol TIFFANIE 1.2.840.114 [id number] Univers 00:00:00 00:00:00 Outreach Trent Anderson H 350.1.13.10 ity of [facility] 4.2.7.2.686 Shailesh as [id number] [address] 2022-05-31 2022-05-31 [facility] Greenberg [facility] 1.2.840.114 [id number] Univers 08:07:46 23:59:00 Encounter [place] 350.1.13.10 ity of [place] [id number] [address] 2022-05-31 2022-05-31 Outpatient R NORMA GREENBERGI [facility] [id number] Univers 08:07:32 08:06:00 ity of [facility] 2022-05-31 2022-05-31 [facility] Greenberg [facility] 1.2.840.114 [id number] Univers 08:00:00 08:06:00 Encounter [place] 350.1.13.10 ity of [place] [id number] [address] 2022-05-24 2022-05-24 Outpatient R JIM [facility] 1041 [id number] Univers 09:40:00 14:17:15 ity of [facility] 2022-05-24 2022-05-24 Office Nicole Santo 1.2.840.114 [id number] Univers 09:40:00 14:17:15 Visit Rp H 350.1.13.10 it y of BUILDING 4.2.7.2.686 Shailesh as [phone] [place] [address] [place] 2022-05-24 2022-05-24 Outpatient R JIM ARGENTINARosa [facility] 1041 [id number] Univers 09:40:00 09:40:00 ity of [facility] 2022-05-08 2022-05-08 Telephone [place] Santorosa MORENO 1.2.840.114 [id number] Univers 00:00:00 00:00:00 Rp H 350.1.13.10 it y of BUILDING 4.2.7.2.686 [place]esh as [id number] [place] [address] [place] 2021-10-18 2021-10-18 Orders Doctor MADELEINE 1.2.840.114 [id number] Univers 00:00:00 00:00:00 Only Unassigned, DENNIS 350.1.13.10 ity of [place] [address].2.7.2.686 Shailesh as [phone] [place] [address] [address] 2021-08-29 2021-08-29 Telephone [place] Santorosa MORENO 1.2.840.114 [id number] Univers 00:00:00 00:00:00 Rp H 350.1.13.10 it y of BUILDING 4.2.7.2.686 Shailesh as [id number] [address] 2021-08-24 2021-08-24 Telephone [place] Santorosa MORENO 1.2.840.114 [id number] Univers 00:00:00 00:00:00 Rp H 350.1.13.10 it y of [place]ILD[place] 4.2.7.2.686 Shailesh as [phone] [address] 2021-07-11 2021-07-11 Outpatient SUSU COX [facility] [id number] Univers 08:45:00 08:45:00 ity of [facility] 2021-07-11 2021-07-11 Outpatient SUSU COX [facility] 1035 [id number] Univers 00:00:00 00:00:00 ity of [facility] 2021-06-29 2021-06-29 Office Nicole Santo 1.2.840.114 [id number] Univers 12:28:09 14:16:39 Visit Rp H 350.1.13.10 it y of [facility] 4.2.7.2.686 Shailesh as [phone] [place] [address] [address] 2021-06-29 2021-06-29 Outpatient R NICOLE SANTO [facility] [id number] [id number] Univers 12:00:00 12:00:00 ity of [facility] 2021-06-29 2021-06-29 Orders Doctor MADELEINE 1.2.840.114 [id number] Univers 00:00:00 00:00:00 Only Unassigned, DENNIS 350.1.13.10 ity of [place] [facility] 4.2.7.2.686 Shailesh as [phone] [address] 2021-06-15 2021-06-15 Orders Doctor MADELEINE 1.2.840.114 [id number] Univers 00:00:00 00:00:00 Only Unassigned, DENNIS 350.1.13.10 ity of [place] [facility] 4.2.7.2.686 Shailesh as [id number] [address] 2021-05-16 2021-05-16 Orders Doctor MADELEINE 1.2.840.114 [id number] Univers 00:00:00 00:00:00 Only Unassigned, DENNIS 350.1.13.10 ity of [place] [facility] 4.2.7.2.686 Shailesh as [phone] [address] 2021-01-29 2021-01-29 Emergency [facility] 1.2.840.114 [id number] 12:56:00 16:04:00 Lilliana Steve 350.1.13.10 [place] 4.2.7.2.686 [place] [phone] [facility] 2021-01-29 2021-01-29 [facility] 1.2.840.114 [id number] Univers 12:56:00 16:04:00 Lilliana Steve 350.1.13.10 i ty of [place].2.[place] [facility] [id number] [place] [address] [place] 2020-03-02 2020-03-02 Patient TIFFANIE Severino 1.2.840.114 [id number] 00:00:00 00:00:00 Outreach Trent Anderson H 350.1.13.10 [facility] 4.2.7.2.686 [phone] [facility] 2020-03-02 2020-03-02 Patient TIFFANIE Severino 1.2.840.114 [id number] [facility] 00:00:00 00:00:00 Outreach Chermarilee Perezy H 350.1.13.10 ity of [facility] 4.2.7.2.686 Shailesh as [phone] [address] 2019-05-27 2019-05-27 Orders Doctor MADELEINE 1.2.840.114 [id number] 00:00:00 00:00:00 Only Unassigned, DENNIS 350.1.13.10 [place] [facility] 4.2.7.2.[id number] [facility] 2019-05-27 2019-05-27 Orders Doctor MADELEINE 1.2.840.114 [id number] [facility] 00:00:00 00:00:00 Only Unassigned, DENNIS 350.1.13.10 ity of [place] [facility] 4.2.7.2.686 Shailesh as [phone] [facility] [address] 2019-04-29 2019-05-05 Office Care, Ang BRAZORIA 1.2.840.114 [id number] 14:02:18 10:27:35 Visit [facility] 350.1.13.10 HEALTH 4.2.7.2.686 UNIT [id number] [facility] 2019-04-29 2019-05-05 Office Care, Ang Primary BRAZORIA 1.2.840 .114 [id number] [facility] 14:02:18 10:27:35 Visit Effie Anthony [facility] 350.1.13.10 ity of [place] [id number] [facility] [address] 2019-05-05 2019-05-05 Telephone Effie Anthony MARY 1.2.840.114 [id number] 00:00:00 00:00:00 E [facility] 350.1.13.10 HEALTH 4.2.7.2.686 UNIT [id number] 362 2019-05-05 2019-05-05 Telephone Effie Anthony 1.2.840.114 [id number] Univers 00:00:00 00:00:00 E [facility] 350.1.13.10 it y of [place] [id number] [address] 2019-04-29 2019-04-29 Orders Doctor MADELEINE 1.2.840.114 [id number] 00:00:00 00:00:00 Only Unassigned, DENNIS 350.1.13.10 [place] [facility] 4.2.7.2.686 [id number] 009 2019-04-29 2019-04-29 Orders Doctor MADELEINE 1.2.840.114 [id number] Univers 00:00:00 00:00:00 Only Unassigned, DENNIS 350.1.13.10 ity of [place] [facility]OS[facility] 4.2.7.2.686 Shailesh as [phone] [facility] [address] 2019-04-23 2019-04-23 Orders Doctor MADELEINE 1.2.840.114 [id number] 00:00:00 00:00:00 Only Unassigned, DENNIS 350.1.13.10 [place] [facility] 4.2.7.2.686 [id number] 009 2019-04-23 2019-04-23 Orders Doctor MADELEINE 1.2.840.114 [id number] Univers 00:00:00 00:00:00 Only Unassigned, DENNIS 350.1.13.10 ity of [place] [facility] 4.2.7.2.686 Shailesh as [phone] [address] Results Test Description Test Time Test Comments Results Result Comments Source ALPHA FETOPROTEIN 2022-09-06 19:50:01 Test Item Value Reference Range Interpretation Comme nts AFP (test code = 19.5 ng/mL See_Comment H [Automated message] The [id number]) system which ge nerated this result tra nsmitted reference range : <=7.5. The reference r daniele was not used to int erpret this result as sabi l/abnormal. ADALBERTO (test code = ADALBERTO) Biotin has been reported to cause a negative bias, interpret results relative to patient's use of biotin. Lab Interpretation (test Abnormal code = 72112-1) [facility] [id number] 19:50:01 Test Item Value Reference Range Interpretation Comments FERRITIN (test code = 62.1 ng/mL 18.0-464.0 5594819450) ADALBERTO (test code = ADALBERTO) Biotin has been reported to cause a negative bias, interpret results relative to patient's use of biotin. Lab Interpretation (test Normal code = 01954-2) [facility] [id number] 19:50:01 Test Item Value Reference Range Interpretation Comments AFP (test code = 19.5 ng/mL See_Comment H [Automated 2129213185) message] The system which generated this result transmitted reference range : <=7.5. The reference range was not used to interpret this result as normal/abnormal . ADALBERTO (test code = ADALBERTO) Biotin has been reported to cause a negative bias, interpret results relative to patient's use of biotin. Lab Interpretation Abnormal (test code = 94299-7) [facility] [id number] 19:50:01 Test Item Value Reference Range Interpretation Comments FERRITIN (test code = 62.1 ng/mL 18.0-464.0 2266219436) ADALBERTO (test code = ADALBERTO) Biotin has been reported to cause a negative bias, interpret results relative to patient's use of biotin. Lab Interpretation (test Normal code = 45298-8) [facility] [id number] 19:20:37 Test Item Value Reference Range Interpretation Comments TIBC (test code = 7783722462) 421 ug/dL 250-410 H Lab Interpretation (test code = Abnormal 28177-1) [facility] IRON BINDING [id number] 19:20:37 Test Item Value Reference Range Interpretation Comments TIBC (test code = 6613830814) 421 ug/dL 250-410 H Lab Interpretation (test code = Abnormal 23855-8) [facility] MET[facility]OLIC PANEL ([id number])2022-09-06 19:11:36 Test Item Value Reference Range Interpretation Comments NA (test code = 141 mmol/L 135-145 2093522437) K (test code = 3.9 mmol/L 3.5-5.0 3737271480) CL (test code = 109 mmol/L 98-108 H 1531316399) CO2 TOTAL (test code = 22 mmol/L 23-31 L 4735757468) AGAP (test code = 2-16 6759114728) BUN (test code = 16 mg/dL 7-23 4339004652) GLUCOSE (test code = 103 mg/dL 70-110 2405001183) CREATININE (test code = 0.58 mg/dL 0.60-1.25 L 7264415614) TOTAL BILI (test code = 1.7 mg/dL 0.1-1.1 H 5964487184) CALCIUM (test code = 8.4 mg/dL 8.6-10.6 L 8442070297) T PROTEIN (test code = 8.4 g/dL 6.3-8.2 H 1193364456) ALBUMIN (test code = 3.3 g/dL 3.5-5.0 L 9671733269) ALK PHOS (test code = 291 U/L 34-122 H 3723754742) ALTv (test code = 82 U/L 5-50 H 1742-6) AST(SGOT) (test code = 163 U/L 13-40 H 0546262813) eGFR (test code = mL/min/1.73m2 2016619593) ADALBERTO (test code = ADALBERTO) Association of Glomerular Filtration Rate (GFR) and Staging of Kidney Disease* + --+ --+ ------+| GFR (mL/min/1.73 m2) ?| With Kidney Damage ?| ?Without Kidney Damage+ --------+ --------+ +| ?>90 ?| ?Stage one ?| ? Normal ?+ ---+ ---+ -------+| ?60-89 ?| ?Stage two ?| ? Decreased GFR ? + --+ --+ ------+| ?30-59 ?| ?Stage three ?| ? Stage three ? + --+ --+ ------+| ?15-29 ?| ?Stage four ? | ? Stage four ?+ ---+ ---+ -------+| ?<15 (or dialysis) ? ?| ?Stage five ? | ? Stage five ?+ ---+ ---+ -------+ *Each stage assumes the associated GFR level has been in effect for at least three months. ?Stages 1 to 5, with or without kidney disease, indicate chronic kidney disease. Notes: Determination of stages one and two (with eGFR >59mL/min/1.73 m2) requires estimation of kidney damage for at least three months as defined by structural or functional abnormalities of the kidney, manifested by either:Pathological abnormalities or Markers of kidney damage (including abnormalities in the composition of the blood or urine or abnormalities in imaging tests). Lab Interpretation Abnormal (test code = 59637-5) [facility]. METABOLIC PANEL ([id number])2022-09-06 19:11:36 Test Item Value Reference Range Interpretation Comments NA (test code = 141 mmol/L 135-145 1365082170) K (test code = 3.9 mmol/L 3.5-5.0 9002660295) CL (test code = 109 mmol/L 98-108 H 0333282853) CO2 TOTAL (test code = 22 mmol/L 23-31 L 4671155801) AGAP (test code = 2-16 8323852347) BUN (test code = 16 mg/dL 7-23 0229125294) GLUCOSE (test code = 103 mg/dL 70-110 8913928676) CREATININE (test code = 0.58 mg/dL 0.60-1.25 L 8825338750) TOTAL BILI (test code = 1.7 mg/dL 0.1-1.1 H 1134628830) CALCIUM (test code = 8.4 mg/dL 8.6-10.6 L 2138277196) T PROTEIN (test code = 8.4 g/dL 6.3-8.2 H 7617974644) ALBUMIN (test code = 3.3 g/dL 3.5-5.0 L 5513066442) ALK PHOS (test code = 291 U/L 34-122 H 2040839560) ALTv (test code = 82 U/L 5-50 H 1742-6) AST(SGOT) (test code = 163 U/L 13-40 H 3592538308) eGFR (test code = mL/min/1.73m2 6682778323) ADALBERTO (test code = ADALBERTO) Association of Glomerular Filtration Rate (GFR) and Staging of Kidney Disease* + --+ --+ ------+| GFR (mL/min/1.73 m2) ?| With Kidney Damage ?| ?Without Kidney Damage+ --------+ --------+ +| ?>90 ?| ?Stage one ?| ? Normal ?+ ---+ ---+ -------+| ?60-89 ?| ?Stage two ?| ? Decreased GFR ? + --+ --+ ------+| ?30-59 ?| ?Stage three ?| ? Stage three ? + --+ --+ ------+| ?15-29 ?| ?Stage four ? | ? Stage four ?+ ---+ ---+ -------+| ?<15 (or dialysis) ? ?| ?Stage five ? | ? Stage five ?+ ---+ ---+ -------+ *Each stage assumes the associated GFR level has been in effect for at least three months. ?Stages 1 to 5, with or without kidney disease, indicate chronic kidney disease. Notes: Determination of stages one and two (with eGFR >59mL/min/1.73 m2) requires estimation of kidney damage for at least three months as defined by structural or functional abnormalities of the kidney, manifested by either:Pathological abnormalities or Markers of kidney damage (including abnormalities in the composition of the blood or urine or abnormalities in imaging tests). Lab Interpretation Abnormal (test code = 31310-9) [facility] WITH [id number] 18:47:14 Test Item Value Reference Range Interpretation Comments WBC (test code = See_Comment [Automated 8221-2) message] The sy stem which generated this result transmitted reference range : 4.20 - 10.70 10*3/?L. The reference range was not used to interpret this result as normal/abnormal . RBC (test code = See_Comment [Automated 941-7) message] The sy stem which generated this result transmitted reference range : 4.26 - 5.52 10*6/?L. The reference range was not used to interpret this result as normal/abnormal . HGB (test code = 14.0 g/dL 12.2-16.4 718-7) HCT (test code = 41.4 % 38.4-49.3 4544-3) MCV (test code = 94.5 fL 81.7-95.6 787-2) MCH (test code = 32.0 pg 26.1-32.7 785-6) MCHC (test code = 33.8 g/dL 31.2-35.0 786-4) RDW-SD (test code = 48.8 fL 38.5-51.6 91475-0) RDW-CV (test code = 14.2 % 12.1-15.4 788-0) PLT (test code = See_Comment L [Automated 777-3) message] The sy stem which generated this result transmitted reference range : 150 - 328 10*3/ ?L. The reference r daniele was not used to interpret this result as normal/abnormal . MPV (test code = 10.9 fL 9.8-13.0 82762-1) IPF % (test code = 4.3 % 1.2-10.7 Platelet count 7592579131) measured by fluorescence method. NRBC/100 WBC (test See_Comment [Automat ed code = 5463084642) message] The system which generated this result transmitted reference range : 0.0 - 10.0 /100 WBCs. The refer ence range was not u sed to interpret th is result as normal/abnormal . NRBC x10^3 (test code See_Comment [Auto mated = 9408920457) message] The s ystem which generated this result transmitted reference range : 10*3/?L. The reference range was not used to interpret this result as normal/abnormal . GRAN MAT (NEUT) % 65.2 % (test code = 770-8) IMM GRAN % (test code 0.40 % = 6582438088) LYMPH % (test code = 20.7 % 736-9) MONO % (test code = 7.3 % 5905-5) EOS % (test code = 5.8 % 713-8) BASO % (test code = 0.6 % 706-2) GRAN MAT x10^3(ANC) 3.51 10*3/uL 1.99-6.95 (test code = 0876237098) IMM GRAN x10^3 (test 0.00-0.06 code = 0374982159) LYMPH x10^3 (test code 1.11 10*3/uL 1.09-3.23 = 731-0) MONO x10^3 (test code 0.39 10*3/uL 0.36-1.02 = 742-7) EOS x10^3 (test code = 0.31 10*3/uL 0.06-0.53 711-2) BASO x10^3 (test code 0.03 10*3/uL 0.01-0.09 = 704-7) Lab Interpretation Abnormal (test code = 41206-5) [facility] WITH [id number] 18:47:14 Test Item Value Reference Range Interpretation Comments WBC (test code = See_Comment [Automated 6690-2) message] The sy stem which generated this result transmitted reference range : 4.20 - 10.70 10*3/?L. The reference range was not used to interpret this result as normal/abnormal . RBC (test code = See_Comment [Automated 789-8) message] The sy stem which generated this result transmitted reference range : 4.26 - 5.52 10*6/?L. The reference range was not used to interpret this result as normal/abnormal . HGB (test code = 14.0 g/dL 12.2-16.4 718-7) HCT (test code = 41.4 % 38.4-49.3 4544-3) MCV (test code = 94.5 fL 81.7-95.6 787-2) MCH (test code = 32.0 pg 26.1-32.7 785-6) MCHC (test code = 33.8 g/dL 31.2-35.0 786-4) RDW-SD (test code = 48.8 fL 38.5-51.6 04966-7) RDW-CV (test code = 14.2 % 12.1-15.4 788-0) PLT (test code = See_Comment L [Automated 777-3) message] The sy stem which generated this result transmitted reference range : 150 - 328 10*3/ ?L. The reference r daniele was not used to interpret this result as normal/abnormal . MPV (test code = 10.9 fL 9.8-13.0 64628-8) IPF % (test code = 4.3 % 1.2-10.7 Platelet count 6264035815) measured by fluorescence method. NRBC/100 WBC (test See_Comment [Automat ed code = 3112649507) message] The system which generated this result transmitted reference range : 0.0 - 10.0 /100 WBCs. The refer ence range was not u sed to interpret th is result as normal/abnormal . NRBC x10^3 (test code See_Comment [Auto mated = 8896064997) message] The s ystem which generated this result transmitted reference range : 10*3/?L. The reference range was not used to interpret this result as normal/abnormal . GRAN MAT (NEUT) % 65.2 % (test code = 770-8) IMM GRAN % (test code 0.40 % = 0463138745) LYMPH % (test code = 20.7 % 736-9) MONO % (test code = 7.3 % 5905-5) EOS % (test code = 5.8 % 713-8) BASO % (test code = 0.6 % 706-2) GRAN MAT x10^3(ANC) 3.51 10*3/uL 1.99-6.95 (test code = 4061261817) IMM GRAN x10^3 (test 0.00-0.06 code = 2667609162) LYMPH x10^3 (test code 1.11 10*3/uL 1.09-3.23 = 731-0) MONO x10^3 (test code 0.39 10*3/uL 0.36-1.02 = 742-7) EOS x10^3 (test code = 0.31 10*3/uL 0.06-0.53 711-2) BASO x10^3 (test code 0.03 10*3/uL 0.01-0.09 = 704-7) Lab Interpretation Abnormal (test code = 92363-6) [facility] 05:30:50 Test Item Value Reference Range Interpretation Comments FOLATE SER (test code = 16.9 ng/mL 3-20 4759373640) Lab Interpretation (test code = Normal 67031-0) [facility] 05:30:50 Test Item Value Reference Range Interpretation Comments FOLATE SER (test code = 16.9 ng/mL 3-20 5027235139) Lab Interpretation (test code = Normal 33707-8) [facility] 05:30:50 Test Item Value Reference Range Interpretation Comments FOLATE SER (test code = 16.9 ng/mL 3.0-20.0 9333862667) Lab Interpretation (test code = Normal 95151-0) [facility], [id number] 00:27:01 Test Item Value Reference Range Interpretation Comments VIT B12 (test code = 804 pg/mL 240-930 9237649794) ADALBERTO (test code = ADALBERTO) Biotin has been reported to cause a positive bias, interpret results relative to patient's use of biotin. Lab Interpretation (test Normal code = 06196-5) [facility] B12, [id number] 00:27:01 Test Item Value Reference Range Interpretation Comments VIT B12 (test code = 804 pg/mL 240-930 0304828652) ADALBERTO (test code = ADALBERTO) Biotin has been reported to cause a positive bias, interpret results relative to patient's use of biotin. Lab Interpretation (test Normal code = 57375-5) [facility] B12, [id number] 00:27:01 Test Item Value Reference Range Interpretation Comments VIT B12 (test code = 804 pg/mL 240-930 4984420512) ADALBERTO (test code = ADALBERTO) Biotin has been reported to cause a positive bias, interpret results relative to patient's use of biotin. Lab Interpretation (test Normal code = 49165-2) [facility] [id number] 19:38:11 Test Item Value Reference Range Interpretation Comments AFP (test code = 13.5 ng/mL See_Comment H [Automated 6058650095) message] The system which generated this result transmitted reference range : <=7.5. The reference range was not used to interpret this result as normal/abnormal . ADALBERTO (test code = ADALBERTO) Biotin has been reported to cause a negative bias, interpret results relative to patient's use of biotin. Lab Interpretation Abnormal (test code = 21811-8) [facility] [id number] 19:38:11 Test Item Value Reference Range Interpretation Comments AFP (test code = 13.5 ng/mL See_Comment H [Automated 8641830737) message] The system which generated this result transmitted reference range : <=7.5. The reference range was not used to interpret this result as normal/abnormal . ADALBERTO (test code = ADALBERTO) Biotin has been reported to cause a negative bias, interpret results relative to patient's use of biotin. Lab Interpretation Abnormal (test code = 28387-4) [facility] [id number] 19:38:11 Test Item Value Reference Range Interpretation Comments AFP (test code = 13.5 ng/mL See_Comment H [Automated 0164399714) message] The system which generated this result transmitted reference range : <=7.5. The reference range was not used to interpret this result as normal/abnormal . ADALBERTO (test code = ADALBERTO) Biotin has been reported to cause a negative bias, interpret results relative to patient's use of biotin. Lab Interpretation Abnormal (test code = 83678-1) [facility] [id number] 19:38:10 Test Item Value Reference Range Interpretation Comments FERRITIN (test code = 63.7 ng/mL 18-464 3649195729) ADALBERTO (test code = ADALBERTO) Biotin has been reported to cause a negative bias, interpret results relative to patient's use of biotin. Lab Interpretation (test Normal code = 34302-8) [facility] [id number] 19:38:10 Test Item Value Reference Range Interpretation Comments FERRITIN (test code = 63.7 ng/mL 18-464 [id number]) ADALBERTO (test code = ADALBERTO) Biotin has been reported to cause a negative bias, interpret results relative to patient's use of biotin. Lab Interpretation (test Normal code = 68089-7) [facility] [id number] 19:38:10 Test Item Value Reference Range Interpretation Comments FERRITIN (test code = 63.7 ng/mL 18.0-464.0 [id number]) ADALBERTO (test code = ADALBERTO) Biotin has been reported to cause a negative bias, interpret results relative to patient's use of biotin. Lab Interpretation (test Normal code = 84744-6) [facility] [id number] 19:09:00 Test Item Value Reference Range Interpretation Comments TIBC (test code = 0159386493) 439 ug/dL 250-410 H Lab Interpretation (test code = Abnormal 62977-9) [facility] IRON BINDING [id number] 19:09:00 Test Item Value Reference Range Interpretation Comments TIBC (test code = 3565745957) 439 ug/dL 250-410 H Lab Interpretation (test code = Abnormal 16742-3) [facility] IRON BINDING [id number] 19:09:00 Test Item Value Reference Range Interpretation Comments TIBC (test code = 2846746193) 439 ug/dL 250-410 H Lab Interpretation (test code = Abnormal 63025-3) [facility]AL[facility] [id number] 19:02:19 Test Item Value Reference Range Interpretation Comments LDH (test code = 6873516063) 229 U/L 120-246 Lab Interpretation (test code = Normal 98811-9) [facility] [id number] 19:02:19 Test Item Value Reference Range Interpretation Comments LDH (test code = 9861352423) 229 U/L 120-246 Lab Interpretation (test code = Normal 02755-7) [facility] [id number] 19:02:19 Test Item Value Reference Range Interpretation Comments LDH (test code = 2807915452) 229 U/L 120-246 Lab Interpretation (test code = Normal 12256-3) [facility]. METABOLIC PANEL ([id number])2022-05-24 18:56:36 Test Item Value Reference Range Interpretation Comments NA (test code = 141 mmol/L 135-145 3076721605) K (test code = 4.4 mmol/L 3.5-5 5945583757) CL (test code = 112 mmol/L 98-108 H 8060955266) CO2 TOTAL (test code = 27 mmol/L 23-31 4014341665) AGAP (test code = 2-16 1948356547) BUN (test code = 13 mg/dL 7-23 3336938805) GLUCOSE (test code = 90 mg/dL 70-110 6647299783) CREATININE (test code = 0.70 mg/dL 0.6-1.25 9587791933) TOTAL BILI (test code = 2.1 mg/dL 0.1-1.1 H 3219064569) CALCIUM (test code = 8.5 mg/dL 8.6-10.6 L 0092847344) T PROTEIN (test code = 9.0 g/dL 6.3-8.2 H 2907567154) ALBUMIN (test code = 3.6 g/dL 3.5-5 6289349542) ALK PHOS (test code = 277 U/L 34-122 H 0715206724) ALTv (test code = 132 U/L 5-50 H 1742-6) AST(SGOT) (test code = 218 U/L 13-40 H 9665836322) eGFR (test code = mL/min/1.73m2 2600142339) ADALBERTO (test code = ADALBERTO) Association of Glomerular Filtration Rate (GFR) and Staging of Kidney Disease* + --+ --+ ------+| GFR (mL/min/1.73 m2) ?| With Kidney Damage ?| ?Without Kidney Damage+ --------+ --------+ +| ?>90 ?| ?Stage one ?| ? Normal ?+ ---+ ---+ -------+| ?60-89 ?| ?Stage two ?| ? Decreased GFR ? + --+ --+ ------+| ?30-59 ?| ?Stage three ?| ? Stage three ? + --+ --+ ------+| ?15-29 ?| ?Stage four ? | ? Stage four ?+ ---+ ---+ -------+| ?<15 (or dialysis) ? ?| ?Stage five ? | ? Stage five ?+ ---+ ---+ -------+ *Each stage assumes the associated GFR level has been in effect for at least three months. ?Stages 1 to 5, with or without kidney disease, indicate chronic kidney disease. Notes: Determination of stages one and two (with eGFR >59mL/min/1.73 m2) requires estimation of kidney damage for at least three months as defined by structural or functional abnormalities of the kidney, manifested by either:Pathological abnormalities or Markers of kidney damage (including abnormalities in the composition of the blood or urine or abnormalities in imaging tests). Lab Interpretation Abnormal (test code = 23550-0) [facility] METABOLIC PANEL ([id number])2022-05-24 18:56:36 Test Item Value Reference Range Interpretation Comments NA (test code = 141 mmol/L 135-145 6878229449) K (test code = 4.4 mmol/L 3.5-5 4381350091) CL (test code = 112 mmol/L 98-108 H 9317217160) CO2 TOTAL (test code = 27 mmol/L 23-31 0619680322) AGAP (test code = 2-16 9083987886) BUN (test code = 13 mg/dL 7-23 1335178446) GLUCOSE (test code = 90 mg/dL 70-110 5028689413) CREATININE (test code = 0.70 mg/dL 0.6-1.25 9941506145) TOTAL BILI (test code = 2.1 mg/dL 0.1-1.1 H 8983645703) CALCIUM (test code = 8.5 mg/dL 8.6-10.6 L 3958936672) T PROTEIN (test code = 9.0 g/dL 6.3-8.2 H 1346106857) ALBUMIN (test code = 3.6 g/dL 3.5-5 6878222842) ALK PHOS (test code = 277 U/L 34-122 H 1307285000) ALTv (test code = 132 U/L 5-50 H 1742-6) AST(SGOT) (test code = 218 U/L 13-40 H 3756846573) eGFR (test code = mL/min/1.73m2 4311860550) ADALBERTO (test code = ADALBERTO) Association of Glomerular Filtration Rate (GFR) and Staging of Kidney Disease* + --+ --+ ------+| GFR (mL/min/1.73 m2) ?| With Kidney Damage ?| ?Without Kidney Damage+ --------+ --------+ +| ?>90 ?| ?Stage one ?| ? Normal ?+ ---+ ---+ -------+| ?60-89 ?| ?Stage two ?| ? Decreased GFR ? + --+ --+ ------+| ?30-59 ?| ?Stage three ?| ? Stage three ? + --+ --+ ------+| ?15-29 ?| ?Stage four ? | ? Stage four ?+ ---+ ---+ -------+| ?<15 (or dialysis) ? ?| ?Stage five ? | ? Stage five ?+ ---+ ---+ -------+ *Each stage assumes the associated GFR level has been in effect for at least three months. ?Stages 1 to 5, with or without kidney disease, indicate chronic kidney disease. Notes: Determination of stages one and two (with eGFR >59mL/min/1.73 m2) requires estimation of kidney damage for at least three months as defined by structural or functional abnormalities of the kidney, manifested by either:Pathological abnormalities or Markers of kidney damage (including abnormalities in the composition of the blood or urine or abnormalities in imaging tests). Lab Interpretation Abnormal (test code = 72864-7) [facility]. METABOLIC PANEL ([id number])2022-05-24 18:56:36 Test Item Value Reference Range Interpretation Comments NA (test code = 141 mmol/L 135-145 1424872454) K (test code = 4.4 mmol/L 3.5-5.0 9960970132) CL (test code = 112 mmol/L 98-108 H 4770523708) CO2 TOTAL (test code = 27 mmol/L 23-31 8083853099) AGAP (test code = 2-16 4725904816) BUN (test code = 13 mg/dL 7-23 3968928064) GLUCOSE (test code = 90 mg/dL 70-110 1664851355) CREATININE (test code = 0.70 mg/dL 0.60-1.25 7022962231) TOTAL BILI (test code = 2.1 mg/dL 0.1-1.1 H 4896346964) CALCIUM (test code = 8.5 mg/dL 8.6-10.6 L 3895862142) T PROTEIN (test code = 9.0 g/dL 6.3-8.2 H 0096042074) ALBUMIN (test code = 3.6 g/dL 3.5-5.0 3844943791) ALK PHOS (test code = 277 U/L 34-122 H 0414666201) ALTv (test code = 132 U/L 5-50 H 1742-6) AST(SGOT) (test code = 218 U/L 13-40 H 6314103211) eGFR (test code = mL/min/1.73m2 2937032678) ADALBERTO (test code = ADALBERTO) Association of Glomerular Filtration Rate (GFR) and Staging of Kidney Disease* + --+ --+ ------+| GFR (mL/min/1.73 m2) ?| With Kidney Damage ?| ?Without Kidney Damage+ --------+ --------+ +| ?>90 ?| ?Stage one ?| ? Normal ?+ ---+ ---+ -------+| ?60-89 ?| ?Stage two ?| ? Decreased GFR ? + --+ --+ ------+| ?30-59 ?| ?Stage three ?| ? Stage three ? + --+ --+ ------+| ?15-29 ?| ?Stage four ? | ? Stage four ?+ ---+ ---+ -------+| ?<15 (or dialysis) ? ?| ?Stage five ? | ? Stage five ?+ ---+ ---+ -------+ *Each stage assumes the associated GFR level has been in effect for at least three months. ?Stages 1 to 5, with or without kidney disease, indicate chronic kidney disease. Notes: Determination of stages one and two (with eGFR >59mL/min/1.73 m2) requires estimation of kidney damage for at least three months as defined by structural or functional abnormalities of the kidney, manifested by either:Pathological abnormalities or Markers of kidney damage (including abnormalities in the composition of the blood or urine or abnormalities in imaging tests). Lab Interpretation Abnormal (test code = 81998-9) [facility] WITH [id number] 18:45:18 Test Item Value Reference Range Interpretation Comments WBC (test code = See_Comment [Automated 7128-2) message] The sy stem which generated this result transmitted reference range : 4.20 - 10.70 10*3/?L. The reference range was not used to interpret this result as normal/abnormal . RBC (test code = See_Comment [Automated 090-6) message] The sy stem which generated this result transmitted reference range : 4.26 - 5.52 10*6/?L. The reference range was not used to interpret this result as normal/abnormal . HGB (test code = 14.2 g/dL 12.2-16.4 718-7) HCT (test code = 41.8 % 38.4-49.3 4544-3) MCV (test code = 93.9 fL 81.7-95.6 787-2) MCH (test code = 31.9 pg 26.1-32.7 785-6) MCHC (test code = 34.0 g/dL 31.2-35 786-4) RDW-SD (test code = 50.3 fL 38.5-51.6 96184-3) RDW-CV (test code = 14.6 % 12.1-15.4 788-0) PLT (test code = See_Comment L [Automated 777-3) message] The sy stem which generated this result transmitted reference range : 150 - 328 10*3/ ?L. The reference r daniele was not used to interpret this result as normal/abnormal . MPV (test code = 12.0 fL 9.8-13 69445-1) NRBC/100 WBC (test See_Comment [Automat ed code = 6848072598) message] The system which generated this result transmitted reference range : 0.0 - 10.0 /100 WBCs. The refer ence range was not u sed to interpret th is result as normal/abnormal . NRBC x10^3 (test code See_Comment [Auto mated = 4482233995) message] The s ystem which generated this result transmitted reference range : 10*3/?L. The reference range was not used to interpret this result as normal/abnormal . GRAN MAT (NEUT) % 64.8 % (test code = 770-8) IMM GRAN % (test code 0.60 % = 7463210242) LYMPH % (test code = 21.6 % 736-9) MONO % (test code = 6.2 % 5905-5) EOS % (test code = 6.0 % 713-8) BASO % (test code = 0.8 % 706-2) GRAN MAT x10^3(ANC) 3.36 10*3/uL 1.99-6.95 (test code = 8401605366) IMM GRAN x10^3 (test 0.03 10*3/uL 0-0.06 code = 6306539133) LYMPH x10^3 (test code 1.12 10*3/uL 1.09-3.23 = 731-0) MONO x10^3 (test code 0.32 10*3/uL 0.36-1.02 L = 742-7) EOS x10^3 (test code = 0.31 10*3/uL 0.06-0.53 711-2) BASO x10^3 (test code 0.04 10*3/uL 0.01-0.09 = 704-7) Lab Interpretation Abnormal (test code = 56936-1) [facility] WITH [id number] 18:45:18 Test Item Value Reference Range Interpretation Comments WBC (test code = See_Comment [Automated 5990-2) message] The sy stem which generated this result transmitted reference range : 4.20 - 10.70 10*3/?L. The reference range was not used to interpret this result as normal/abnormal . RBC (test code = See_Comment [Automated 409-8) message] The sy stem which generated this result transmitted reference range : 4.26 - 5.52 10*6/?L. The reference range was not used to interpret this result as normal/abnormal . HGB (test code = 14.2 g/dL 12.2-16.4 718-7) HCT (test code = 41.8 % 38.4-49.3 4544-3) MCV (test code = 93.9 fL 81.7-95.6 787-2) MCH (test code = 31.9 pg 26.1-32.7 785-6) MCHC (test code = 34.0 g/dL 31.2-35 786-4) RDW-SD (test code = 50.3 fL 38.5-51.6 26519-9) RDW-CV (test code = 14.6 % 12.1-15.4 788-0) PLT (test code = See_Comment L [Automated 777-3) message] The sy stem which generated this result transmitted reference range : 150 - 328 10*3/ ?L. The reference r daniele was not used to interpret this result as normal/abnormal . MPV (test code = 12.0 fL 9.8-13 60005-1) NRBC/100 WBC (test See_Comment [Automat ed code = 9018296387) message] The system which generated this result transmitted reference range : 0.0 - 10.0 /100 WBCs. The refer ence range was not u sed to interpret th is result as normal/abnormal . NRBC x10^3 (test code See_Comment [Auto mated = 2005441795) message] The s ystem which generated this result transmitted reference range : 10*3/?L. The reference range was not used to interpret this result as normal/abnormal . GRAN MAT (NEUT) % 64.8 % (test code = 770-8) IMM GRAN % (test code 0.60 % = 6542926366) LYMPH % (test code = 21.6 % 736-9) MONO % (test code = 6.2 % 5905-5) EOS % (test code = 6.0 % 713-8) BASO % (test code = 0.8 % 706-2) GRAN MAT x10^3(ANC) 3.36 10*3/uL 1.99-6.95 (test code = 6949591190) IMM GRAN x10^3 (test 0.03 10*3/uL 0-0.06 code = 9566428141) LYMPH x10^3 (test code 1.12 10*3/uL 1.09-3.23 = 731-0) MONO x10^3 (test code 0.32 10*3/uL 0.36-1.02 L = 742-7) EOS x10^3 (test code = 0.31 10*3/uL 0.06-0.53 711-2) BASO x10^3 (test code 0.04 10*3/uL 0.01-0.09 = 704-7) Lab Interpretation Abnormal (test code = 07564-1) [facility] WITH [id number] 18:45:18 Test Item Value Reference Range Interpretation Comments WBC (test code = See_Comment [Automated 2190-2) message] The sy stem which generated this result transmitted reference range : 4.20 - 10.70 10*3/?L. The reference range was not used to interpret this result as normal/abnormal . RBC (test code = See_Comment [Automated 609-8) message] The sy stem which generated this result transmitted reference range : 4.26 - 5.52 10*6/?L. The reference range was not used to interpret this result as normal/abnormal . HGB (test code = 14.2 g/dL 12.2-16.4 718-7) HCT (test code = 41.8 % 38.4-49.3 4544-3) MCV (test code = 93.9 fL 81.7-95.6 787-2) MCH (test code = 31.9 pg 26.1-32.7 785-6) MCHC (test code = 34.0 g/dL 31.2-35.0 786-4) RDW-SD (test code = 50.3 fL 38.5-51.6 28270-7) RDW-CV (test code = 14.6 % 12.1-15.4 788-0) PLT (test code = See_Comment L [Automated 777-3) message] The sy stem which generated this result transmitted reference range : 150 - 328 10*3/ ?L. The reference r daniele was not used to interpret this result as normal/abnormal . MPV (test code = 12.0 fL 9.8-13.0 52313-3) NRBC/100 WBC (test See_Comment [Automat ed code = 9720140480) message] The system which generated this result transmitted reference range : 0.0 - 10.0 /100 WBCs. The refer ence range was not u sed to interpret th is result as normal/abnormal . NRBC x10^3 (test code See_Comment [Auto mated = 5644639209) message] The s ystem which generated this result transmitted reference range : 10*3/?L. The reference range was not used to interpret this result as normal/abnormal . GRAN MAT (NEUT) % 64.8 % (test code = 770-8) IMM GRAN % (test code 0.60 % = 9538891333) LYMPH % (test code = 21.6 % 736-9) MONO % (test code = 6.2 % 5905-5) EOS % (test code = 6.0 % 713-8) BASO % (test code = 0.8 % 706-2) GRAN MAT x10^3(ANC) 3.36 10*3/uL 1.99-6.95 (test code = 9972709517) IMM GRAN x10^3 (test 0.03 10*3/uL 0.00-0.06 code = 7027199997) LYMPH x10^3 (test code 1.12 10*3/uL 1.09-3.23 = 731-0) MONO x10^3 (test code 0.32 10*3/uL 0.36-1.02 L = 742-7) EOS x10^3 (test code = 0.31 10*3/uL 0.06-0.53 711-2) BASO x10^3 (test code 0.04 10*3/uL 0.01-0.09 = 704-7) Lab Interpretation Abnormal (test code = 36284-4) [facility]"
[2022-11-02] MEDS ORDERED: NA CHLORIDE 0.9% 1,000 ML ONE ×2 (09:42→11:44)
[2022-11-02] MEDS ORDERED: FOLIC ACID 5 MG/ML VIAL ONE ×3 (09:42→11:44)
[2022-11-02 09:55] LABS: SARS-CoV-2 Antigen Rapid Res Negative (Negative)
[2022-11-02 09:59] LABS: Absolute Lymphocytes (CBC) 1.4 K/uL (0.7-4.9); Hematocrit 37.5 % (39.6-49.0); Lymphocytes % 25.7 % (15.3-44.8); MCV 92.4 fL (80-100); MPV 9.7 fL (7.6-11.3); RBC Red Blood Cell Count 4.05 M/uL (4.33-5.43)
[2022-11-02 10:03] LABS: Protime INR 1.66
[2022-11-02 10:17] LABS: Albumin 1.9 g/dL (3.4-5.0); Bilirubin Direct 2.8 mg/dL (0-0.2); Bilirubin Total 4.3 mg/dL (0.2-1.0); Magnesium 2.1 mg/dL (1.6-2.4); Potassium 3.9 mmol/L (3.5-5.1); Troponin High Sensitivity 19.3 pg/mL (<58.9)
--- NOTE | 2022-11-02 10:22 | RAD REPORT ---
EXAM DESCRIPTION: RAD - Chest Single View - 11/02/2022 10:13 am CLINICAL HISTORY: COUGH COMPARISON: Chest Single View dated 02/28/2020; Chest Single View dated 07/12/2019; CHEST SINGLE VIEW dated 08/29/2015; CHEST SINGLE VIEW dated 11/09/2013; Abdomen Pelvis W Contrast dated 02/28/2020; Abdom en Pelvis W Contrast dated 10/31/2019 FINDINGS: Lines: Right IJ approach Port-A-Cath. ACDF in the cervical spine. Lungs: Prominence of the pulmonary interstitium. No consolidation. Pleural: No significant pleural effusions or pneumothorax. Cardiac: Within normal limits. Mediastinum: Within normal limits. Bones: No acute fractures. ACDF Other: None IMPRESSION: Increased prominence of the pulmonary interstitium that could reflect mild interstitial edema, less likely atypical pneumonia.
--- NOTE | 2022-11-02 11:01 | RAD REPORT ---
EXAM DESCRIPTION: CT - CTHCSPWOC - 11/02/2022 10:48 am CLINICAL HISTORY: Trauma, head and neck injury. Pain COMPARISON: [id number] dated 09/23/2009No comparisons TECHNIQUE: Axial 5 mm thick images of the head were obtained. Axial 2 mm thick images of the cervical spine were obtained with sagittal and coronal reconstruction images generated and reviewed. All CT scans are performed using dose optimization technique as appropriate and may include automated exposure control or mA/KV adjustment according to patient size. FINDINGS: CT HEAD WITHOUT CONTRAST: No acute hemorrhage, hydrocephalus or extra-axial collection is identified.No areas of brain edema or midline shift. Trace left maxillary sinus thickening.The calvarium is intact. CT CERVICAL SPINE WITHOUT CONTRAST: No fracture or subluxation.No prevertebral soft tissues swelling is identified. Loss of the normal ce rvical lordosis. Status post C5 through T1 fusion. Corpectomy changes at C6-7. IMPRESSION: No acute intracranial or cervical spine findings.
--- NOTE | 2022-11-02 11:19 | ER ---
Nurse's Notes [facility] Name: Jas Styles Age: 62 yrs Sex: Male : 1960 Arrival Date: 11/02/2022 Time: 09:24 Bed 4 Private MD: Diagnosis: Muscle weakness (generalized)-upper extremities;Unspecified cirrhosis of liver;Bandemia Presentation: 11/02 09:26 Chief complaint: EMS states: noticed weakness to bilateral hands that progressed to ss bilateral arms since 1300 yesterday afternoon. Denies fever/ feeling ill. HX of Stage II Liver CA. Coronavirus screen: Client denies travel out of the [place] in the last 14 days. Ebola Screen: Patient denies exposure to infectious person. Patient denies travel to an Ebola-affected area in the 21 days before illness onset. Initial Sepsis Screen: Does the patient meet any 2 criteria? No. Patient's initial sepsis screen is negative. Does the patient have a suspected source of infection? No. Patient's initial sepsis screen is negative. Risk Assessment: Do you want to hurt yourself or someone else? Patient reports no desire to harm self or others. Onset of symptoms was November 01, 2022. 09:26 Method Of Arrival: EMS: [facility] 09:26 Acuity: SADE 3 ss Historical: - Allergies: 09:29 No Known Allergies; ss - Home Meds: 09:29 Chemo [Active]; ss - PMHx: 09:29 hepatitis B and C; LIVER CA; Liver cirrhosis; ss - PSHx: 09:29 spinal sx for infection; ss - Immunization history:: Adult Immunizations up to date. - Social history:: Smoking status: Patient denies any tobacco usage or history of. - Family history:: not pertinent. - Hospitalizations: : No recent hospitalization is reported. Screenin:59 [facility] ED Fall Risk Assessment (Adult) Score/Fall Risk Level 0 - 2 = Low Risk hb Oriented to surroundings, Maintained a safe environment, Educated pt \T\ family on fall prevention, incl call for assistance when getting out of bed. Abuse screen: Denies threats or abuse. Denies injuries from another. Nutritional screening: No deficits noted. Tuberculosis screening: No symptoms or risk factors identified. Assessment: 10:55 Reassessment: Patient appears in no apparent distress at this time. Patient and/or hb family updated on plan of care and expected duration. Pain level reassessed. Patient is alert, oriented x 3, equal unlabored respirations, skin warm/dry/pink. 15:00 Reassessment: attempted to call report to [facility], the nurse will call me back ko1 in about 20 minutes. Pain: Complains of pain in left arm and right arm. Vital Signs: 09:26 BP 152 / 91; Pulse 90; Resp 19; Temp 98.1(O); Pulse Ox 94% on R/A; Weight 81.65 kg; ss Height 5 ft. 9 in. (175.26 cm); Pain 7/10; 10:55 BP 117 / 60; Pulse 107; Resp 16; Pulse Ox 94% ; hb 11:34 BP 139 / 86; Pulse 87; Resp 21; Pulse Ox 97% on R/A; hb 12:00 BP 128 / 64; Pulse 67; Resp 18; Pulse Ox 99% ; ko1 13:05 BP 135 / 62; Pulse 72; Resp 18; Pulse Ox 98% ; ko1 14:57 BP 138 / 64; Pulse 74; Resp 18; Pulse Ox 99% ; ko1 09:26 Body Mass Index 26.58 (81.65 kg, 175.26 cm) NIH Stroke Scale Scores: 11:21 NIHSS Score: 7 denise ED Course: 09:24 Patient arrived in ED. eb 09:27 Robi Jaime MD is Attending Physician. denise 09:29 Gladys Novak, RN is Primary Nurse. ko1 09:29 Triage completed. ss 09:29 Arm band placed on right wrist. ss 09:30 Inserted saline lock: 22 gauge in left forearm, using aseptic technique. Blood ko1 collected. 09:36 Patient has correct armband on for positive identification. Placed in gown. Bed in low mm9 position. Call light in reach. Side rails up X2. Warm blanket given. Client placed on continuous cardiac and pulse oximetry monitoring. NIBP monitoring applied. residential monitor on. Pulse ox on. NIBP on. 09:36 SARS RAPID Sent. ko1 09:37 EKG done, by ED staff, reviewed by Robi Jaime MD. mm9 09:51 Basic Metabolic Panel Sent. ko1 09:51 CBC with Diff Sent. ko1 09:51 LFT's Sent. ko1 09:51 Magnesium Sent. ko1 09:51 NT PRO-BNP Sent. ko1 09:51 PT-INR Sent. ko1 09:51 Troponin HS Sent. ko1 10:15 XRAY Chest (1 view) In Process Unspecified. EDMS 10:50 CT Head C Spine In Process Unspecified. EDMS 12:01 initiated a transfer with SEVERINO Jacobsen from the [facility]. eb 12:[address] Penaloza the hospitalist librarian special collections for [facility] with Dr. Jaime eb for patient transfer consultation. 12:30 Urine Culture Sent. ko1 12:34 connected the hospitalist librarian special collections for [facility] with Dr. Jaime for eb patient transfer consultation. 13:30 administrative approval given by SEVERINO Jacobsen/ patient has been accepted to [facility] 4w 465/ Dr. Yfn De Leon has accepted the patient in transfer/ report to be called to [phone]. 14:10 initiated a transfer with Jackson from the [facility] transfer center at the request of the patient/ patient would like to go where he gets his chemo treatments. 14:15 connected the neurologist librarian special collections for [facility] with Dr. Jaime for patient eb transfer consultation. 14:[address] Rowell the hospitalist librarian special collections for [facility] with Dr. Jaime for eb patient transfer consultation. 14:42 Blood Culture Adult (2) Sent. ko1 14:43 administrative approval given by Kelechi Alonso/ patient has been accepted to [facility] 10c 1054/ Dr. Mike Calzada has accepted the patient in transfer/ report to be called to [phone]. 14:43 Lactate w/ 2H reflex if indic. Sent. ko1 14:43 CK Sent. ko1 14:43 Inserted saline lock: 20 gauge in right forearm, using aseptic technique. bc6 14:49 cancelled transfer with [facility] SEVERINO Jacobsen notified. eb 14:57 No provider procedures requiring assistance completed. Patient transferred, IV remains ko1 in place. Administered Medications: 09:51 Drug: NS 0.9% 1000 ml Route: IV; Rate: 1 bolus; Site: left forearm; ko1 09:51 Drug: foLIC Acid 1 mg Route: IVPB; Site: left forearm; ko1 11:44 Drug: Banana Bag - (NS 0.9% 1000 ml, foLIC Acid 1 mg, Thiamine 100 mg, Multivitamin 1 ko1 amp) Route: IV; Rate: 125 ml/hr; Site: left forearm; 12:35 Drug: Rocephin (cefTRIAXone) 1 grams Route: IV; Rate: per protocol; Site: left forearm; ko1 14:12 Drug: Decadron - Dexamethasone 10 mg Route: IVP; Site: left forearm; ko1 14:42 Drug: vancoMYCIN 1 grams Route: IVPB; Infused Over: 2 hrs; Site: left forearm; ko1 Medication: 10:59 VIS not applicable for this client. hb Outcome: 11:19 ER care complete, transfer ordered by denise 15:53 Transferred by private ambulance [facility]. to [facility], ko1 Transfer form completed. X-rays sent w/ patient. 15:53 Condition: stable 15:53 Discharge instructions given to EMS, Instructed on the need for transfer, Demonstrated understanding of instructions. 15:55 Patient left the ED. ko1 NIH Stroke Scale - NIH Stroke Score Date: 11/02/2022 Time: 11:21 Total Score = 7 1a. Level of Consciousness (LOC) - 0(Alert) 1b. Level of Consciousness (LOC) (Month \T\ Age) - 0(Both) 1c. LOC Commands (Open \T\ Closes Eyes/Web Marketing Strategist) - 0(Both) 2. Best Gaze (Lateral Gaze Paresis) - 0(Normal) 3. Visual Field Loss - 0(No visual loss) 4. Facial Palsy - 0(Normal) 5a. Left Arm: Motor (10-second hold) - 2(Drift, some effort against gravity) 5b. Right Arm: Motor (10-second hold) - 2(Drift, some effort against gravity) 6a. Left Leg: Motor (5-second hold - always test supine) - 0(No drift) 6b. Right Leg: Motor (5-second hold - always test supine) - 0(No drift) 7. Limb Ataxia (finger/nose \T\ heel/nieto - test with eyes open) - 2(Present in two limbs) 8. Sensory Loss (pinprick arms/legs/face) - 1(Mild to moderate loss) 9. Best Language: Aphasia (description/naming/reading) - 0(No aphasia) 10. Dysarthria (speech clarity - read or repeat words) - 0(Normal) 11. Extinction and Inattention (visual/tactile/auditory/spatial/personal) - 0(No abnormality) Initials: denise Signatures: Dispatcher [employer] Robi Rowley, Nely Mcelroy MD, cha, Pavithra Ignacio RN, RN RN hb Botello, Elizabeth eb Oliver, Kathy, RN RN [email or web address] Merced Styles [facility] Joselin Garcia [facility]
--- NOTE | 2022-11-02 11:19 | EDPHYS ---
Physician Documentation [facility] Name: Jas Styles Age: 62 yrs Sex: Male : 1960 Arrival Date: 11/02/2022 Time: 09:24 Bed 4 Private MD: ED Physician Robi Jaime HPI: 11/02 11:21 This 62 yrs old Male presents to ER via EMS with complaints of cant move denise bilateral upper extremities. 11:21 The patient or guardian complains of decreased range of motion, pain, that is acute. denise The complaints affect the right bicep, dorsal aspect of right forearm, right tricep and palmar aspect of right forearm, left bicep, dorsal aspect of left forearm, left tricep and palmar aspect of left forearm. Context: The problem was sustained at home, resulted from unknown cause. Onset: The symptoms/episode began/occurred yesterday. Treatment prior to arrival includes: no previous treatment. Modifying factors: The symptoms are alleviated by nothing. the symptoms are aggravated by nothing. Associated signs and symptoms: The patient has no apparent associated signs or symptoms. Severity of symptoms: At their worst the symptoms were moderate, in the emergency department the symptoms are actually worse, mildly. The patient has not experienced similar symptoms in the past. Historical: - Allergies: 09:29 No Known Allergies; ss - Home Meds: : Chemo [Active]; ss - PMHx: :29 hepatitis B and C; LIVER CA; Liver cirrhosis; ss - PSHx: 09:29 spinal sx for infection; ss - Immunization history:: Adult Immunizations up to date. - Social history:: Smoking status: Patient denies any tobacco usage or history of. - Family history:: not pertinent. - Hospitalizations: : No recent hospitalization is reported. ROS: 11:21 Constitutional: Negative for fever, chills, and weight loss, Eyes: Negative for injury, denise pain, redness, and discharge, ENT: Negative for injury, pain, and discharge, Neck: Negative for injury, pain, and swelling, Cardiovascular: Negative for chest pain, palpitations, and edema, Respiratory: Negative for shortness of breath, cough, wheezing, and pleuritic chest pain, Abdomen/GI: Negative for abdominal pain, nausea, vomiting, diarrhea, and constipation, Back: Negative for injury and pain, : Negative for injury, bleeding, discharge, and swelling, Skin: Negative for injury, rash, and discoloration, Psych: Negative for depression, anxiety, suicide ideation, homicidal ideation, and hallucinations, Allergy/Immunology: Negative for hives, rash, and allergies, Endocrine: Negative for neck swelling, polydipsia, polyuria, polyphagia, and marked weight changes, Hematologic/Lymphatic: Negative for swollen nodes, abnormal bleeding, and unusual bruising. 11:21 MS/extremity: Positive for decreased range of motion, pain, of the right arm and left arm. Exam: 11:21 Constitutional: This is a well developed, well nourished patient who is awake, alert, denise and in no acute distress. Head/Face: Normocephalic, atraumatic. Eyes: Pupils equal round and reactive to light, extra-ocular motions intact. Lids and lashes normal. Conjunctiva and sclera are non-icteric and not injected. Cornea within normal limits. Periorbital areas with no swelling, redness, or edema. ENT: Nares patent. No nasal discharge, no septal abnormalities noted. Tympanic membranes are normal and external auditory canals are clear. Oropharynx with no redness, swelling, or masses, exudates, or evidence of obstruction, uvula midline. Mucous membranes moist. Neck: Trachea midline, no thyromegaly or masses palpated, and no cervical lymphadenopathy. Supple, full range of motion without nuchal rigidity, or vertebral point tenderness. No Meningismus. Chest/axilla: Normal chest wall appearance and motion. Nontender with no deformity. No lesions are appreciated. Cardiovascular: Regular rate and rhythm with a normal S1 and S2. No gallops, murmurs, or rubs. Normal PMI, no JVD. No pulse deficits. Respiratory: Lungs have equal breath sounds bilaterally, clear to auscultation and percussion. No rales, rhonchi or wheezes noted. No increased work of breathing, no retractions or nasal flaring. Abdomen/GI: Soft, non-tender, with normal bowel sounds. No distension or tympany. No guarding or rebound. No evidence of tenderness throughout. Back: No spinal tenderness. No costovertebral tenderness. Full range of motion. Male : Normal genitalia with no discharge or lesions. Skin: Warm, dry with normal turgor. Normal color with no rashes, no lesions, and no evidence of cellulitis. Psych: Awake, alert, with orientation to person, place and time. Behavior, mood, and affect are within normal limits. 11:21 Musculoskeletal/extremity: ROM: full passive range of motion, in the right arm and left arm, limited active range of motion, Circulation is intact in all extremities. the right arm and left arm numbness, DVT Exam: no pain, no swelling, no tenderness, negative Homans' sign noted on exam, no appreciated bluish discoloration, no erythema, no increased warmth. 11:21 Neuro: Orientation: is normal, appropriate for stated age, no acute changes, to person, place, time, Mentation: is normal, appropriate for stated age, no acute changes, Memory: is normal, appropriate for stated age, no acute changes, Cranial nerves: grossly normal, is grossly normal based on the patient's age, no acute changes, Cerebellar function: is grossly normal, is grossly normal based on the patient's age, no acute changes, Romberg testing Sensation: numbness, that is mild, of the right arm and left arm, Gait: not tested. Deep tendon reflexes are 1 (trace) + in the right bicep and left bicep, Babinski testing is normal, seizure activity, is not displayed by the patient. Vital Signs: 09:26 BP 152 / 91; Pulse 90; Resp 19; Temp 98.1(O); Pulse Ox 94% on R/A; Weight 81.65 kg; ss Height 5 ft. 9 in. (175.26 cm); Pain 7/10; 10:55 BP 117 / 60; Pulse 107; Resp 16; Pulse Ox 94% ; hb 11:34 BP 139 / 86; Pulse 87; Resp 21; Pulse Ox 97% on R/A; hb 12:00 BP 128 / 64; Pulse 67; Resp 18; Pulse Ox 99% ; ko1 13:05 BP 135 / 62; Pulse 72; Resp 18; Pulse Ox 98% ; ko1 14:57 BP 138 / 64; Pulse 74; Resp 18; Pulse Ox 99% ; ko1 09:26 Body Mass Index 26.58 (81.65 kg, 175.26 cm) NIH Stroke Scale Scores: 11:21 NIHSS Score: 7 denise MDM: 09:27 Patient medically screened. denise 11:28 Differential diagnosis: contusion, tendonitis. Data reviewed: vital signs, nurses [facility] notes, lab test result(s), EKG, radiologic studies, CT scan, plain films. Consideration of Admission/Observation Patient was admitted/placed on observation. Escalation of care including admission/observation considered. I considered the following discharge prescriptions or medication management in the emergency department Medications were administered in the Emergency Department. See MAR. Test considered but Not performed: MRI: mri brain and spinal survey. Care significantly affected by the following chronic conditions: Liver Disease, liver cancer , hep b and c, cirrhosis. 11/02 09:28 Order name: Basic Metabolic Panel; Complete Time: 10:44 [facility] 11/02 09:28 Order name: CBC with Diff; Complete Time: 13:41 [facility] 11/02 09:28 Order name: LFT's; Complete Time: 10:44 [facility] 11/02 09:28 Order name: Magnesium; Complete Time: 10:44 [facility] 11/02 09:28 Order name: NT PRO-BNP; Complete Time: 10:44 [facility] 11/02 09:28 Order name: PT-INR; Complete Time: 10:44 [facility] 11/02 09:28 Order name: Troponin HS; Complete Time: 10:44 [facility] 11/02 09:28 Order name: SARS RAPID; Complete Time: 10:44 [facility] 11/02 11:58 Order name: Urine Dipstick-Ancillary; Complete Time: 12:22 [facility] 11/02 12:23 Order name: Urine Culture 11/02 13:39 Order name: Manual Differential; Complete Time: 13:41 [facility] 11/02 13:41 Order name: Blood Culture Adult (2) [facility] 11/02 13:41 Order name: Lactate w/ 2H reflex if indic. 11/02 14:20 Order name: CK [facility] 11/02 09:28 Order name: XRAY Chest (1 view); Complete Time: 10:44 [facility] 11/02 09:28 Order name: EKG; Complete Time: 09:29 denise 11/02 09:28 Order name: Cardiac monitoring; Complete Time: 09:30 [facility] 11/02 09:28 Order name: EKG - Nurse/Tech; Complete Time: 09:36 11/02 09:28 Order name: IV Saline Lock; Complete Time: 09:51 11/02 09:28 Order name: Labs collected and sent; Complete Time: 09:51 11/02 09:28 Order name: O2 Per Protocol; Complete Time: 09:30 denise 11/02 09:28 Order name: O2 Sat Monitoring; Complete Time: :30 denise 11/02 09:28 Order name: CT Head C Spine; Complete Time: 11:09 denise 11/02 09:28 Order name: Urine Dipstick-Ancillary (obtain specimen); Complete Time: 11:53 denise Administered Medications: 09:51 Drug: NS 0.9% 1000 ml Route: IV; Rate: 1 bolus; Site: left forearm; ko1 09:51 Drug: foLIC Acid 1 mg Route: IVPB; Site: left forearm; ko1 11:44 Drug: Banana Bag - (NS 0.9% 1000 ml, foLIC Acid 1 mg, Thiamine 100 mg, Multivitamin 1 ko1 amp) Route: IV; Rate: 125 ml/hr; Site: left forearm; 12:35 Drug: Rocephin (cefTRIAXone) 1 grams Route: IV; Rate: per protocol; Site: left forearm; ko1 14:12 Drug: Decadron - Dexamethasone 10 mg Route: IVP; Site: left forearm; ko1 14:42 Drug: vancoMYCIN 1 grams Route: IVPB; Infused Over: 2 hrs; Site: left forearm; ko1 Disposition Summary: 11/02/22 11:19 Transfer Ordered Transfer Location: [facility] denise Reason: Higher level of care denise Condition: Fair denise Problem: new denise Symptoms: are unchanged denise Accepting Physician: to [facility](11/02/22 15:55) ko1 Diagnosis - Muscle weakness (generalized) - upper extremities denise - Unspecified cirrhosis of liver denise - Bandemia denise Forms: - Medication Reconciliation Form denise - SBAR form denise NIH Stroke Scale - NIH Stroke Score Date: 11/02/2022 Time: 11:21 Total Score = 7 1a. Level of Consciousness (LOC) - 0(Alert) 1b. Level of Consciousness (LOC) (Month \T\ Age) - 0(Both) 1c. LOC Commands (Open \T\ Closes Eyes/Breakdown Person) - 0(Both) 2. Best Gaze (Lateral Gaze Paresis) - 0(Normal) 3. Visual Field Loss - 0(No visual loss) 4. Facial Palsy - 0(Normal) 5a. Left Arm: Motor (10-second hold) - 2(Drift, some effort against gravity) 5b. Right Arm: Motor (10-second hold) - 2(Drift, some effort against gravity) 6a. Left Leg: Motor (5-second hold - always test supine) - 0(No drift) 6b. Right Leg: Motor (5-second hold - always test supine) - 0(No drift) 7. Limb Ataxia (finger/nose \T\ heel/nieto - test with eyes open) - 2(Present in two limbs) 8. Sensory Loss (pinprick arms/legs/face) - 1(Mild to moderate loss) 9. Best Language: Aphasia (description/naming/reading) - 0(No aphasia) 10. Dysarthria (speech clarity - read or repeat words) - 0(Normal) 11. Extinction and Inattention (visual/tactile/auditory/spatial/personal) - 0(No abnormality) Initials: denise Signatures: Dispatcher [employer] Robi Rowley MD MD cha Smirch, Shelby, RN RN ss Oliver, Kathy, RN RN ko1 Corrections: (The following items were deleted from the chart) 13:42 11:19 to [facility], neuro denise denise 14:23 13:42 to [facility], neuro denise denise 15:55 14:23 to [facility] denise ko1
[2022-11-02] MEDS ORDERED: THIAMINE 200 MG/2 ML INJ ONE (11:41)
[2022-11-02] MEDS ORDERED: MULTIVITAMINS 10 ML VIAL (INJ) IV ONE (11:41)
[2022-11-02 11:58] LABS: Urine Blood Negative (Negative); Urine Glucose Trace (Negative); Urine Protein 2+ (Negative); Urine Specific Gravity 1.025 (1.005-1.030)
[2022-11-02] MEDS ORDERED: CEFTRIAXONE 1000 MG/VIAL ONE (12:36)
[2022-11-02 13:38] LABS: Platelet Estimate DECR
[2022-11-02 13:39] LABS: Blood Morphology Comment NOT SEEN (NOT SEEN)
[2022-11-02] MEDS ORDERED: dexAMETHasone 10 MG/ML VIAL ONE (14:03)
[2022-11-02] MEDS ORDERED: VANCOMYCIN 1 GM/VIAL ONE (14:03)
[2022-11-02] MEDS ORDERED: NA CHLORIDE 0.9% 250 ML ONE (14:05)
[2022-11-02 16:35] VITALS: TEMP 98.1
[2022-11-02 16:41] VITALS: BP 138/64; O2SAT 99
--- NOTE | 2022-11-05 17:22 | EKG ---
Test Date: 2022-11-02 Test Time: 09:38:34 Manuscript Reader: [employer] MEASUREMENT RESULTS: Intervals: Rate: 92 MT: 140 QRSD: 88 QT: 372 QTc: 460 [place]: P: -72 MT: 140 QRS: -2 T: 17 INTERPRETIVE STATEMENTS: Unusual P axis, possible ectopic atrial rhythm with premature supraventricular complexes Abnormal ECG Compared to ECG 02/28/2020 00:28:01 No significant changes Electronically Signed On 11-05-22 17:15:15 MANAGER MOBILITY by Rufus Castillo
== END 2022-11-02 15:55 | disposition short-term general hospital (02) ==
LOC: ER 09:20
DX: M62.81 Muscle weakness (generalized) (principal); D72.825 Bandemia; K74.60 Unspecified cirrhosis of liver; Z20.822 Contact with and (suspected) exposure to COVID-19
CPT/HCPCS: 36415; 70450; 71045; 72125; 80048; 80076; 81003; 82550; 83605; 83735; 83880; 84484; 85025; 85610; 87040; 87077; 87086; 87088; 87186; 87205; 87811; 93005; 96374; 96375; 99285; J1100; J3370; J3411; J7030; J7050